=== PATIENT | female | born 1940 | race Caucasian/White ===

== ENCOUNTER → 2023-10-24 13:02 | Outpatient (REF) | payer OTHER, SELFPAY | LOC: DHCBC MAIN 13:02 | PROVIDERS: ATTENDING PHYSICIAN Nurse Practitioner; FAMILY PHYSICIAN Family Medicine | DX: I48.91 Unspecified atrial fibrillation (principal); I34.0 Nonrheumatic mitral (valve) insufficiency; I35.1 Nonrheumatic aortic (valve) insufficiency | CPT/HCPCS: 93306 ==

== ENCOUNTER → 2023-11-05 12:19 | Outpatient (REF) | payer OTHER, SELFPAY ==
[2023-11-05 14:24] LABS: Blood Urea Nitrogen 28 mg/dl (7-17); Calcium 9.6 mg/dl (8.4-10.2); Carbon Dioxide 33 mmol/L (22-30); Chloride 98 mmol/L (98-107); Glucose 102 mg/dl (70-99); Potassium 4.1 mmol/L (3.5-5.1); Sodium 139 mmol/L (135-145); eGFR > 60.00
[2023-11-05 14:32] LABS: NT-proBNP 3420 pg/ml
== END ==
LOC: REG 12:19
PROVIDERS: ATTENDING PHYSICIAN Nurse Practitioner; FAMILY PHYSICIAN Family Medicine
DX: I10 Essential (primary) hypertension (principal)
CPT/HCPCS: 36415; 80048; 83880

== ENCOUNTER → 2023-11-15 13:22 | Outpatient (REF) | payer OTHER, SELFPAY ==
[2023-11-15 15:56] LABS: Blood Urea Nitrogen 30 mg/dl (7-17); Calcium 9.5 mg/dl (8.4-10.2); Carbon Dioxide 34 mmol/L (22-30); Chloride 94 mmol/L (98-107); Glucose 102 mg/dl (70-99); Potassium 4.6 mmol/L (3.5-5.1); Sodium 137 mmol/L (135-145); eGFR > 60.00
== END ==
LOC: REG 13:22
PROVIDERS: ATTENDING PHYSICIAN Nurse Practitioner; FAMILY PHYSICIAN Family Medicine
DX: I10 Essential (primary) hypertension (principal)
CPT/HCPCS: 36415; 80048

== ENCOUNTER → 2023-12-14 08:42 | Outpatient (REF) | payer OTHER, SELFPAY ==
[2023-12-14 10:38] LABS: Erythrocyte Sed Rate 82 mm/hour (0-20)
[2023-12-14 10:39] LABS: D-Dimer 2.51 ug/mlFEU (0.00-0.50)
[2023-12-15 18:20] LABS: ds-DNA Ab, IgG Reflex To Titer 57 IU (0-24)
[2023-12-16 07:17] LABS: Scleroderma Antibody (Scl-70) 3 AU/mL (0-40)
[2023-12-16 15:23] LABS: Rheumatoid Agg. Semi-quant 512 IU; Rheumatoid Agglutinin Positive (<10 IU)
[2023-12-16 17:55] LABS: ds-DNA Ab, IgG Titer <1:10 (<1:10)
[2023-12-17 07:37] LABS: Rheumatoid Agg. Semi-quant 512 IU
== END ==
LOC: REG 08:42
PROVIDERS: ATTENDING PHYSICIAN Internal Medicine Critical Care Medicine; FAMILY PHYSICIAN Family Medicine; REFERRING PHYSICIAN Internal Medicine Hematology & Oncology
DX: I27.20 Pulmonary hypertension, unspecified (principal)
CPT/HCPCS: 36415; 85379; 85652; 86140; 86225; 86235; 86256; 86430; 86431

== ENCOUNTER 2023-12-14 18:18 | Emergency (ER) | payer OTHER, SELFPAY ==
[2023-12-14 18:21] VITALS: BP 151/60; BMI 25.3
[2023-12-14 18:49] LABS: % Basophils 0.3 % (0-2); % Eosinophils 0.6 % (0-6); % Immature Granulocytes 0.4 % (0-0.5); % Lymphocytes 12.3 % (20.5-51.1); % Monocytes 11.3 % (1.7-9.3); % Neutrophils 75.1 % (42.2-75.2); Absolute Eosinophils 0.1 10^3/uL (0-0.7); Absolute Lymphocytes 1.1 10^3/uL (1.2-3.4); Absolute Neutrophils 6.8 10^3/uL (1.4-6.5); Hematocrit 34.9 % (37.0-47.0); Hemoglobin 11.2 g/dL (12.0-16.0); Mean Corp Hgb Conc. 32.1 g/dL (33.0-37.0); Mean Corpuscular Hgb 30.2 pg (27.0-31.0); Mean Corpuscular Volume 94.1 fL (81.0-99.0); Mean Platelet Volume 10.6 fL (7.4-10.4); Nucleated Red Blood Cells % 0 %; Platelet Count 240 10^3/uL (130-400); Red Blood Cell Count 3.71 10^6/uL (4.20-5.40); Red Cell Dist. Width 14.1 % (11.5-14.5)
[2023-12-14 19:00] LABS: INR 1.04; PT 13.4 Sec (11.4-14.6)
[2023-12-14 19:14] LABS: ALT (SGPT) 14 U/L (0-35); AST (SGOT) 24 U/L (14-36); Alkaline Phosphatase 91 U/L (38-126); Blood Urea Nitrogen 23 mg/dl (7-17); Calcium 9.7 mg/dl (8.4-10.2); Carbon Dioxide 30 mmol/L (22-30); Chloride 103 mmol/L (98-107); Estimated Creatinine Clearance 45 ml/min; Glucose 112 mg/dl (70-99); Potassium 4.2 mmol/L (3.5-5.1); Sodium 140 mmol/L (135-145); Total Bilirubin 0.7 mg/dl (0.2-1.3); Total Protein 7.1 g/dl (6.3-8.2); eGFR > 60.00
[2023-12-14 19:27] LABS: Troponin I < 0.012 ng/ml
[2023-12-14 21:11] VITALS: BP 142/62
--- NOTE | 2023-12-14 22:33 | ED.GENMED ---
History of Present Illness
General
Chief Complaint: Abnormal Lab Value
Source: patient
Exam Limitations: none
Time Seen by Provider: 12/14/23 19:35
Travel History
Have you had any contact with someone who has COVID-19?: No
Do you have any symptoms of coronavirus? Fever > 100 degrees, chills, cough, shortness of breath, sore throat, loss of taste or smell, muscle aches, or headache?: No
History of Present Illness
History of Present Illness:
This is a 83 year old female that comes in with c/o abd normal labs. States that Dr. Painter had blood work done and called her Tonight. States that she was told to come to the ER as her D-dimer was elevated and that he needs a CT and ultrasound.
Patient states that she has occasional diarrhea and a headache. Denies any fever, chill, chest pain, SOB, cough, abd pain, nausea, vomiting, dizziness, urinary burning
Past History
Past History
ED Past Medical History: Arrthythmia (Paroxysmal atrial fibrillation), HTN, Hypercholesterolemia and Other (Bleeding Ulcers, IBS, bilateral plantar foot ulcers, DVT right lower extremity June 2022, back pain, Migraines, Neuropathy, UTI, Iron def
anemia, )
ED Past Surgical History: Gynecological (Hysterectomy), Orthopedic (Left knee replacement and right hip, left knee surgery, Back surgery, ) and Other (Stomach surgery for Ulcers 1/2 stomach removed)
Social History
Tobacco: Non-smoker
Alcohol: None
Drug: None
Personal:
Living: with family
Employment: Retired
Family History
Family History: Hypertension
Review of Systems
Review of Systems
All Other Systems: ROS reviewed and negative except as documented in HPI and ROS
Constitutional: Reports no symptoms; Denies fever or chills
EENT: Reports no symptoms
Respiratory: Reports no symptoms; Denies cough or trouble breathing
Cardiac: Reports no symptoms; Denies chest pain
ABD/GI: Reports diarrhea; Denies abdominal pain, nausea or vomiting
: Reports no symptoms; Denies dysuria, frequency or urgency
Musculoskeletal: Reports no symptoms
Skin: Reports no symptoms
Neurological: Reports headache; Denies dizzy
Psychiatric: Reports no symptoms
Phy Exam
General Physical Exam
General Presentation: well appearing and no apparent distress
General age: appears stated age
General Skin: warm and dry
General Habitus: elderly
General Mental: alert
General Hydration: appears well hydrated
ENT Exam
ENT Exam: TM's normal, pharynx normal and neck supple
Eye Exam
Eye Exam: EOMI
Cardiovascular Exam
Cardiovascular Exam: no edema, normal peripheral pulses and irregularly irregular
Pulmonary Exam
Pulmonary Exam: lungs clear, no respiratory distress, no rales, chest non tender, no crackles, no rhonchi, no wheezing and no cough
Gastrointestinal Exam
Gastrointestinal Exam: normal bowel sounds, non tender, soft, no organomegaly, no pulsatile mass and non distended
Musculoskeletal Exam
Musculoskeletal Exam: full ROM and no edema
Skin Exam
Skin Exam: normal color, warm/dry, no rash and no petechia
Psychiatric Exam
Psychiatric Exam: normal mood/affect
Course
Orders/Labs/Results
Orders:
Orders
12/14/23 18:24
Electrocardiogram (*1) Urgent
Reason for Study: Chest Pain
EKG- Treatment ONCE
12/14/23 18:38
Complete Blood Count/With Diff Urgent
Comprehensive Metabolic Panel Urgent
Prothrombin Time Urgent
Troponin I Urgent
12/14/23 20:56
US Periph Venous LOWER Ext Ravin Urgent
Comment: History of DVT
Reason For Exam: Bilateral lower leg swelling
12/14/23 20:58
CT Chest Pe Study Urgent
Comment:
Reason For Exam: elevated D-dimer
Abnormal Lab Results
12/14/23
18:38
RBC 3.71 L 10^6/uL
(4.20-5.40)
Hgb 11.2 L g/dL
(12.0-16.0)
Hct 34.9 L %
(37.0-47.0)
MCHC 32.1 L g/dL
(33.0-37.0)
MPV 10.6 H fL
(7.4-10.4)
Absolute Neuts (auto) 6.8 H 10^3/uL
(1.4-6.5)
Absolute Lymphs (auto) 1.1 L 10^3/uL
(1.2-3.4)
Absolute Monos (auto) 1.0 H 10^3/uL
(0.1-0.6)
Lymphocytes % 12.3 L %
(20.5-51.1)
Monocytes % 11.3 H %
(1.7-9.3)
BUN 23 H mg/dl
(7-17)
Glucose 112 H mg/dl
(70-99)
12/14/23 18:38
12/14/23 18:38
H/H slightly low, Dehydration. glucose nonfasting. PT 13.4 with INR 1.04, Troponin <0.012
Vital Signs
Initial and Last Documented VS:
Initial Vital Signs
Temp Pulse Resp BP Pulse Ox
98.4 F 76 16 151/60 95
12/14/23 18:21 12/14/23 18:21 12/14/23 18:21 12/14/23 18:21 12/14/23 18:21
Last Documented Vital Signs
Temp Pulse Resp BP Pulse Ox
98.4 F 70 16 142/62 99
12/14/23 18:21 12/14/23 21:11 12/14/23 21:11 12/14/23 21:11 12/14/23 21:11
Paleobotanist consulted with Physician
Paleobotanist consulted with physician?: Yes
Name of Physician Consulted: Dr. Harris
MDM/Problems Addressed
Differential Diagnosis Includes:
PE, abnormal labs
MDM/Problems Addressed:
This is a 83 year old female that comes in with c/o abnormal labs. States that Manjula Painter had labs done and she was called tonight and told to go to the ER. States that her D-dimer was elevated and he wanted her to get a CT chest and US.
Will get labs and CT chest. If CT chest negative will get US.
Back into see patient. 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 Will start patent on Eliquis. Spoke with Dr. Harris and Dr. Gallego as patient is very stable and not hypoxic.
Spoke with Dr. Guaman and he wound not advise for or against. Will place patient on Eliquis and discharge home. Patient to return with any concerns.
Chronic conditions affecting care: Other (History of DVT)
Acute Exacerbation and/or Progression of Chronic Illness: Other (history of DVT)
*Radiology
Radiology exam reviewed: radiology read reviewed (CT NH-Satisfactory contrast bolus. Probable age indeterminate though likely acute pulmonary embolism within a right upper lobe segmental branch, with downstream subsegmental extension ([id number]).
Chronic nonocclusive pulmonary thromboembolism is also seen along a left upper lobe segment branch, ) and all reviewed NAD by ED Provider (CT cont- beginning at its origin ([id number]). No consolidation or effusion. Additional findings: Dependent
atelectasis. Cardiomegaly. Vascular calcifications including coronary artery calcifications. Aortic annular calcifications. DJD, Diffuse osteopenia. )
*Critical Care Note
Total Time (30-74mins, 75-104mins- exclusive of procedures): Not Applicable
ED Attending Note
-
Portions of this chart may have been created with voice recognition software.� Occasional wrong word or��sound alike� substitutions may have occurred due to the inherent limitations of voice recognition software.
Discharge Plan
Departure
Patient Disposition: Home (Routine Discharge)
Date of Disposition: 12/14/23
Time of Disposition: 22:47
Admit to: Telemetry
Patient with high blood pressure during this ER visit?: Yes
Condition: Good
Covid-19: Not Applicable
Discharge Problem:
right upper lobe Pulmonary embolism
Instructions: Pulmonary embolism (blood clot in the lungs), BLOOD PRESSURE
Prescriptions:
New
Eliquis 5 mg tablet
10 mg PO BID 7 Days Qty: 28 0RF
No Action
atorvastatin 20 MG tablet
20 mg PO DAILY
atenolol 50 MG tablet
50 mg PO DAILY
calcium polycarbophil [Fiber-Tabs] 625 MG tablet
625 mg PO DAILY
dicyclomine 10 MG capsule
10 mg PO Q8HPRN PRN (Reason: Abdominal Pain )
acetaminophen [Tylenol Extra Strength] 500 MG tablet
1,000 mg PO TID
pregabalin 100 mg capsule
100 mg PO DAILY
pregabalin 100 mg capsule
200 mg PO QPM
lisinopril 40 mg tablet
40 mg PO DAILY
duloxetine 60 mg capsule,delayed release(DR/EC)
60 mg PO DAILY
ferrous sulfate 325 mg (65 mg iron) tablet
325 mg PO DAILY Qty: 1 0RF
loperamide [Imodium A-D] 2 mg capsule
2 mg PO DAILYPRN PRN (Reason: diarrhea) Qty: 1 0RF
magnesium hydroxide [Milk of Magnesia] 400 mg/5 mL Suspension
2,400 mg PO [id number] PRN (Reason: if no bm on 3rd day)
bisacodyl [Dulcolax (bisacodyl)] 10 mg Suppository
10 mg DE DAILY PRN (Reason: if no bm aftr mom)
Fleet Enema 19-7 gram/118 mL Enema
118 ml DE DAILYPRN PRN (Reason: if no bm aftr dulcolax)
oxycodone 5 mg Tablet
5 mg PO Q4HPRN PRN (Reason: acute pain)
Eliquis 2.5 mg tablet
2.5 mg PO [id number]
Rx Instructions:
Switched from therapeutic dose to post op ortho prophylaxis dose for total of 4 more weeks and stop
Referrals:
Paul Painter MD [Active] - Follow up in 5-7 days
Jay Wilhelm MD [Family Provider] -
Activity Restrictions/Additional Instructions:
As discussed, you have a right upper lobe Pulmonary embolism. You have been started on Eliquis 10mg daily BID for the next 7 days. After this you will need a second Prescription for Eliquis 5mg BID from Dr. Painter. Please follow with Dr. Painter in
the next 5-7 days for recheck. IF YOU HAVE ANY SHORTNESS OF BREATH, CHEST PAIN, OR YOU HAVE ANY OTHER CONCERNS PLEASE RETURN TO THE EMERGENCY ROOM.
Interventions
Interventions:
*Risk Screen - Suicide Last Done: 12/14/23 18:21
*General Assessment Last Done: 12/14/23 19:37
*Neglect/Abuse Screening Last Done: 12/14/23 18:21
*ED COVID-19 Vaccine History Last Done: 12/14/23 18:21
Discharge Date and Time
Print Language: VIETNAMESE
[2023-12-14 23:00] VITALS: BP 164/69
[2023-12-14] MEDS: ELIQUIS 10 MG PO (23:03)
== END 2023-12-14 23:36 | disposition home or self-care (01) ==
LOC: EMR 18:18
PROVIDERS: Emergency Medicine; EMERGENCY PHYSICIAN Student in an Organized Health Care Education/Training Program; FAMILY PHYSICIAN Family Medicine
DX: I26.99 Other pulmonary embolism without acute cor pulmonale (principal); I48.0 Paroxysmal atrial fibrillation; I11.9 Hypertensive heart disease without heart failure; E78.00 Pure hypercholesterolemia, unspecified; K58.0 Irritable bowel syndrome with diarrhea; Z79.01 Long term (current) use of anticoagulants; Z82.49 Family history of ischemic heart disease and other diseases of the circulatory system; Z86.718 Personal history of other venous thrombosis and embolism; Z87.440 Personal history of urinary (tract) infections; Z90.710 Acquired absence of both cervix and uterus
CPT/HCPCS: 99284; 36415; 71275; 80053; 84484; 85025; 85379; 85610; 85652; 86140; 86225; 86235; 86256; 86430; 86431; 93005; Q9967

== ENCOUNTER → 2023-12-20 11:36 | Outpatient (REF) | payer OTHER, SELFPAY ==
[2023-12-23 11:52] LABS: Alpha-1-Antitrypsin 186 mg/dL (90-200); Alpha-1-Antitrypsin Phenotype M1M1
== END ==
LOC: REG 11:36
PROVIDERS: ATTENDING PHYSICIAN Internal Medicine Critical Care Medicine; FAMILY PHYSICIAN Family Medicine
DX: J44.9 Chronic obstructive pulmonary disease, unspecified (principal)
CPT/HCPCS: 36415; 82103; 82104

== ENCOUNTER → 2024-01-02 10:49 | Outpatient (REF) | payer OTHER, SELFPAY ==
[2024-01-04 18:23] LABS: Alpha-1-Antitrypsin 185 mg/dL (90-200)
== END ==
LOC: RAD 10:49
PROVIDERS: ATTENDING PHYSICIAN Internal Medicine Critical Care Medicine; FAMILY PHYSICIAN Family Medicine
DX: Z86.718 Personal history of other venous thrombosis and embolism (principal); I26.99 Other pulmonary embolism without acute cor pulmonale; J44.9 Chronic obstructive pulmonary disease, unspecified
CPT/HCPCS: 36415; 82103; 93970

== ENCOUNTER → 2024-01-08 15:26 | Outpatient (REF) | payer OTHER, SELFPAY | LOC: RAD 15:26 | PROVIDERS: ATTENDING PHYSICIAN Internal Medicine Critical Care Medicine; FAMILY PHYSICIAN Family Medicine | DX: I27.20 Pulmonary hypertension, unspecified (principal) | CPT/HCPCS: 71250 ==

== ENCOUNTER → 2024-01-15 11:19 | Outpatient (REF) | payer OTHER, SELFPAY | LOC: DHCBC/DCA 11:19 | PROVIDERS: ATTENDING PHYSICIAN Internal Medicine Cardiovascular Disease; FAMILY PHYSICIAN Family Medicine | DX: R06.09 Other forms of dyspnea (principal); R07.89 Other chest pain | CPT/HCPCS: 78452; 93017; A9500; J2785 ==

== ENCOUNTER → 2024-02-08 09:45 | Outpatient (REF) | payer OTHER, SELFPAY ==
[2024-02-08 11:34] LABS: Albumin 3.9 g/dl (3.5-5.0); Blood Urea Nitrogen 34 mg/dl (7-17); Calcium 9.9 mg/dl (8.4-10.2); Carbon Dioxide 30 mmol/L (22-30); Chloride 98 mmol/L (98-107); Glucose 88 mg/dl (70-99); Phosphorus 3.5 mg/dl (2.5-4.5); Potassium 4.4 mmol/L (3.5-5.1); Sodium 138 mmol/L (135-145); eGFR > 60.00
== END ==
LOC: REG 09:45
PROVIDERS: ATTENDING PHYSICIAN Internal Medicine Cardiovascular Disease; FAMILY PHYSICIAN Family Medicine
DX: R06.09 Other forms of dyspnea (principal); I10 Essential (primary) hypertension
CPT/HCPCS: 80048; 82040; 84100

== ENCOUNTER → 2024-02-22 10:45 | Outpatient (REF) | payer OTHER, SELFPAY ==
[2024-02-22 11:26] LABS: Reticulocyte Count 1.7 % (0.4-2.8)
[2024-02-22 11:52] LABS: Iron 53 ug/dl (37-170); LDH 184 U/L (120-246)
[2024-02-22 12:02] LABS: Percent Saturation 22 % (20-50); Total Iron Binding Capacity 231 ug/dl (265-497)
[2024-02-22 12:21] LABS: Erythrocyte Sed Rate 100 mm/hour (0-20)
[2024-02-22 12:43] LABS: Vitamin B12 > 1000 pg/ml (239-931)
[2024-02-24 13:44] LABS: % Basophils 0.5 % (0-2); % Eosinophils 1.2 % (0-6); % Immature Granulocytes 0.7 % (0-0.5); % Lymphocytes 14.7 % (20.5-51.1); % Monocytes 11.1 % (1.7-9.3); % Neutrophils 71.8 % (42.2-75.2); Absolute Lymphocytes 1.1 10^3/uL (1.2-3.4); Absolute Neutrophils 5.3 10^3/uL (1.4-6.5); Hematocrit 30.1 % (37.0-47.0); Hemoglobin 9.8 g/dL (12.0-16.0); Mean Corp Hgb Conc. 32.6 g/dL (33.0-37.0); Mean Corpuscular Hgb 29.3 pg (27.0-31.0); Mean Corpuscular Volume 90.1 fL (81.0-99.0); Mean Platelet Volume 11.1 fL (7.4-10.4); Platelet Count 242 10^3/uL (130-400); Red Blood Cell Count 3.34 10^6/uL (4.20-5.40); Red Cell Dist. Width 14.3 % (11.5-14.5); White Blood Cell Count 7.4 10^3/uL (4.8-10.8)
[2024-02-24 13:45] LABS: Absolute Eosinophils 0.1 10^3/uL (0-0.7); Absolute Immature Granulocytes 0.1 10^3/uL (0-0.05); Absolute Monocytes 0.8 10^3/uL (0.1-0.6); Nucleated Red Blood Cells % 0 %
[2024-02-24 15:45] LABS: Erythropoietin (EPO) 18 mU/mL (4-27)
[2024-02-24 17:02] LABS: Haptoglobin 256 mg/dL (30-200)
[2024-02-24 17:40] LABS: Beta-2-Microglobulin 4.1 mg/L (<=3.0)
== END ==
LOC: REG 10:45
PROVIDERS: ATTENDING PHYSICIAN Internal Medicine Hematology & Oncology; FAMILY PHYSICIAN Family Medicine
DX: D50.9 Iron deficiency anemia, unspecified (principal); D47.2 Monoclonal gammopathy; D64.9 Anemia, unspecified; D51.9 Vitamin B12 deficiency anemia, unspecified
CPT/HCPCS: 36415; 81240; 81241; 82232; 82595; 82607; 82668; 82728; 82784; 83010; 83521; 83540; 83550; 83615; 84155; 84165; 85025; 85045; 85652; 86146; 86147; 86157; 86334; 86880

== ENCOUNTER → 2024-03-13 08:42 | Outpatient (REF) | payer OTHER, SELFPAY ==
[2024-03-13 11:27] LABS: % Basophils 0.2 % (0-2); % Eosinophils 1.1 % (0-6); % Immature Granulocytes 0.5 % (0-0.5); % Lymphocytes 9.5 % (20.5-51.1); % Monocytes 12.4 % (1.7-9.3); % Neutrophils 76.3 % (42.2-75.2); Absolute Eosinophils 0.1 10^3/uL (0-0.7); Absolute Lymphocytes 0.8 10^3/uL (1.2-3.4); Absolute Neutrophils 6.2 10^3/uL (1.4-6.5); Hematocrit 32.2 % (37.0-47.0); Hemoglobin 10.3 g/dL (12.0-16.0); Mean Corpuscular Hgb 28.7 pg (27.0-31.0); Mean Corpuscular Volume 89.7 fL (81.0-99.0); Mean Platelet Volume 11.6 fL (7.4-10.4); Nucleated Red Blood Cells % 0 %; Platelet Count 201 10^3/uL (130-400); Red Blood Cell Count 3.59 10^6/uL (4.20-5.40); Red Cell Dist. Width 14.3 % (11.5-14.5); Reticulocyte Count 1.8 % (0.4-2.8); White Blood Cell Count 8.1 10^3/uL (4.8-10.8)
[2024-03-13 11:39] LABS: Blood Urea Nitrogen 36 mg/dl (7-17); Iron 40 ug/dl (37-170)
[2024-03-13 11:49] LABS: Percent Saturation 18 % (20-50); Total Iron Binding Capacity 217 ug/dl (265-497)
[2024-03-13 12:10] LABS: TSH Reflex To Free T4 2.15 uIU/ml (0.47-4.68)
== END ==
LOC: RAD 08:42
PROVIDERS: ATTENDING PHYSICIAN Internal Medicine Hematology & Oncology; FAMILY PHYSICIAN Family Medicine; REFERRING PHYSICIAN Nurse Practitioner
DX: D50.9 Iron deficiency anemia, unspecified (principal); D47.2 Monoclonal gammopathy; D64.9 Anemia, unspecified; D51.9 Vitamin B12 deficiency anemia, unspecified
CPT/HCPCS: 36415; 82565; 82728; 83540; 83550; 84443; 84520; 85025; 85045; 86850; 86900; 86901; 93971

== ENCOUNTER 2024-04-12 17:58 | Inpatient (IN) | payer OTHER, SELFPAY ==
[2024-04-12] VITALS (33 sets, daily range): BP systolic 71–143; BP diastolic 34–93; BMI 27.2; BMI 27.6
[2024-04-12 15:20] LABS: % Basophils 0.2 % (0-2); % Eosinophils 0.1 % (0-6); % Immature Granulocytes 2.5 % (0-0.5); % Monocytes 5.7 % (1.7-9.3); % Neutrophils 81.5 % (42.2-75.2); Absolute Immature Granulocytes 0.4 10^3/uL (0-0.05); Absolute Lymphocytes 1.7 10^3/uL (1.2-3.4); Absolute Neutrophils 14.1 10^3/uL (1.4-6.5); Hematocrit 33.7 % (37.0-47.0); Hemoglobin 11.2 g/dL (12.0-16.0); Mean Corp Hgb Conc. 33.2 g/dL (33.0-37.0); Mean Corpuscular Hgb 29.2 pg (27.0-31.0); Mean Corpuscular Volume 87.8 fL (81.0-99.0); Mean Platelet Volume 11.1 fL (7.4-10.4); Nucleated Red Blood Cells % 2.9 %; Platelet Count 390 10^3/uL (130-400); Red Blood Cell Count 3.84 10^6/uL (4.20-5.40); Red Cell Dist. Width 16.3 % (11.5-14.5); White Blood Cell Count 17.3 10^3/uL (4.8-10.8)
[2024-04-12] MEDS: NSS 500 IV ×2 (15:20→16:33)
[2024-04-12 15:35] LABS: Lactic Acid 4.7 mmol/L (0.7-2.0)
[2024-04-12 15:50] LABS: Troponin I 0.698 ng/ml
--- NOTE | 2024-04-12 15:54 | PHANOTE ---
med rec note- tried to talk to spouse about med list he said he copied directions from bottles, but directions on med list for Lyrica 100mg bid, but pharmacy show 100mg tid and ecw show 100mg hs. spouse asked patient and i believe i heard her say
100mg hs. med list provided by spouse natasha eid pharmacy list will also compare ecw and pharmacy
[2024-04-12 16:03] LABS: Venous Blood Gas HCO3 17.5 mmol/L (22-27); Venous Blood Gas O2 Sat % 90.9 %; Venous Blood Gas pCO2 39 mmHg (35-48); Venous Blood Gas pH 7.26 (7.32-7.43); Venous Blood Gas pO2 65 mmHg (30-50)
[2024-04-12 16:04] LABS: NT-proBNP > 27000 pg/ml
[2024-04-12] MEDS: LEVOPHED 250 IV (16:23)
[2024-04-12 16:26] LABS: Blood Urea Nitrogen 73 mg/dl (7-17); Calcium 8.7 mg/dl (8.4-10.2); Carbon Dioxide 16 mmol/L (22-30); Chloride 101 mmol/L (98-107); Estimated Creatinine Clearance 15 ml/min; Glucose 58 mg/dl (70-99); Sodium 134 mmol/L (135-145); eGFR 17.87
--- NOTE | 2024-04-12 16:35 | ED.GENMED ---
History of Present Illness
General
Chief Complaint: Breathing Problem
Source: patient and family
Exam Limitations: clinical condition
Time Seen by Provider: 04/12/24 14:58
History of Present Illness
History of Present Illness:
83-year-old lady with a history of A-fib, PE who presents with family due to feeling lethargic. Patient's states that she has been somewhat lethargic over several weeks and it seems to be waxing and waning. He states he only brought her in
today because he has been recurrent. He states a week or 2 ago she was similar for couple days. Patient is due for bone marrow biopsy because she is followed by hematology. In addition she has been dealing with a foot wound for some time. No
reported fevers. Patient states she just feels weak. She does not necessarily feel short of breath. No chest pain. She took her Eliquis today
Past History
Past History
ED Past Medical History: Arrthythmia (Paroxysmal atrial fibrillation), HTN, Hypercholesterolemia and Other (Bleeding Ulcers, IBS, bilateral plantar foot ulcers, DVT right lower extremity June 2022, back pain, Migraines, Neuropathy, UTI, Iron def
anemia, )
ED Past Surgical History: Gynecological (Hysterectomy), Orthopedic (Left knee replacement and right hip, left knee surgery, Back surgery, ) and Other (Stomach surgery for Ulcers 1/2 stomach removed)
Social History
Tobacco: Non-smoker
Alcohol: None
Drug: None
Personal:
Living: with family
Employment: Retired
Family History
Family History: Hypertension
Phy Exam
Physical Exam
Physical Exam:
CONSTITUTIONAL Patient alert and oriented to person, place and time. ill-appearing. Vital signs reviewed. Hypotensive, hypoxic, tachycardic
HEAD atraumatic, normocephalic.
EYES eyelids normal to inspection, Extraocular muscles intact, Conjunctiva normal, Sclera normal.
NECK normal range of motion, Trachea midline, no jugular venous distention.
RESPIRATORY CHEST grossly clear, slightly diminished at bilateral bases
CARDIOVASCULAR irregularly irregular and tachycardic
ABDOMEN abdomen nontender, Bowel sounds normal. No distention.
BACK normal inspection, no obvious deformities
UPPER EXTREMITY range of motion normal, Motor strength normal, cyanotic nailbeds, poor cap refill
LOWER EXTREMITY range of motion normal, Motor strength normal, cyanotic nailbeds, poor cap refill. Necrotic wound noted to the heel
NEURO Speech normal, No focal motor deficits, Rohan coma scale 15, Memory normal, Cranial Nerves intact to screening exam.
SKIN skin pale and cool.
Scores
Heart Failure Risk
Heart Failure Risk Score: Not Applicable
Course
Orders/Labs/Results
Orders:
Orders
04/12/24
Electrocardiogram (*1) Stat
Reason for Study: Atrial Fibrillation
Electrocardiogram (*1) Stat
Reason for Study: Atrial Fibrillation
04/12/24 Dinner
NPO
Allow oral meds: No
Allow clear liquids: Sips of Clears
NPO with Ice Chips: Yes
04/12/24 15:04
Cardiac Monitoring- Treatment ONCE
0.9% Sodium Chloride 500 ml [Nss] 500 ml IV BOLUS
CR Chest Portable - 1 View Urgent
Comment:
Reason For Exam: hypoxia
Reason Study Needs to be Portable: Patient Unstable
04/12/24 15:11
Complete Blood Count/With Diff Urgent
Lactic Acid Urgent
NT-proBNP Urgent
Troponin I Urgent
04/12/24 15:34
0.9% Sodium Chloride 500 ml [Nss] 500 ml IV BOLUS
04/12/24 15:46
Type+Screen Urgent
BBK Wristband Number:
Basic Metabolic Panel Urgent
COVID-19 Antigen Urgent
Source: Nasal Swab
Venous Blood Gas Stat
%Oxygen/Room Air: 85
Blood Culture Stat
VICENTE Source: Blood/Venous
Specimen Description:
08/18/24 16:18
NORepinephrine 4 MG/250 ML [Levophed] 4 mg in 250 ml IV NOW
Initial dose in mcg/min, then titrate:: 2
Titrate to keep:: MAP > 65 mmHg
Titrate by mcg/min:: 1-2 mcg/min
Frequency of titrations (minutes):: 5
Maximum dose in ICU in mcg/min:: 30
Maximum dose in IMU in mcg/min:: 8
Maximum dose in IVU in mcg/min:: 4
Begin to taper infusion when:: Remained at goal for 4hrs
Taper by mcg/min:: 1-2 mcg/min
Frequency of taper (minutes) if patient maintains goal:: 30
Taper to off?: Yes
If infusion off & no longer maintaining goal:: Contact Provider
Piperacillin/Tazo 3.375 Gram [Zosyn] 3.375 gram in 50 ml IV NOW
Vancomycin 1 Gram/200 ml [Vancocin] 1 gram in 200 ml IV NOW
04/12/24 16:34
CT Chest/abd/pel Wo Iv Cont Stat
Reason For Exam: hypoxia
04/12/24 17:34
Admit/Transfer Patient As Directed
Co-Sign Provider:
Level of Care: Inpatient admission
Assign to:: ICU
Physician / Group: Dr Lucero
Diagnosis: Septic shock/Respiratory Failure
Reason for Hospitalization: Patient presented with sepsis and respiratory failure
Expected length of stay greater than two midnights?: Yes
ELOS- Estimated Length of Stay in days: 4
I certify the patient meets the requirements for IP care: Yes
PRN Pain Medication Management As Directed
May give lesser potent ordered pain med per pt: Yes
preference::
Protocol:: Medication orders for pain may be administered in a
manner that supports deferring to patient preference
when the pt is:
- Requesting an ordered lesser potent pain medication.
Least to most potent pain medications are defined
as: acetaminophen < NSAID < tramadol < opioids
(morphine, oxycodone, hydromorphone).
- Requesting a lesser dose of the same medication IF
ORDERED.
- Requesting a less intrusive route of administration
if both routes are prescribed by the provider (PO <
IV).
04/12/24 17:35
Code Status As Directed
Resuscitation Status: Full Code
04/12/24 17:39
0.9% Sodium Chloride 1000 ml [Nss] 1,000 ml IV BOLUS
Oxygen Mask - Non-rebreather [RESP] Stat
04/12/24 17:40
It Security Administrator Consult Routine
Consulting Provider: Lisa Wynn
Was physician already notified: Yes
Reason for consult: Septic shock
04/12/24 17:45
NORepinephrine 4 MG/250 ML [Levophed] 4 mg in 250 ml IV PER PROTOCOL
Initial dose in mcg/min, then titrate:: 4
Titrate to keep:: MAP > 65 mmHg
Titrate by mcg/min:: 1-2 mcg/min
Frequency of titrations (minutes):: 5
Maximum dose in ICU in mcg/min:: 30
Maximum dose in IMU in mcg/min:: 8
Maximum dose in IVU in mcg/min:: 4
Begin to taper infusion when:: Remained at goal for 4hrs
Taper by mcg/min:: 1-2 mcg/min
Frequency of taper (minutes) if patient maintains goal:: 30
Taper to off?: Yes
If infusion off & no longer maintaining goal:: Contact Provider
04/12/24 17:49
Dextrose 50%-Water [Dextrose 50% Syringe] 25 grams .ROUTE .STK-MED ONE
Dextrose 50%-Water [Dextrose 50% Syringe] 25 grams IV NOW STA
04/12/24 18:00
Dextrose 5%/0.9%Sodchl 1000 ml [D5/0.9% Sodium Chloride] 1,000 ml IV 125 mls/hr
VANCOMYCIN Pharmacy to Dose [VANCOCIN Pharmacy to Dose] 1 each Pharmacy To Prepare [Call Pharmacy To Prepare] 0 ml IV PER PROTOCOL
04/12/24 19:30
Pantoprazole [Protonix IV] 40 mg IV DAILY
04/12/24 19:30
Activity As Directed
Activity Level: Bedrest for limited time
Bedrest duration in hours then activity as indicated above:: 12
Intake/ Output As Directed
Frequency: Per unit guidelines
Pneumatic Compression Sleeves As Directed
Type: Knee high
Vital Signs As Directed
Frequency: Per unit guidelines
DX Deep Vein Thrombosis Video Routine
04/12/24 19:51
Lactic Acid Q4H
Comment: repeat q4 hours x 4 or until less than 2 mmol/L
04/12/24 21:35
Urinalysis Reflex To Culture Stat
Date Specimen was Collected: 04/12/24
Time Specimen was Collected: 21:34
04/12/24 23:30
Lactic Acid Q4H
Comment: repeat q4 hours x 4 or until less than 2 mmol/L
04/13/24 03:30
Lactic Acid Q4H
Comment: repeat q4 hours x 4 or until less than 2 mmol/L
04/13/24 06:00
Complete Blood Count/With Diff IN AM
Comprehensive Metabolic Panel IN AM
04/13/24 07:30
Lactic Acid Q4H
Comment: repeat q4 hours x 4 or until less than 2 mmol/L
Abnormal Lab Results
04/12/24 04/12/24 04/12/24
15:11 15:46 17:46
WBC 17.3 H 10^3/uL
(4.8-10.8)
RBC 3.84 L 10^6/uL
(4.20-5.40)
Hgb 11.2 L g/dL
(12.0-16.0)
Hct 33.7 L %
(37.0-47.0)
RDW 16.3 H %
(11.5-14.5)
MPV 11.1 H fL
(7.4-10.4)
Abs Immat Gran (auto) 0.4 H 10^3/uL
(0-0.05)
Absolute Neuts (auto) 14.1 H 10^3/uL
(1.4-6.5)
Absolute Monos (auto) 1.0 H 10^3/uL
(0.1-0.6)
Immature Gran % 2.5 H %
(0-0.5)
Neutrophils % 81.5 H %
(42.2-75.2)
Lymphocytes % 10.0 L %
(20.5-51.1)
VBG pH 7.26 L
(7.32-7.43)
VBG pO2 65 H mmHg
(30-50)
VBG HCO3 17.5 L mmol/L
(22-27)
Sodium 134 L mmol/L
(135-145)
Carbon Dioxide 16 L mmol/L
(22-30)
BUN 73 H mg/dl
(7-17)
Creatinine 2.6 H mg/dL
(0.6-1.0)
Glucose 58 L mg/dl
(70-99)
Lactic Acid 4.7 H* mmol/L
(0.7-2.0)
Troponin I 0.698 H* ng/ml
POC Glucose 41 L* mg/dl
(70-99)
04/12/24 15:11
04/12/24 15:46
Vital Signs
Initial and Last Documented VS:
Initial Vital Signs
Pulse Resp BP
122 16 116/91
04/12/24 14:43 04/12/24 14:43 04/12/24 14:43
Last Documented Vital Signs
Temp Pulse Resp BP Pulse Ox
99.1 F 155 21 115/86 94
04/12/24 20:10 04/12/24 18:30 04/12/24 18:30 04/12/24 18:30 04/12/24 15:43
MDM/Problems Addressed
MDM/Problems Addressed:
Type II NSTEMI, acute renal failure, septic shock, necrotic foot ulcer, atrial fibrillation with RVR
*Radiology
Radiology exam reviewed: preliminary read by ED provider (Enlarged cardiac silhouette, no focal infiltrate)
*Pulse Oximetry
Patient hypoxic: yes
*EKG
Interpreted by ED Provider?: Yes
Interpretation: abnormal
Rate: tachycardiac
Rhythm: a-fib
Ischemia: non-specific ST changes
*Pig Iron Loader Interpretation
Rate: tachycardiac
Interpretation: abnormal
Rhythm: a-fib
*Critical Care Note
Total Time (30-74mins, 75-104mins- exclusive of procedures): 80 minutes
Data Reviewed
Review of Other/Old Records Reveals: Labs, Records and Radiology Studies (Prior CT scan)
Source: patient
Further Testing Considered But Not Given:
Consider CTA but given her renal function we will hold off given the fact that she is taking her Eliquis today.
Patient Management
Discussion with other providers: Hospitalist
Escalation/DeEscalation of care consider admission/obs:
Acutely and severely ill 83-year-old female. I suspect septic shock is the main etiology. She has a lactic acidosis. She also has very poor perfusion and I suspect her hypoxia is related to poor perfusion. Likely type II NSTEMI. Also in rapid
A-fib which is complicating her presentation then likely secondary to her severe septic shock. Did respond well to vasopressors. Need to be cautious with IV fluids as she already has pleural effusions on her CT scan. Held off on 30/kg due to
effusions bilaterally and hypoxia. Continue to monitor closely. Case was discussed at length with the patient's family and they are aware of her serious illness. Consideration of source to be her heel ulcer versus UTI. Urinalysis pending. Prior
urine cultures were reviewed. She has had E. coli and Klebsiella that were pansensitive. Admit to the ICU
Update Note
Update Note:
Blood sugar checked again and noted to be hypoglycemic. Treat with D50. Hospitalist aware. May need glucose in her fluids
ED Attending Note
-
Portions of this chart may have been created with voice recognition software.� Occasional wrong word or��sound alike� substitutions may have occurred due to the inherent limitations of voice recognition software.
Discharge Plan
Departure
Patient Disposition: Admit
Date of Disposition: 04/12/24
Time of Disposition: 16:35
Admit to: ICU
Presentation/result/management discussed w/ accepting MD/DO: Hospitalist
Discharge Problem:
Septic shock, Acute renal failure, Atrial fibrillation with RVR, Hypoxia, Acute lactic acidosis, Urinary tract infection
Interventions
Interventions:
*Risk Screen - Suicide Last Done: 04/12/24 15:12
*General Assessment Last Done: 04/12/24 15:12
*Neglect/Abuse Screening Last Done: 04/12/24 15:12
*ED COVID-19 Vaccine History Last Done: 04/12/24 20:42
*Nursing Disposition Last Done: 04/12/24 20:03
ED- Cardiac Assessment Last Done: 04/12/24 15:13
ED- Pulmonary Assessment Last Done: 04/12/24 16:00
Discharge Date and Time
Discharge Date/Time: 04/12/24 20:05
[2024-04-12 16:47] LABS: COVID-19 Antigen Negative (Negative)
[2024-04-12] MEDS: ZOSYN 50 IV ×2 (17:18→23:36)
--- NOTE | 2024-04-12 17:38 | HPS.HSE ---
Family Physician
-
Family Physician: Jay Wilhelm
Chief Complaint
-
Altered mental status and generalized weakness
History of Present Illness
Patient 83 years old female with history of hypertension, hyperlipidemia, A-fib, plantar foot ulcer, PE/DVT, UTIs in the past, presented to the hospital with mental status changes and generalized weakness. Patient's family including son and
and [id number] helping with some of the history as well. Patient has been weak for over 2 to 3 weeks and she has been noticed to have mental status changes over the last several days with decreased mentation associated with poor oral intake
and being very drowsy lately as well as confused and incoherent. She has been sleeping more than usual as well. She has some cough, has been dealing with ulcer in her foot for about a year and a half, and denies abdominal pain nausea or vomiting.
No dysuria urgency noticed. No chest pain. No shortness of breath but has been noticed to be laboring breathing today. No fevers or chills reported. 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 In the ER, she had a white count of 17,000 with a lactate of 4.[address] scan of chest and abdomen pelvis pending. She was given IV fluids 1 L but concerns due to respiratory status and was started on pressors.
She was referred to hospitalist for further evaluation.
Medical History
Past Medical History
Past Medical History: Reports HTN, Hypercholesterolemia and Other (On eliquis for Hx of DVT R LE discovered 06/2022 while hospitalized for cellulitis LLE. Also history of chronic wound left lower extremity. History of atrial fibrillation in the
past.)
Past Surgical History: Reports Orthopedic (Left TKA 08/29/16)
Social History
Tobacco: Non-smoker
Alcohol: None
Drug: None
Personal:
Living: With Family
Family History
Family History: Not pertinent
Allergies / Home Medications
Allergies reflects when Allergies were last updated in [facility].
Home Medications with original date entered in [facility]
Allergy/Medication List:
Allergies
Allergy/AdvReac Type Severity Reaction Status Date / Time
Sulfa (Sulfonamide Allergy Rash-1961 Verified 04/12/24 15:39
Antibiotics)
sulfamethoxazole Allergy Rash-1960 Verified 04/12/24 15:39
trimethoprim Allergy Rash-1960 Verified 04/12/24 15:39
Home Medications
atenolol 50 mg tablet 50 mg PO DAILY Blood pressure 08/01/16
atorvastatin 20 mg tablet 20 mg PO QPM High cholesterol 08/01/16
acetaminophen 500 mg tablet (Tylenol Extra Strength) 1,000 mg PO TIDPRN PRN mild pain 06/01/22
lisinopril 40 mg tablet 40 mg PO DAILY Blood pressure 07/24/22
pregabalin 100 mg capsule 100 mg PO HS Pain 07/24/22
duloxetine 60 mg capsule,delayed release 60 mg PO DAILY Pain 09/30/22
apixaban 5 mg tablet (Eliquis) 5 mg PO BID Blood clot prevention/tx 04/12/24
furosemide 20 mg tablet (Lasix) 20 mg PO BID 04/12/24
lisinopril 20 mg tablet 20 mg PO QPM 04/12/24
Review of Systems
-
A 12 point ROS was completed and negative except as noted: Yes
Physical Exam
Vital Signs
Vital Signs
Temp Pulse Resp BP Pulse Ox
99.4 F 133 16 84/37 94
04/12/24 15:50 04/12/24 16:16 04/12/24 16:16 04/12/24 16:16 04/12/24 15:43
Physical exam:
General: Acutely ill. Toxic appearance
HEENT: Normocephalic, Atraumatic and Dry Mucous Membranes
Respiratory: Decreased breath sounds bilateral; Clear to Auscultation; Negative Wheezes, Rales or Rhonchi
Cardiac: Irregular rate and rhythm, tachycardic, and S1/S2, systolic murmur
GI: Soft, Nontender and Nondistended
Musculoskeletal: Left heel wound with some erythema, no discharge noticed. No Clubbing, No Cyanosis and No Edema
Neuro: Lethargic, does follow simple commands and answer questions appropriately but goes back to sleep. No focality on her exam.
Physical Exam
General: Other
Laboratory Results
-
04/12/24 15:11
04/12/24 15:46
Laboratory Results
Lactic Acid 4.7 mmol/L (0.7-2.0) H* 04/12/24 15:11
Total Bilirubin Cancelled 04/12/24 15:46
AST Cancelled 04/12/24 15:46
ALT Cancelled 04/12/24 15:46
Alkaline Phosphatase Cancelled 04/12/24 15:46
Troponin I 0.698 ng/ml H* 04/12/24 15:11
Impression/Plan
-
IMPRESSION:
Patient 83 years female with multiple comorbidities came into the hospital with generalized weakness and mental status changes and found to be in septic shock. Patient critically ill and with increased risk morbidity mortality and needs to be in
the hospital for treatment and monitoring.
PLAN:
Septic shock with multiorgan failure:
Broad-spectrum antibiotics, Zosyn and vancomycin
Unclear source
Another liter bolus normal saline wide open
Continue with IV fluids but hopefully with pressors we can attenuate needs for fluid
Continue Levophed for MAP of 65
Follow-up cultures
Obtain UA urine culture
Obtain cultures from the wound on the left foot.
Follow-up trend of white blood cell count-current WBC 17
Trend lactate-current lactate 4.7
Follow-up temperature curve
CT chest and abdomen and pelvis pending report. On my review just some pleural effusions and nonspecific findings but nothing acutely abnormal.
Seen chest x-ray as well and no acute chest pathology.
Discussed with family at bedside and explained the seriousness of the situation and guarded prognosis. Family wishes to proceed with aggressive measures including antibiotics, pressors, mechanical ventilation if required and will reevaluate
depending on her clinical course.
COVID-19 negative
Critical care consult ([place] texted today)- who will likely see her tomorrow
Acute hypoxic respiratory failure:
Due to sepsis and underlying valvulopathy and heart failure
Nonrebreather mask at this point 100%
We can use also BiPAP if needed
Keep n.p.o. given acute situation and likely need for intubation until clinical improvement noticed and then can start oral intake
Ultimately might need intubation and mechanical ventilation if worsens explained this to patient and family at bedside.
Atrial fibrillation with rapid ventricular response:
Worsening due to sepsis
Once we get septic picture under control, we should be able to control A-fib
Might consider amiodarone drip if heart rate does not improve and for less effect on hemodynamic
Hold Eliquis tonight due to respiratory status. Consider heparin drip if prolonged n.p.o. status or if cardiac enzymes worsens otherwise we will go back to Eliquis tomorrow
Cardiac monitoring
Acute kidney injury:
Creatinine 2.6 today
Drummond catheter for critical illness and acute kidney injury
Avoid nephrotoxic
Hyponatremia:
Monitor sodium closely
Elevated troponin:
Elevated troponin likely due to non-ischemic myocardial injury due to sepsis
Cannot rule out ACS yet
Consider heparin drip if cardiac enzymes considerably worsens
Trend cardiac enzymes
Cardiac monitoring
Anemia and pancytopenia in the past:
Monitor hemoglobin closely
Family tells me that is in the works of bone marrow biopsy for suspicions of diagnosis of non-Hodgkin lymphoma
Acute on chronic diastolic congestive heart failure:
Will diurese after hemodynamic improves
Reviewed latest echocardiogram in our system
BNP over 27,000
Septic and toxic metabolic encephalopathy:
Etiology sepsis but also hypoglycemia contributing
Provide D50 and D5 with normal saline
Monitor mental status and glucose closely
Metabolic acidosis:
IV fluids
If worsens may need bicarb drip
Continue to monitor
Left foot wound:
Antibiotics
Cultures
DVT prophylaxis:
SCDs
Will resume Eliquis likely by tomorrow
CODE STATUS:
Full code
Total Critical Care Time 65 minutes. I was immediately available to the patient and staff. I personally examined, reviewed labs, diagnostic images/reports, interpretations, treatment plans, discussed patient care with other providers and family
or caregivers (if patient is unable to make decisions), entered orders as appropriate and documented the medical record.
[2024-04-12 17:49] LABS: Glucose - Point of Care 41 mg/dl (70-99)
[2024-04-12] MEDS: DEXTROSE 50% SYRINGE 25 GRAMS IV (17:50)
[2024-04-12] MEDS: NSS 1000 IV (18:16)
[2024-04-12 18:21] LABS: Glucose - Point of Care 99 mg/dl (70-99)
--- NOTE | 2024-04-12 18:50 | PHA.VAN.IN ---
Assessment
- Assessment
Renal Function: Appears elevated from baseline (SCR 2.6 vs ~0.8)
Concomitant Antimicrobials: piperacillin/tazobactam
Plan
- Plan
Initial / Loading Dose: 1000mg - 04/12 19:04 PLUS 500mg - administration pending
Maintenance Regimen: dosing by level
Monitoring: random 04/13 06
Pharmacokinetics Vancomycin I
- -
Patient Age: 83
Patient Sex: Female
Vancomycin Day #: 1
Indication: Bacteremia
Requesting Provider: Dr. Lucero
Pertinent Antimicrobial Allergies:
sulfonamide antibiotics - rash in 1961
Height / Weight:
Height 5 ft 2 in
Actual Weight 67.4 kg
- Vital Signs / Lab Results
Temp Pulse Resp BP Pulse Ox
99.4 F 155 21 115/86 94
04/12/24 15:50 04/12/24 18:30 04/12/24 18:30 04/12/24 18:30 04/12/24 15:43
Lab Results - Hematology
04/12/24
15:11
WBC 17.3 H
Lab Results - Chemistry
04/12/24 04/12/24
15:11 15:46
BUN Cancelled 73 H
Creatinine Cancelled 2.6 H
Estimated Creat Clear Cancelled 15
Albumin Cancelled Cancelled
04/12/24
15:11
Lactic Acid 4.7 H*
[2024-04-12] MEDS: VANCOCIN 200 IV (19:04)
[2024-04-12 20:17] LABS: Lactic Acid 5.3 mmol/L (0.7-2.0)
[2024-04-12 20:28] LABS: Blood Urea Nitrogen 72 mg/dl (7-17); Calcium 8.9 mg/dl (8.4-10.2); Carbon Dioxide 10 mmol/L (22-30); Chloride 104 mmol/L (98-107); Estimated Creatinine Clearance 15 ml/min; Glucose 117 mg/dl (70-99); Magnesium 1.7 mg/dl (1.6-2.3); Phosphorus 8.2 mg/dl (2.5-4.5); Potassium 5.6 mmol/L (3.5-5.1); Sodium 135 mmol/L (135-145); eGFR 17.87
[2024-04-12] MEDS: PROTONIX IV 40 MG IV (20:34)
[2024-04-12] MEDS: NSS (PRESERVATIVE FREE) 10 ML IV (20:34)
[2024-04-12] MEDS: SODIUM BICARBONATE 50 MEQ IV (20:49)
[2024-04-12] MEDS: VANCOCIN HCL 500 MG 100 IV (21:12)
[2024-04-12] MEDS: SODIUM BICARBONATE 1150 MEQ IV (21:37)
[2024-04-12 21:41] LABS: Urine Albumin 1+ (Neg - Trace); Urine Bilirubin 1+ (Negative); Urine Character Clear (Clear); Urine Color Yellow; Urine Glucose Negative (Negative); Urine Ketone Trace (Negative); Urine Leukocyte 2+ (Negative); Urine Nitrite Negative (Negative); Urine Occult Blood Trace (Negative); Urine Specific Gravity 1.025 (<1.030); Urine Urobilinogen 1+ (Neg - 1+)
[2024-04-12 21:48] LABS: Urine Urothelial Cell 0-2 /LPF (FEW)
[2024-04-12 21:49] LABS: Urine Bacteria Many (Negative); Urine Red Blood Cell 0-2 /HPF (0-2); Urine White Cell 80-90 /HPF (0-5)
[2024-04-12 21:53] LABS: APTT 35.2 Sec (23.4-35.0); INR 3.57; PT 35.7 Sec (11.4-14.6)
--- NOTE | 2024-04-12 22:00 | PTCARENOTE ---
Received pt at 1930 from ED to ICU 3371. Pt. alert and oriented x3 but drowsy, stating she just wants to sleep. Easily arousable. TAVAREZ but weak. Afib on tele, HR 110s-130s. MANAGEMENT ANALYST aware- monitor for now. Afebrile via rectal probe. Trace LE edema.
Levophed infusing on arrival- titrated to off, MAP >65. BP 100s-110s/60s. Received on 15L midflow + NRB. Difficulty getting pulse ox but when able, >95%. Currently on 13L midflow. Lungs diminished throughout. Round abd, hypoactive bowel sounds. NPO.
Had small smear of BM on arrival. Drummond inserted - draining aziza, cloudy urine. UA sent per order. L heel wound cleansed and dressed w/ wet to dry and dae. R lateral foot with small ulcer - covered with foam. Bicarb gtt @ 150ml/hr infusing. Labs
reviewed with MANAGEMENT ANALYST. Pt. resting calmly.
--- NOTE | 2024-04-12 22:32 | W.PN.SEPSIS ---
Sepsis
Vital Signs
Temp Pulse Resp BP Pulse Ox
99.1 F 155 21 115/86 94
04/12/24 20:10 04/12/24 18:30 04/12/24 18:30 04/12/24 18:30 04/12/24 15:43
Physical Exam
Physical Exam:
A focused exam was performed after fluid resuscitation.
Capillary Refill
Bilateral Upper Extremity:
Eunice Time: Less than 3 sec
Bilateral Lower Extremity:
Eunice Time: Less than 3 sec
Pulse Evaluation
Bilateral Radial:
Pulse Evaluation: Present
Bilateral Dorsalis Pedis:
Pulse Evaluation: Present
[2024-04-13] VITALS (97 sets, daily range): BP systolic 74–131; BP diastolic 48–101; BMI 28.3
[2024-04-13] LABS: Glucose - Point of Care 112 mg/dl (70-99)
[2024-04-13 00:48] LABS: Lactic Acid 3.9 mmol/L (0.7-2.0)
[2024-04-13 00:50] LABS: Troponin I 0.961 ng/ml
--- NOTE | 2024-04-13 01:27 | PTCARENOTE ---
Urine output 10-20ml/hr. Required levophed to be restarted for BP 80s/40s. Repeat BMP ordered and drawn.
[2024-04-13 01:44] LABS: Blood Urea Nitrogen 75 mg/dl (7-17); Calcium 7.9 mg/dl (8.4-10.2); Carbon Dioxide 21 mmol/L (22-30); Chloride 101 mmol/L (98-107); Estimated Creatinine Clearance 16 ml/min; Glucose 201 mg/dl (70-99); Potassium 4.5 mmol/L (3.5-5.1); Sodium 134 mmol/L (135-145); eGFR 19.67
--- NOTE | 2024-04-13 01:54 | VATNOTE ---
04/13 Paged by PCN for additional IV access, new IV placed in left arm. PCN mentioned right upper arm infiltrate from ER. Right upper arm swollen, no redness and does not seem painful to patient.
[2024-04-13] MEDS: SODIUM BICARBONATE 1150 MEQ IV (03:30)
[2024-04-13 04:44] LABS: Venous Blood Gas B.E. -2.3 mmol/L (-4 to +4); Venous Blood Gas HCO3 23.7 mmol/L (22-27); Venous Blood Gas pCO2 45 mmHg (35-48); Venous Blood Gas pH 7.33 (7.32-7.43); Venous Blood Gas pO2 133 mmHg (30-50)
[2024-04-13 04:46] LABS: % Basophils 0.4 % (0-2); % Eosinophils 0.4 % (0-6); % Immature Granulocytes 2.2 % (0-0.5); % Lymphocytes 12.6 % (20.5-51.1); % Monocytes 8.6 % (1.7-9.3); % Neutrophils 75.8 % (42.2-75.2); Absolute Basophils 0.1 10^3/uL (0-0.2); Absolute Eosinophils 0.1 10^3/uL (0-0.7); Absolute Immature Granulocytes 0.4 10^3/uL (0-0.05); Absolute Monocytes 1.4 10^3/uL (0.1-0.6); Absolute Neutrophils 12.2 10^3/uL (1.4-6.5); Hemoglobin 10.4 g/dL (12.0-16.0); Mean Corp Hgb Conc. 33.5 g/dL (33.0-37.0); Mean Corpuscular Hgb 29.3 pg (27.0-31.0); Mean Corpuscular Volume 87.3 fL (81.0-99.0); Mean Platelet Volume 10.8 fL (7.4-10.4); Nucleated Red Blood Cells % 3.2 %; Platelet Count 330 10^3/uL (130-400); Red Blood Cell Count 3.55 10^6/uL (4.20-5.40); Red Cell Dist. Width 15.9 % (11.5-14.5); White Blood Cell Count 16.1 10^3/uL (4.8-10.8)
--- NOTE | 2024-04-13 04:59 | PTCARENOTE ---
Pt reassessed. Urine output remains poor, 0-10 ml/hr. ICE CREAM MACHINE OPERATOR aware- no new orders at this time, await blood work results and monitor. On and off low dose levophed throughout the night to maintain MAP >65. Remains afib, HR 100-120. Weaned O2 to 2L NC.
Monitoring. Pt without complaints.
[2024-04-13 05:02] LABS: INR 3.05; PT 31.5 Sec (11.4-14.6)
[2024-04-13 05:07] LABS: ALT (SGPT) 213 U/L (0-35); AST (SGOT) 369 U/L (14-36); Albumin 3.1 g/dl (3.5-5.0); Alkaline Phosphatase 129 U/L (38-126); Blood Urea Nitrogen 77 mg/dl (7-17); Calcium 7.9 mg/dl (8.4-10.2); Carbon Dioxide 21 mmol/L (22-30); Chloride 100 mmol/L (98-107); Estimated Creatinine Clearance 16 ml/min; Glucose 149 mg/dl (70-99); Magnesium 1.6 mg/dl (1.6-2.3); Phosphorus 6.9 mg/dl (2.5-4.5); Potassium 4.6 mmol/L (3.5-5.1); Sodium 133 mmol/L (135-145); Total Bilirubin 0.9 mg/dl (0.2-1.3); Total Protein 5.8 g/dl (6.3-8.2); eGFR 18.73
[2024-04-13 05:10] LABS: Vancomycin Random 15.3 ug/ml
[2024-04-13 05:12] LABS: Lactic Acid 1.9 mmol/L (0.7-2.0); Troponin I 0.963 ng/ml
[2024-04-13] MEDS: ZOSYN 50 IV (05:54)
[2024-04-13] MEDS: MAGNESIUM SULFATE 102 GRAMS IV (06:19)
--- NOTE | 2024-04-13 07:19 | PTCARENOTE ---
Received patient from clinical rehabilitation aide RN. patient is asleep, arousable, oriented to self, time, place,e she is in an Afib rhythm, mid 100s-120s. on 2mcgs of levophed infusing through patent left peripheral IV. She is on 2L nasal cannula with poor
inspiratory effort, lungs diminished throughout. patient is currently NPO. Drummond draining minimal aziza urine. Wound consulted for foot wounds/ culture pending. Will review orders, bed is in lowest position with bed alarm on. will maintain safe
environment.
[2024-04-13] MEDS: PROTONIX IV 40 MG IV (07:22)
[2024-04-13] MEDS: NSS (PRESERVATIVE FREE) 10 ML IV (07:22)
--- NOTE | 2024-04-13 07:53 | CON.INTV ---
Consultation
Consultation Request
Date/Time Consultation Requested: 04/12/2024 - 1739
Date/Time Consultation Performed: 04/13/2024 - 743
Requesting Provider: Dr. Lucero
Performing Provider: Dr. Berumen
Reason for Consultation: Septic shock
Medical History
-
Chief Complaint: Shortness of breath, pale + lethargic
History of Present Illness:
83-year-old female never smoker with a past medical history of DVT (RLE Dx in 06/2022), history of PE (11/2023) on Eliquis, moderate restrictive lung disease, paroxysmal A-fib, GERD, PAD, herniated disc, valvular heart disease, hypertension,
hyperlipidemia, restless leg syndrome and peptic ulcer disease who presents from home with shortness of breath, altered mental status and appearing pale. Weakness has been ongoing for the last 2-3 weeks with altered mental status occurring over the
last several days. She has been having poor oral intake with confusion and incoherent speech. She has a left heel foot ulcer for the last 1.5 years. No reported shortness of breath, fevers or chills. Initial vitals in the ER showed heart rate of
122, breathing at 16 breaths minute, BP 116/91 and saturating 90% via nonrebreather. She was afebrile to 99.4 �F via rectal thermometer. Initial labs showed leukocytosis to 17.3, Hb 11.2, blood gas showing pH 7.26 with pCO2 39, serum sodium 134,
serum bicarbonate level 16, creatinine 2.6, glucose 58, lactate 4.7, initial troponin 0.698, proBNP >27,000, with abnormal urinalysis with +2 leukocyte esterase and 80�90 urine WBC, COVID antigen is negative. Blood cultures collected, CXR showed no
focal airspace disease, and CT chest, abdomen, pelvis showed small bilateral pleural effusions with small volume ascites with small volume pericholecystic fluid and body wall edema with colonic diverticulosis. Also a 2.5 x 3.8 cm hyperintense
nodule within the left adnexa. Fluid XR showed large soft tissue defect/ulceration along the plantar heel with no juan diego osseous erosions seen or radiographic evidence for active OM. She was given 1 amp of D50, IVF with 1 L total of NS 0.9%, Zosyn
and started on Levophed due to persistent hypotension wih SBP in 80s. She was admitted to the ICU for further care and critical care services consulted for additional management/recommendations.
Pt seen and evaluated this AM. Remains on levophed at 3mcg/min. On 2L/min with SpO2 97%. HR 132 and BP 122/68. She remains responsive but then quickly falls back asleep. Currently on bicarb drip at 150cc/hr. Unable to obtain ROS given patient's
acute clinical status.
Of note, patient follows with us in the [facility] office with Dr. Painter -last office visit on 03/18/2024. She follows for a history of PE with pulmonary hypertension, and has a hx of valvular heart disease with MR/AI/. Her last 6 MWT from 12/09/2023
showed a guero SpO2 of 98% and she did not need home O2. She does have abnormal rheumatological studies with abnormal double-stranded DNA, rheumatoid agglutinin, ESR + CRP. Scleroderma antibody was negative and she was advised to follow-up with
rheumatology. She does have nasal congestion in the morning and was advised to use saline nasal spray and Flonase if needed. She denied shortness of breath or chest pain. She does follow with Dr. Che given her history of DVT/PE. Her last
full PFT was in November 2023 showing a moderate restrictive lung defect, with a very severe gas exchange capacity defect (DLco: 8%, DLco/VA: 19%). Next office visit will be in May 2024.
PMHx: Peptic ulcer disease, hypertension, hyperlipidemia, IBS, neuropathy, RLS, arthritis, DVT (RLE diagnosed in June 2022), history of PE (November 2023) on Eliquis, herniated disc, valvular heart disease with mitral regurgitation + aortic
insufficiency, paroxysmal A-fib, GERD, PAD, Braxton's lymphedema, MGUS, osteoporosis
PSHx: Left knee replacement, right hip replacement, hysterectomy,
Past Medical History
Past Medical History: Other (Above as per HPI)
Past Surgical History: Other (Above as per HPI)
Social History
Tobacco: Non-smoker (Never smoker)
Alcohol: None
Drug: None
Personal:
Living: With Family
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
Family History
Family History: CAD (Father + mother + sibling) and Other (Father + mother: History of CVA)
Allergies / Home Medications
Allergies
Allergy/AdvReac Type Severity Reaction Status Date / Time
Sulfa (Sulfonamide Allergy Rash-1961 Verified 04/12/24 15:39
Antibiotics)
sulfamethoxazole Allergy Rash-1960 Verified 04/12/24 15:39
trimethoprim Allergy Rash-1961 Verified 04/12/24 15:39
Home Medications
�Medication �Instructions �Recorded �Confirmed �Last Taken �Type
atenolol 50 mg tablet 50 mg PO DAILY Blood pressure 08/01/16 04/12/24 04/11/24 History
atorvastatin 20 mg tablet 20 mg PO QPM High cholesterol 08/01/16 04/12/24 10/22/22 History
acetaminophen 500 mg tablet 1,000 mg PO TIDPRN PRN mild pain 06/01/22 04/12/24 04/12/24 History
(Tylenol Extra Strength)
lisinopril 40 mg tablet 40 mg PO DAILY Blood pressure 07/24/22 04/12/24 04/11/24 History
pregabalin 100 mg capsule 100 mg PO HS Pain 07/24/22 04/12/24 04/11/24 History
duloxetine 60 mg capsule,delayed 60 mg PO DAILY Pain 09/30/22 04/12/24 04/11/24 History
release
apixaban 5 mg tablet (Eliquis) 5 mg PO BID Blood clot 04/12/24 04/12/24 04/11/24 History
prevention/tx
furosemide 20 mg tablet (Lasix) 20 mg PO BID 04/12/24 04/12/24 Unknown History
lisinopril 20 mg tablet 20 mg PO QPM 04/12/24 04/12/24 04/11/24 History
Review of Systems
-
Unable to Obtain full review of systems at this time due to: Acuity
Vitals / Labs / Diagnostic Testing
Vital Signs
Temp Pulse Resp BP Pulse Ox
97.7 F 119 18 106/93 98
04/13/24 07:24 04/13/24 07:15 04/13/24 07:15 04/13/24 07:15 04/13/24 07:29
Lab Data
04/13/24 04:32
04/13/24 04:32
Laboratory Results
04/12/24 04/13/24
21:25 04:32
PT 35.7 H 31.5 H
INR 3.57 3.05
APTT 35.2 H 40.0 H
Diagnostic Testing:
Physical Exam
-
HEENT: Normocephalic and Anicteric
Cardiovascular: Irregular Rhythm (Irregularly irregular), Peripheral Edema (negative) and Other (Tachycardic)
Respiratory: Wheeze (negative), Rales (negative) and Rhonchi (negative)
GI: Soft, Non Distended, Non Tender and Normal Bowel Sounds
Neurology: Other (Lethargic, awakens to verbal + tactile stimuli but easily falls right back asleep)
Skin: Warm, Dry and Other (Left heel golf ball sized ulcer without purulence or exsanguination seen; right fifth metatarsal small ulcer/wound without active exsanguination or purulence seen; neither ulcers are tender to palpation)
General: Respiratory Distress (negative), Chills (negative) and Sweats (negative)
Assessment
-
Assessment: 83-year-old female never smoker with a past medical history of DVT (RLE Dx in 06/2022), history of PE (11/2023) on Eliquis, moderate restrictive lung disease, paroxysmal A-fib, GERD, PAD, herniated disc, valvular heart disease,
hypertension, hyperlipidemia, restless leg syndrome and peptic ulcer disease who presents from home with shortness of breath, altered mental status and appearing pale. Weakness has been ongoing for the last 2-3 weeks with altered mental status
occurring over the last several days. She has been having poor oral intake with confusion and incoherent speech. She has a left heel foot ulcer for the last 1.5 years. No reported shortness of breath, fevers or chills. Initial vitals in the ER
showed heart rate of 122, breathing at 16 breaths minute, BP 116/91 and saturating 90% via nonrebreather. She was afebrile to 99.4 �F via rectal thermometer. Initial labs showed leukocytosis to 17.3, Hb 11.2, blood gas showing pH 7.26 with pCO2
39, serum sodium 134, serum bicarbonate level 16, creatinine 2.6, glucose 58, lactate 4.7, initial troponin 0.698, proBNP >27,000, with abnormal urinalysis with +2 leukocyte esterase and 80�90 urine WBC, COVID antigen is negative. Blood cultures
collected, CXR showed no focal airspace disease, and CT chest, abdomen, pelvis showed small bilateral pleural effusions with small volume ascites with small volume pericholecystic fluid and body wall edema with colonic diverticulosis. Also a 2.5 x
3.8 cm hyperintense nodule within the left adnexa. Fluid XR showed large soft tissue defect/ulceration along the plantar heel with no juan diego osseous erosions seen or radiographic evidence for active OM. She was given 1 amp of D50, IVF with 1 L
total of NS 0.9%, Zosyn and started on Levophed due to persistent hypotension wih SBP in 80s. She was admitted to the ICU for further care and critical care services consulted for additional management/recommendations.
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
regurgitation + aortic insufficiency, paroxysmal A-fib, GERD, PAD, Braxton's lymphedema, MGUS, osteoporosis
Impression:
#Septic shock likely due to UTI, however left heel ulcer may be contributing with possible osteomyelitis
#Left mental status likely due to toxic�metabolic encephalopathy related to JOYCE + sepsis
#Atrial fibrillation with RVR
#JOYCE (baseline Cr approximately 0.8�1)
#Hypoglycemia
#Hyponatremia likely due to reduced PO intake
#Transaminitis with pericholecystic fluid seen on CT - suspicious for cholecystitis
#2.5 x 3.8 cm mildly hyperintense nodule within the left adnexa, differential including lymph node versus left adnexal lesion
#Anemia (baseline Hb 10�11.5g/dL)
#Elevated INR to likely due to reduced PO intake in the setting of Eliquis
#Elevated proBNP of >27,000
#Elevated troponin likely due to demand ischemia with type II OR
#Moderate restrictive lung defect (post BD FVC: 57% predicted/1.31 L; T%, VC: 70%)
#History of RLE DVT (Dx 06/2022) + history of PE (Dx 11/2023) on Eliquis
#Valvular heart disease with moderate MR, mild , moderate AI, moderate TR, enlarged RV with normal RV systolic function � per TTE from September 2023
#Severe pulmonary hypertension with PASP 69 mmHg assuming RAP 3 mmHg with stage II diastolic dysfunction - per TTE from September 2023
Plan:
- Need to get HR under control --> start amio gtt with bolus and infusion
- Obtain PICC
- Wean down levophed as tolerated, keeping MAP>65
- If unable to wean off levophed and pt remains NPO, will consider DHT and start midodrine
- Check left heel wound Cx, consult podiatry for possible OM
- Continue broad spectrum ABx --> currently on cefepime; I agree with adding IV flagyl
- Wound care to left heel
- If pt remains NPO by tomorrow, start TF via DHT assuming levophed requirements are <10mcg/min
- If mentation does not improve by tomorrow then we will consider CT head
- Continue to trend troponin until begins to downtrend
- Renally dose all meds and ABx
- Nephrology consulted --> recs appreciated
- trend sCr and UOP
- Trend LFTs, serum Na and serum HCO3
- Check pelvic ultrasound to further evaluate left adnexal 2.5 x 3.8 cm nodule
- Check RUQ US to rule out cholecystitis
- Maintain SpO2 >90-94%
- prn nebulized bronchodilators - patient currently not bronchospastic
- Despite elevated proBNP, there is no evidence of volume overload per CXR or clinically, although there are small bilateral pleural effusions seen on CT chest from 04/12/2024; hold off on diuresis for now; proBNP may be elevated given history of
severe pulmonary hypertension
- Consider repeat TTE
- Replete electrolytes with K>4, Mg>2
- Maintain euglycemia with goal BG 140-180; avoid hypoglycemia
- Trend Hb and transfuse if needed to keep Hb>7g/dL, plt>20k
- DVT ppx: given elevated INR, hold Eliquis for now; trend anti-Xa levels and INR
I discussed the patient's clinical status with the , Anthony, and answered all his questions. Pt remains full code.
Critical care statement: A total of 44 minutes of critical care time was provided for this patient today. This includes management of unstable vital signs, evaluation of the patient at bedside, reviewing the patient's pertinent medical records
including radiographs, microbiology, laboratory evaluations, and discussion with primary team, consultants, pharmacy, nutrition, physical therapy, case management, charge nurse, critical care nursing, and respiratory therapy.
Data:
CT chest, abdomen, pelvis without contrast 04/12/2024:
1. There is four-chamber cardiomegaly with small right greater than left bilateral pleural effusions with adjacent atelectasis.
2. Small volume ascites including small volume pericholecystic fluid, likely sequelae of left heart disease. Additional generalized body wall edema.
3. Colonic diverticulosis without evidence of acute diverticulitis.
4. 2.5 x 3.8 cm mildly hyperintense nodule within the left adnexa which may represent lymph node versus possible left adnexal lesion. Consider dedicated pelvic ultrasound for further evaluation.
5. Chronic L1 compression deformity with prior L3-L5 spondylolisthesis and posterior fusion.
Left foot XR 04/12/2024:
Large soft tissue defect/ulceration along the plantar heel. No juan diego osseous erosions identified. No convincing radiographic evidence for active osteomyelitis. MRI would be of greater sensitivity.
Diffuse demineralization. No acute fracture or dislocation. Scattered mild to moderate osteoarthritic changes. Moderate plantar calcaneal enthesopathy
Transthoracic echocardiogram 10/24/2023:
Normal left ventricular systolic function. Left ventricular ejection fraction
is 60-65%.
Stage II diastolic dysfunction suggestive of abnormal relaxation and increased
filling pressures.
Moderate mitral regurgitation.
Mild aortic stenosis. Peak/mean gradients across the aortic valve are 28/15
mmHg respectively. Using LVOT diameter 2.0cm, calculated DAMON is 1.9cm2.
Moderate aortic regurgitation.
Enlarged right ventricular size. Normal right ventricular systolic function.
Moderate tricuspid regurgitation. Severely elevated PASP. Estimated pulmonary
artery pressure of 69 mmHg assuming a right atrial pressure of 3 mmHg.
Compared to 06/25/19: moderate MR is stable. Aortic sclerosis has progressed
to mild . Mild AR has progressed to moderate. RV is now dilated. TR has
progressed from from mild to moderate, and PASP has increased from 30 mmHg to
69 mmHg,
--- NOTE | 2024-04-13 08:03 | PHA.VAN.FU ---
Vancomycin Assessment / Plan
- Assessment
Renal Function: SCR Increasing
WBC's are: Trending Down
In the past 24 hrs, patient has been: Afebrile
Concomitant Antimicrobials: Piperacillin/Tazobactam
- Assessment - Therapeutic Drug Monitoring
Random Level: 04/13 = 15.3 ~7:30 Hrs after split loading dose of 1500mg
- Dosing Plan
Dosing by Level: Re-dose today (750mg)
- Monitoring Plan
Random Level: 04/14/24 am labs
- Follow Up
Pharmacy will continue to follow.
Vancomycin Follow UP
- -
Patient Age: 83
Patient Sex: Female
Vancomycin Day #: 2
Indication: Bacteremia
Requesting Provider: Dr. Lucero
Pertinent Antimicrobial Allergies:
sulfonamide antibiotics - rash in 1961
Height / Weight:
Height 5 ft 2 in
Actual Weight 70.2 kg
- Vital Signs / Lab Results
Temp Pulse Resp BP Pulse Ox
97.7 F 119 18 106/93 98
04/13/24 07:24 04/13/24 07:15 04/13/24 07:15 04/13/24 07:15 04/13/24 07:29
Lab Results - Hematology
04/12/24 04/13/24
15:11 04:32
WBC 17.3 H 16.1 H
Lab Results - Chemistry
04/12/24 04/12/24 04/12/24
15:11 15:46 19:52
BUN Cancelled 73 H 72 H
Creatinine Cancelled 2.6 H 2.6 H
Estimated Creat Clear Cancelled 15 15
Albumin Cancelled Cancelled
04/13/24 04/13/24
01:18 04:32
BUN 75 H 77 H
Creatinine 2.4 H 2.5 H
Estimated Creat Clear 16 16
Albumin 3.1 L
04/12/24 04/12/24 04/13/24
15:11 19:51 00:16
Lactic Acid 4.7 H* 5.3 H* 3.9 H
04/13/24 04/13/24
04:32 07:30
Lactic Acid 1.9 Cancelled
Lab Results - Urine
04/12/24
21:35
Urine Nitrite (Reflex) Negative
Leukocyte Esterase Rfl 2+ A
Ur Squamous Epith Cells 11-15
Therapeutic Drug Monitoring
Random Vancomycin 15.3 ug/ml 04/13/24 04:32
--- NOTE | 2024-04-13 08:13 | W.PN.HOSP.TC ---
Today's Communication/Plan
-
IV antibiotics. Pressors.
Assessment / Plan
Assessment / Plan
Physical exam:
General: Acutely ill. Toxic appearance
HEENT: Normocephalic, Atraumatic and Dry Mucous Membranes
Respiratory: Decreased breath sounds bilateral; Clear to Auscultation; Negative Wheezes, Rales or Rhonchi
Cardiac: Irregular rate and rhythm, tachycardic, and S1/S2, systolic murmur
GI: Soft, Nontender and Nondistended
Musculoskeletal: Left heel wound with some erythema, no discharge noticed. No Clubbing, No Cyanosis and No Edema
Neuro: Lethargic, does follow simple commands and answer questions appropriately but goes back to sleep. No focality on her exam.
A/P:
Septic shock likely due to UTI:
Change antibiotics to IV cefepime and metronidazole (keep anaerobic coverage until other sources ruled out)
IV fluid
Continue pressor, Levophed
Blueprint Trimmer consulted irrigator gravity flow today
Follow-up cultures
Discussed with RN
Acute hypoxic respiratory insufficiency:
Continue oxygen supplementation
Atrial fibrillation with rapid ventricular response:
Worsening due to sepsis
Start IV Lopressor as needed
Also consider starting amiodarone drip
Anticoagulation either heparin drip or Eliquis if no procedures planned
Acute kidney injury:
Creatinine 2.5 today. Remains oliguric
Nephrology consult
Drummond catheter for critical illness and acute kidney injury
Avoid nephrotoxic
Hyponatremia:
Monitor sodium closely
Today 133
Elevated troponin:
Elevated troponin likely due to non-ischemic myocardial injury due to sepsis
Cannot rule out ACS yet
Consider heparin drip if cardiac enzymes considerably worsens
Trend cardiac enzymes
Cardiac monitoring
Anemia and pancytopenia in the past:
Monitor hemoglobin closely
Family tells me that is in the works of bone marrow biopsy for suspicions of diagnosis of non-Hodgkin lymphoma
Acute on chronic diastolic congestive heart failure:
Will diurese after hemodynamic improves
Reviewed latest echocardiogram in our system
BNP over 27,000
Septic and toxic metabolic encephalopathy:
Etiology sepsis but also hypoglycemia contributing
Provide D50 and D5 with normal saline
Monitor mental status and glucose closely
Metabolic acidosis:
IV fluids
On bicarb drip
Continue to monitor
Left foot wound:
Antibiotics
Cultures
Podiatry consult
DVT prophylaxis:
SCDs
Will resume Eliquis when feasible
CODE STATUS:
Full code
Total Critical Care Time 35 minutes. I was immediately available to the patient and staff. I personally examined, reviewed labs, diagnostic images/reports, interpretations, treatment plans, discussed patient care with other providers and family
or caregivers (if patient is unable to make decisions), entered orders as appropriate and documented the medical record.
Anticipated Discharge: > 48 hours
Subjective/Interval History
-
Date of Service: April 13, 2024
Patient remains critically ill but showing some improvement. On 2 L of oxygen. Less pressor requirements. Afebrile
Objective Data
-
Labs:
Laboratory Results
04/12/24 04/12/24 04/13/24
19:52 21:25 01:18
WBC
Hgb
Hct
Plt Count
PT 35.7 H
INR 3.57
APTT 35.2 H
Sodium 135 134 L
Potassium 5.6 H 4.5
Chloride 104 101
Carbon Dioxide 10 L* 21 L
BUN 72 H 75 H
Creatinine 2.6 H 2.4 H
Glucose 117 H 201 H
Calcium 8.9 7.9 L
Total Bilirubin
AST
ALT
Alkaline Phosphatase
04/13/24
04:32
WBC 16.1 H
Hgb 10.4 L
Hct 31.0 L
Plt Count 330
PT 31.5 H
INR 3.05
APTT 40.0 H
Sodium 133 L
Potassium 4.6
Chloride 100
Carbon Dioxide 21 L
BUN 77 H
Creatinine 2.5 H
Glucose 149 H
Calcium 7.9 L
Total Bilirubin 0.9
AST 369 H
ALT 213 H
Alkaline Phosphatase 129 H
Vital Signs:
Vital Signs
Temp Pulse Resp BP Pulse Ox
97.7 F 119 18 106/93 98
04/13/24 07:24 04/13/24 07:15 04/13/24 07:15 04/13/24 07:15 04/13/24 07:29
I&O
04/12/24 04/13/24 04/14/24
06:59 06:59 06:59
Intake Total 2798.8 / 2956.3 315.0 / 315.0
Output Total 170 / 185 25 / 25
Balance 2628.8 / 2771.3 290.0 / 290.0
[2024-04-13] MEDS: STERILE WATER FOR INJECTION 10 ML IV (09:23)
[2024-04-13] MEDS: MAXIPIME 1000 MG IV (09:23)
[2024-04-13] MEDS: SODIUM BICARBONATE IV (11:00)
--- NOTE | 2024-04-13 11:05 | WOUNDNOTE ---
[facility] RN note: Patient admitted with sepsis
See H&P for complete history.
PMH: A-fib, UTI, hypoglycemia, chronic left heel wound
Wound Location and type/assessment: Patient admitted with chronic left heel wound. +pulses in left foot, foot warm, pink. Patient reports having the wound for over 1 year. She follows at [facility] and has orthotic shoe for
off-loading. She describes using Dakins and Santyl at home and has VN. The wound is dry with 80% eschar and 20% pink tissue. No odor noted and wound is dry. Cultures obtained per order. Right heel intact and blanchable.
Appetite: Reports 'ok'
Pressure redistribution devices in place: Centrella Max Air
Plan: Wound was cleaned and packed with saline moistened gauze after assessment. Will continue with Dakins and Santyl. A podiatry consult has also been ordered. EVELIN Sim given update. Orders confirmed. Will follow as needed.
[2024-04-13 11:36] LABS: Glucose - Point of Care 92 mg/dl (70-99)
[2024-04-13] MEDS: FLAGYL 500 MG 100 IV ×2 (12:36→19:36)
--- NOTE | 2024-04-13 13:16 | WOUNDNOTE ---
[facility] RN NOTE: Secure Start Kit request successfully faxed.
[2024-04-13] MEDS: CORDARONE 103 MG IV (13:24)
[2024-04-13] MEDS: CORDARONE 518 MG IV (13:24)
[2024-04-13 13:38] LABS: Troponin I 0.606 ng/ml
--- NOTE | 2024-04-13 13:38 | PTCARENOTE ---
Patient to transfer to IVU. Troponin level coming down, PTT was therapeutic. repeat PTT at 1800.
--- NOTE | 2024-04-13 13:39 | PTCARENOTE ---
Patient remains on levo. Will start AMIO, PICC line placed RUE.
--- NOTE | 2024-04-13 13:44 | CM ---
CM following re: discharge planning.
Reviewed pt's chart, met with pt. Pt's and their son at bedside.
Pt is an 83 year old female, admitted with primary dx of Septic shock wdue to UTI.
Pt reports she lives with in a 2SH, 1 steps to enter, has 3 supportive children. Pt reports she mostly getting around on a wheelchair, has a walker and a cane. per , pt was before at [facility] and he feels that pt will need to go
to a SNF to get better and [facility] requested.
PT and OT will evaluate the pt when clinically appropriate to determine a level of care at discharge. CM will make a referral to [facility] after PT/OT evaluations.
PCP: Jay Wilhelm
Pharmacy: [facility]
D/C plan: most [facility]
CM will follow with discharge plan updates as hospitalization progresses
[2024-04-13 14:42] LABS: Heparin Anti-Xa LMW (LMWH) 2.89 IU/mL (0.20-0.50)
--- NOTE | 2024-04-13 15:30 | W.CON.NEPH ---
Consultation
-
Date/Time Consultation Requested: 04/13/2024 17:40PM
Date/Time Consultation Performed: 04/13/2024 3:30PM
Requesting Provider: Ridge Lucero
Performing Provider: Madie Scherer
Reason for Consultation: JOYCE
Medical History
-
Chief Complaint: JOYCE
History of Present Illness:
Ms. Berry is an 83YOF with PMH of HTN, DLD, Afib, plantar foot ulcer, PE/DVT, UTIs who presented to the hospital with AMS and generalized weakness. The patient was not eating and drinking well for about 2 weeks prior to admission. The patient is
very lethargic and unable to participate in my interview.
On eliquis for DVT in 2021. She is on lisinopril 40mg for BP as well as atenolol. She is noted to be on duloxetine as well for pain.
She was found to have an elevated WBC count to 17K and a lactate to 4.7 on admission. She was given fluids and initiated on pressors. She is thought to have sepsis from UTI. Nephrology is consulted for JOYCE. Her baseline Cr 1 month ago was 1, it is
now elevated to 2.5.
Past Medical History
On eliquis for Hx of DVT R LE discovered 06/2022 while hospitalized for cellulitis LLE. Also history of chronic wound left lower extremity. History of atrial fibrillation in the past.
Past Medical History: HTN, Hypercholesterolemia and Other
Past Surgical History: Orthopedic (Left TKA 08/29/16)
Social History
Tobacco: Non-Smoker
Alcohol: None
Drug: None
Personal:
Living: With Family
Family History
Family History: Not Pertinent
Allergies / Home Medications
Allergy/AdvReac Type Severity Reaction Status Date / Time
Sulfa (Sulfonamide Allergy Rash-1961 Verified 04/12/24 15:39
Antibiotics)
sulfamethoxazole Allergy Rash-1961 Verified 04/12/24 15:39
trimethoprim Allergy Rash-1962 Verified 04/12/24 15:39
�Medication �Instructions �Recorded �Confirmed �Type
atenolol 50 mg tablet 50 mg PO DAILY Blood pressure 08/01/16 04/12/24 History
atorvastatin 20 mg tablet 20 mg PO QPM High cholesterol 08/01/16 04/12/24 History
acetaminophen 500 mg tablet 1,000 mg PO TIDPRN PRN mild pain 06/01/22 04/12/24 History
(Tylenol Extra Strength)
lisinopril 40 mg tablet 40 mg PO DAILY Blood pressure 07/24/22 04/12/24 History
pregabalin 100 mg capsule 100 mg PO HS Pain 07/24/22 04/12/24 History
duloxetine 60 mg capsule,delayed 60 mg PO DAILY Pain 09/30/22 04/12/24 History
release
apixaban 5 mg tablet (Eliquis) 5 mg PO BID Blood clot 04/12/24 04/12/24 History
prevention/tx
furosemide 20 mg tablet (Lasix) 20 mg PO BID Fluid 04/12/24 04/12/24 History
Retention/Swelling
lisinopril 20 mg tablet 20 mg PO QPM Blood Pressure 04/12/24 04/12/24 History
Review of Systems
-
Unable to obtain full review of systems at this time due to: Acuity
History Source: Patient
All other systems: Negative unless noted
Physical Exam
Vital Signs
Vital Signs
Temp Pulse Resp BP Pulse Ox
97.9 F 100 16 86/58 95
04/13/24 11:14 04/13/24 14:45 04/13/24 14:45 04/13/24 14:45 04/13/24 14:45
Lab Results
WBC 16.1 10^3/uL (4.8-10.8) H 04/13/24 04:32
RBC 3.55 10^6/uL (4.20-5.40) L 04/13/24 04:32
Hgb 10.4 g/dL (12.0-16.0) L 04/13/24 04:32
Hct 31.0 % (37.0-47.0) L 04/13/24 04:32
Plt Count 330 10^3/uL (130-400) 04/13/24 04:32
Sodium 133 mmol/L (135-145) L 04/13/24 04:32
Potassium 4.6 mmol/L (3.5-5.1) 04/13/24 04:32
Chloride 100 mmol/L (98-107) 04/13/24 04:32
Carbon Dioxide 21 mmol/L (22-30) L 04/13/24 04:32
BUN 77 mg/dl (7-17) H 04/13/24 04:32
Creatinine 2.5 mg/dL (0.6-1.0) H 04/13/24 04:32
eGFR 18.73 04/13/24 04:32
Glucose 149 mg/dl (70-99) H 04/13/24 04:32
Calcium 7.9 mg/dl (8.4-10.2) L 04/13/24 04:32
Phosphorus 6.9 mg/dl (2.5-4.5) H 04/13/24 04:32
Hiv-Q-Dkhziffotxg Pept > 59010 pg/ml 04/12/24 15:11
Albumin 3.1 g/dl (3.5-5.0) L 04/13/24 04:32
Physical Exam
General: Awake and Other (not very alert and not oriented. toxic appearing)
HEENT: Anicteric, Conjunctivae Clear, Dentition Intact, Facial Symmetry, Trachea Midline and No JVD
Respiratory: Clear, Normal Excursion and Nonlabored Respirations
Cardiac: Murmur (systolic murmur), No Edema and Other (tacycardic, irregular)
Breast: Deferred by me
Abdomen: Soft, Nontender and Nondistended
Rectal: Deferred by Provider
Genito-urinary: No Costovertebral Tender
Musculoskeletal: No Clubbing, No Cyanosis and No Edema
Skin: No Rash, Warm, Dry, Normal Turgor and No Bruising
Neuro: Other (sleepy and unable to participate in neuro exam)
Hematologic/Lymphatic: No Cervical Lymphadenopathy
Psych: Other (unable to answer questions as she is falling aslpee)
Data Reviewed
-
Radiology: Image Personally Visualized and interpreted (clear CXR)
CT Scan: Report Reviewed by me (kidneys within normal limits)
Labs: Labs Reviewed by me and Discussed with Physician
Old Records: Reviewed
Assessment/Plan
-
Assessment:
Septic shock 2/2 to UTI
Afib
JOYCE
Elevated trop
Plan:
- JOYCE likely in the setting of ATN (especially with documented hypotension)
- baseline cr around 1, now elevated to 2.5
- she appears to be in the oliguric phase of ATN
- continue to trend Cr and UOP
- maintain MAP >65
- agree with broad spectrum abx, however, monitor carefully for cefepime induced neurotoxicity especially with JOYCE and AMS. i will adjust to 1g q 24h
I believe that she appears to be plateuing and remain hopeful for some improvement in kidney function over the next 24-48 hours. We will follow along.
--- NOTE | 2024-04-13 17:14 | CON.MD ---
Consultation - Medical
-
Date/Time Consultation Requested: 04/13/2024 1103AM
Date/Time Consultation Performed: 04/13/2024 1600
Requesting Provider: Dr. Indio Berumen
Performing Provider: Dr Jessica Frazier
Reason for Consultation: Chronic wound left heel/sepsis
Medical History
-
Chief Complaint: sepsis and chronic left heel wound
History of Present Illness:
Sussy Berry is an 83yo F with PMH of HTN, Afib, left heel ulcer(1st xray doc in 06/2022), PE/DVT, UTIs who presented to the hospital with AMS and generalized weakness. Per spouse, Anthony,the patient was not eating or drinking well for about 2
weeks prior to admission. The patient is very lethargic and unable to answer questions, however I did speak to her and performed a lengthy review of her medical rosalinda
She was found to have an elevated WBC count to 17K and a lactate to 4.7 on admission. She was given fluids and initiated on pressors. She is thought to have sepsis from UTI and possibly the foot as source of sepsis
Past Medical History
On eliquis for Hx of DVT R LE discovered 06/2022 while hospitalized for cellulitis LLE. Also history of chronic wound left heel, atrial fibrillation
Past Medical History: HTN, Hypercholesterolemia and Other
Past Surgical History: Orthopedic (Left TKA 08/29/16), debridements left heel
Social History
Tobacco: Non-Smoker
Alcohol: None
Drug: None
Personal:
Living: With Family
Family History
Family History: Not Pertinent
Allergies / Home Medications
Allergy/AdvReac Type Severity Reaction Status Date / Time
Sulfa (Sulfonamide Allergy Rash-1961 Verified 04/12/24 15:39
Antibiotics)
sulfamethoxazole Allergy Rash-1961 Verified 04/12/24 15:39
trimethoprim Allergy Rash-1961 Verified 04/12/24 15:39
�Medication �Instructions �Recorded �Confirmed �Type
atenolol 50 mg tablet 50 mg PO DAILY Blood pressure 08/01/16 04/12/24 History
atorvastatin 20 mg tablet 20 mg PO QPM High cholesterol 08/01/16 04/12/24 History
acetaminophen 500 mg tablet 1,000 mg PO TIDPRN PRN mild pain 06/01/22 04/12/24 History
(Tylenol Extra Strength)
lisinopril 40 mg tablet 40 mg PO DAILY Blood pressure 07/24/22 04/12/24 History
pregabalin 100 mg capsule 100 mg PO HS Pain 07/24/22 04/12/24 History
duloxetine 60 mg capsule,delayed 60 mg PO DAILY Pain 09/30/22 04/12/24 History
release
apixaban 5 mg tablet (Eliquis) 5 mg PO BID Blood clot 04/12/24 04/12/24 History
prevention/tx
furosemide 20 mg tablet (Lasix) 20 mg PO BID Fluid 04/12/24 04/12/24 History
Retention/Swelling
lisinopril 20 mg tablet 20 mg PO QPM Blood Pressure 04/12/24 04/12/24 History
Review of Systems
-
Unable to obtain full review of systems at this time due to lethargy
Physical Exam
Vital Signs
Vital Signs
Temp Pulse Resp BP Pulse Ox
97.9 F 100 16 86/58 95
04/13/24 11:14 04/13/24 14:45 04/13/24 14:45 04/13/24 14:45 04/13/24 14:45
Lab Results
WBC 16.1 10^3/uL (4.8-10.8) H 04/13/24 04:32
RBC 3.55 10^6/uL (4.20-5.40) L 04/13/24 04:32
Hgb 10.4 g/dL (12.0-16.0) L 04/13/24 04:32
Hct 31.0 % (37.0-47.0) L 08/19/24 04:32
Plt Count 330 10^3/uL (130-400) 04/13/24 04:32
Sodium 133 mmol/L (135-145) L 04/13/24 04:32
Potassium 4.6 mmol/L (3.5-5.1) 04/13/24 04:32
Chloride 100 mmol/L (98-107) 04/13/24 04:32
Carbon Dioxide 21 mmol/L (22-30) L 04/13/24 04:32
BUN 77 mg/dl (7-17) H 04/13/24 04:32
Creatinine 2.5 mg/dL (0.6-1.0) H 04/13/24 04:32
eGFR 18.73 04/13/24 04:32
Glucose 149 mg/dl (70-99) H 04/13/24 04:32
Calcium 7.9 mg/dl (8.4-10.2) L 04/13/24 04:32
Phosphorus 6.9 mg/dl (2.5-4.5) H 04/13/24 04:32
Vqp-L-Gvvnffwzzqx Pept > 49905 pg/ml 04/12/24 15:11
Albumin 3.1 g/dl (3.5-5.0) L 04/13/24 04:32
Physical Exam:
General: lethargic, but in NAD, appears comfortable
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
Left heel wound with necrosis and malodor, minimal granulation just over bone + scant purulence noted
Wound measures:Approx 2.5 cm long x 4 cm wide x 1 cm deep mixed fibronecrotic wound bed 80% and 20% granulation through the dermis,sq, deep fascia to just over bone no undermining is noted
Right 5th met head wound with bone palpable, 100% fibrotic with malodor and serous drainage, no cellulitis right foot
Diminished protective sensation, but not absent.
Data Reviewed:
Radiology: Image left heel Personally reviewed and compared to previous images 06/2022, arterial studies performed 04/09/2023 appear to be WNL (NOMI 0.95 B/L wwith multiphasic waveforms) while TBI 0.4
Labs: Labs Reviewed
Old Records: Reviewed
Assessment/Plan:
1-PAD- recommend arterial u/s with follow up NOMI/TBI and vascular consult when able
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
think there is any abscess present requiring emergent surgical intervention
3-Peripheral Neuropathy (by history, per spouse, unknown etiology) and ambulatory dysfunction
4-Other Co-morbidities impairing healing: poor nutrition (albumin 3.1/TPtn 5.8), anemia (hgb 10.4)
5-Afib-h/o DVT and PE
Stage 4 left heel Wound has been present 06/2022 and has been actively treated at wound care centers here and now at [facility](Dr Franco) right foot wound more recent per family, but unsure of initial presentation.
-
[2024-04-13] MEDS: LEVOPHED 250 IV (18:41)
--- NOTE | 2024-04-13 19:30 | PTCARENOTE ---
Resumed care of pt this evening. Received pt on amio gtt infusing at 0.5mg/min and a levo gtt infusing at 2 mcg/min via rt picc line. Pt is very drowsy but is arousable to verbal and tactile stimuli. Pt is A&Ox2 forgetful of time. Pt has generalized
weakness. Pt is in A-fib on tele monitor, has +1 GA, and +2 edema B/L lower extremities. Pedal pulses are weak but palpable. Pt on 2L of O2 and is satting at 96% pulse ox. On auscultation pt lungs sound coarse and diminished TO. Pts abdomen is
round, obese, and has active BS. Pt has erazo in place and is voiding aziza colored urine. Wound dressings on left heel and right foot are intact.
[2024-04-14] VITALS (55 sets, daily range): BP systolic 89–117; BP diastolic 52–80; BMI 29.1
--- NOTE | 2024-04-14 00:45 | PTCARENOTE ---
Levo gtt turned off per protocol.
[2024-04-14] MEDS: FLAGYL 500 MG 100 IV ×3 (04:26→19:53)
--- NOTE | 2024-04-14 04:30 | PTCARENOTE ---
Pt's mentation/alertness improving. Pt speaking more clearly and is able to keep eyes open. Pt resting comfortably at this time.
[2024-04-14 04:38] LABS: % Basophils 0.4 % (0-2); % Eosinophils 0.7 % (0-6); % Immature Granulocytes 1.5 % (0-0.5); % Lymphocytes 9.7 % (20.5-51.1); % Monocytes 9.2 % (1.7-9.3); % Neutrophils 78.5 % (42.2-75.2); Absolute Basophils 0.1 10^3/uL (0-0.2); Absolute Eosinophils 0.1 10^3/uL (0-0.7); Absolute Immature Granulocytes 0.2 10^3/uL (0-0.05); Absolute Lymphocytes 1.2 10^3/uL (1.2-3.4); Absolute Monocytes 1.2 10^3/uL (0.1-0.6); Hematocrit 30.6 % (37.0-47.0); Hemoglobin 10.1 g/dL (12.0-16.0); Mean Corpuscular Hgb 29.2 pg (27.0-31.0); Mean Corpuscular Volume 88.4 fL (81.0-99.0); Nucleated Red Blood Cells % 1.2 %; Platelet Count 282 10^3/uL (130-400); Red Blood Cell Count 3.46 10^6/uL (4.20-5.40); Red Cell Dist. Width 16.3 % (11.5-14.5); White Blood Cell Count 12.7 10^3/uL (4.8-10.8)
[2024-04-14 04:58] LABS: Blood Urea Nitrogen 70 mg/dl (7-17); Calcium 8.4 mg/dl (8.4-10.2); Carbon Dioxide 27 mmol/L (22-30); Chloride 95 mmol/L (98-107); Estimated Creatinine Clearance 25 ml/min; Glucose 133 mg/dl (70-99); Magnesium 1.9 mg/dl (1.6-2.3); Phosphorus 4.4 mg/dl (2.5-4.5); Potassium 4.1 mmol/L (3.5-5.1); Sodium 130 mmol/L (135-145)
[2024-04-14 05:12] LABS: APTT 35.4 Sec (23.4-35.0); INR 2.19; PT 24.2 Sec (11.4-14.6)
[2024-04-14 05:29] LABS: Cortisol, Random 16.8 ug/dl
[2024-04-14 05:34] LABS: Heparin Anti-Xa LMW (LMWH) > 2.00 IU/mL (0.20-0.50)
--- NOTE | 2024-04-14 08:09 | W.PN.INTV ---
Today's Communication / Plan
Recommendations
Amiodarone drip with goal HR <110
Transition to PO amio tomorrow AM
ABx with Flagyl/cefepime
Podiatry on board, recs appreciated --> eventual left heel debridement
Resume atenolol vs metoprolol when BP can tolerate
Replete K>4, Mg>2
PT/OT/FAMILY HELPER
Patient stable for downgrade out of ICU to IMU. Pulmonary service will continue to briefly follow along.
Assessment
-
Assessment: 83-year-old female never smoker with a past medical history of DVT (RLE Dx in 06/2022), history of PE (11/2023) on Eliquis, moderate restrictive lung disease, paroxysmal A-fib, GERD, PAD, herniated disc, valvular heart disease,
hypertension, hyperlipidemia, restless leg syndrome and peptic ulcer disease who presents from home with shortness of breath, altered mental status and appearing pale. Weakness has been ongoing for the last 2-3 weeks with altered mental status
occurring over the last several days. She has been having poor oral intake with confusion and incoherent speech. She has a left heel foot ulcer for the last 1.5 years. No reported shortness of breath, fevers or chills. Initial vitals in the ER
showed heart rate of 122, breathing at 16 breaths minute, BP 116/91 and saturating 90% via nonrebreather. She was afebrile to 99.4 �F via rectal thermometer. Initial labs showed leukocytosis to 17.3, Hb 11.2, blood gas showing pH 7.26 with pCO2
39, serum sodium 134, serum bicarbonate level 16, creatinine 2.6, glucose 58, lactate 4.7, initial troponin 0.698, proBNP >27,000, with abnormal urinalysis with +2 leukocyte esterase and 80�90 urine WBC, COVID antigen is negative. Blood cultures
collected, CXR showed no focal airspace disease, and CT chest, abdomen, pelvis showed small bilateral pleural effusions with small volume ascites with small volume pericholecystic fluid and body wall edema with colonic diverticulosis. Also a 2.5 x
3.8 cm hyperintense nodule within the left adnexa. Fluid XR showed large soft tissue defect/ulceration along the plantar heel with no juan diego osseous erosions seen or radiographic evidence for active OM. She was given 1 amp of D50, IVF with 1 L
total of NS 0.9%, Zosyn and started on Levophed due to persistent hypotension wih SBP in 80s. She was admitted to the ICU for further care and critical care services consulted for additional management/recommendations.
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
regurgitation + aortic insufficiency, paroxysmal A-fib, GERD, PAD, [place]'s lymphedema, MGUS, osteoporosis
Impression:
#Septic shock likely due to left heel ulcer may be contributing with possible osteomyelitis; less likely UTI given negative urine culture - shock state resolved since late evening of 04/13
#Altered mental status likely due to toxic�metabolic encephalopathy related to JOYCE + sepsis --> mentation now markedly improved and she is answering my questions appropriately
#Atrial fibrillation with RVR on amiodarone drip
#JOYCE (baseline Cr approximately 0.8�1)
#Hypoglycemia � resolved
#Hyponatremia likely due to reduced PO intake
#Transaminitis with pericholecystic fluid seen on CT - suspicious for cholecystitis
#2.5 x 3.8 cm mildly hyperintense nodule within the left adnexa, differential including lymph node versus left adnexal lesion
#Anemia (baseline Hb 10�11.5g/dL)
#Elevated INR to likely due to reduced PO intake in the setting of Eliquis
#Elevated proBNP of >27,000
#Elevated troponin likely due to demand ischemia with type II OR
#Moderate restrictive lung defect (post BD FVC: 57% predicted/1.31 L; T%, VC: 70%)
#History of RLE DVT (Dx 06/2022) + history of PE (Dx 11/2023) on Eliquis
#History of peripheral neuropathy - this likely contributed to her left heel ulceration
#Valvular heart disease with moderate MR, mild , moderate AI, moderate TR, enlarged RV with normal RV systolic function � per TTE from September 2023
#Severe pulmonary hypertension with PASP 69 mmHg assuming RAP 3 mmHg with stage II diastolic dysfunction - per TTE from September 2023
Plan:
- HR under control on amio gtt
- Change to PO tomorrow AM and continue with load with eventual transition to 200mg daily
- She takes atenolol at home however given borderline hypotension, continue to hold and resume once no longer hypotensive
- Keep MAP>65
- Left heel wound Cx growing GNR + Staph aureus--> micro labs shows that Staph aureus is methicillin sensitive
- Continue with cefepime + Flagyl
- Podiatry consulted and recommendations appreciated to eventual surgical debridement
- Wound care to left heel
- Diet as per FAMILY HELPER with aspiration precautions
- No longer need to trend troponin given it peaked at 0.961 on 04/13
- Renally dose all meds and ABx
- Nephrology consulted --> recs appreciated
- trend sCr and UOP
- Trend LFTs, serum Na and serum HCO3
- Check pelvic ultrasound to further evaluate left adnexal 2.5 x 3.8 cm nodule
- RUQ US shows echogenic sludge within the GB without GB wall thickening or pericholecystic fluid, making acute cholecystitis less likely
- Maintain SpO2 >90-94%
- prn nebulized bronchodilators - patient currently not bronchospastic
- Despite elevated proBNP, there is no evidence of volume overload per CXR or clinically, although there are small bilateral pleural effusions seen on CT chest from 04/12/2024; hold off on diuresis for now; proBNP may be elevated given history of
severe pulmonary hypertension
- Consider repeat TTE
- Replete electrolytes with K>4, Mg>2
- Maintain euglycemia with goal BG 140-180; avoid hypoglycemia
- Trend Hb and transfuse if needed to keep Hb>7g/dL, plt>20k
- DVT ppx: restart Eliquis tonight at 5mg BID given recent acute PE
I discussed the patient's clinical status with the , Anthony, and son, Ashley, and answered all their questions. Pt remains full code.
Patient stable for downgrade out of ICU to IMU. Pulmonary service will continue to briefly follow along.
Total time spent today was 75 minutes for this encounter. Time includes reviewing laboratory test/imaging results, reviewing pertinent medical records, obtaining and reviewing medical history, performing an appropriate exam, ordering medications,
tests and procedures. Time also includes documentation of this encounter, coordinating patient care and communicating with other healthcare professionals. Total time does not include separately billed tests performed on this date of service.
Data:
CT chest, abdomen, pelvis without contrast 04/12/2024:
1. There is four-chamber cardiomegaly with small right greater than left bilateral pleural effusions with adjacent atelectasis.
2. Small volume ascites including small volume pericholecystic fluid, likely sequelae of left heart disease. Additional generalized body wall edema.
3. Colonic diverticulosis without evidence of acute diverticulitis.
4. 2.5 x 3.8 cm mildly hyperintense nodule within the left adnexa which may represent lymph node versus possible left adnexal lesion. Consider dedicated pelvic ultrasound for further evaluation.
5. Chronic L1 compression deformity with prior L3-L5 spondylolisthesis and posterior fusion.
Left foot XR 04/12/2024:
Large soft tissue defect/ulceration along the plantar heel. No juan diego osseous erosions identified. No convincing radiographic evidence for active osteomyelitis. MRI would be of greater sensitivity.
Diffuse demineralization. No acute fracture or dislocation. Scattered mild to moderate osteoarthritic changes. Moderate plantar calcaneal enthesopathy
RUQ US 04/13/2024:
1. Echogenic sludge within the gallbladder, without significant gallbladder wall thickening or pericholecystic fluid. No gallstones appreciated. Acute cholecystitis is considered unlikely. If clinical concern remains high, consider HIDA scan
(although HIDA may be falsely positive in the setting of septic shock).
2. Small bilateral pleural effusions.
3. Small amount of fluid within Morison's pouch in the right hepatorenal space
Transthoracic echocardiogram 10/24/2023:
Normal left ventricular systolic function. Left ventricular ejection fraction
is 60-65%.
Stage II diastolic dysfunction suggestive of abnormal relaxation and increased
filling pressures.
Moderate mitral regurgitation.
Mild aortic stenosis. Peak/mean gradients across the aortic valve are 28/15
mmHg respectively. Using LVOT diameter 2.0cm, calculated DAMON is 1.9cm2.
Moderate aortic regurgitation.
Enlarged right ventricular size. Normal right ventricular systolic function.
Moderate tricuspid regurgitation. Severely elevated PASP. Estimated pulmonary
artery pressure of 69 mmHg assuming a right atrial pressure of 3 mmHg.
Compared to 06/25/19: moderate MR is stable. Aortic sclerosis has progressed
to mild . Mild AR has progressed to moderate. RV is now dilated. TR has
progressed from from mild to moderate, and PASP has increased from 30 mmHg to
69 mmHg,
Subjective Dataa
Subjective Data
Date of Service:
Date of Service: April 14, 2024
Chief Complaint: Classer Follow Up
Subjective:
Patient seen and evaluated this morning. Much more awake this morning, and is able to answer my questions appropriately. Creatinine improving. Saturating 95% on 2 L/min, heart rate 112�120, BP 107/58. Off levophed since midnight last night.
Endorses whole-body discomfort and generalized weakness. Patient's , Anthony, in addition to son, Ashley, both at bedside � all questions were answered.
Review of Systems
General: Other (Negative unless mentioned above)
Objective Data
Data Reviewed
Vital Signs / I&O / Oxygen:
Vital Signs
Temp Pulse Resp BP Pulse Ox
98.8 F 103 17 104/65 96
04/14/24 08:41 04/14/24 06:15 04/14/24 06:15 04/14/24 06:00 04/14/24 08:39
Intake and Output
04/13/24 04/14/24 04/15/24
06:59 06:59 06:59
Intake Total 2798.8 / 2956.3 1348.2 / 1364.9 33.4 / 33.4
Output Total 170 / 185 700 / 700 10 / 10
Balance 2628.8 / 2771.3 648.2 / 664.9 23.4 / 23.4
SaO2 96
Nasal Cannula flow liters per 2
minute
Physical Exam
General: Respiratory Distress (negative), Comfortable, Pain (generalized), Chills (negative), Sweats (negative) and Poor Appetite
HEENT: Normocephalic and Anicteric
Cardiovascular: Irregular Rhythm (Irregularly irregular), Peripheral Edema (negative) and Other (Tachycardic)
Respiratory: Wheeze (negative), Crackles (Bibasilar), Rhonchi (negative) and Non-Labored Respirations
GI: Soft, Distended (Abdominal obesity), Non Tender and Normal Bowel Sounds
Neurology: Awake, Alert and Tremors (negative)
Skin: Warm, Dry, Cyanosis (negative), Jaundice (negative) and Other (Left heel golf ball sized, foul-smelling ulcer without purulence or exsanguination seen; right fifth metatarsal small ulcer/wound without active exsanguination or purulence seen;
neither ulcers are tender to palpation)
Labs/Micro/Reports
Lab Data
04/14/24 04:18
04/14/24 04:18
Laboratory Results
04/14/24
04:18
PT 24.2 H
INR 2.19
APTT 35.4 H
Microbiology
04/12/24 21:35 Urine Urine Culture - Final
04/12/24 19:51 Nose MRSA Screen - Final
No Methicillin Resistant Staphylococcus aureus isolated.
04/12/24 15:46 Blood/Venous Blood Culture - Preliminary
No Growth in 24 hours- Final report to follow
04/13/24 11:09 Heel - Left Gram Stain - Preliminary
[2024-04-14] MEDS: NSS (PRESERVATIVE FREE) 10 ML IV (08:11)
[2024-04-14] MEDS: SANTYL OINTMENT 1 APPLIC TOPICAL (08:12)
[2024-04-14] MEDS: PROTONIX IV 40 MG IV (08:12)
[2024-04-14] MEDS: STERILE WATER FOR INJECTION 10 ML IV (08:12)
[2024-04-14] MEDS: DAKIN'S SOLUTION 0.125% 1/4 STRENGTH 473 ML TOPICAL (08:12)
[2024-04-14] MEDS: MAXIPIME 1000 MG IV (08:12)
--- NOTE | 2024-04-14 08:21 | PTCARENOTE ---
Received patient from imaging science professor. patient still somnolent, lethargic, generally just feels unwell. She is asking for tylenol for headache. TT physician. Patient is AAOx3, remains on 2L nasal cannula, 96%. lungs diminished, weak inspiratory
effort. She is still in Afib on 120s. Amio gtt at 0.5 as documented in worklist. Generalized anasarca. SCDs on bilateral lower extremities. Patient NPO, pending speech eval. Continues to have minimal urine output. only 10ml/ by 8am. Skin as
documented in focused shift assessment. Will review orders, call corona within reach.
--- NOTE | 2024-04-14 09:28 | PTOTSP ---
ST Acute Care Evaluation
Pt currently presents with clinical signs of mild to moderate oropharyngeal and esophageal dysphagia in the setting of acute metabolic encephalopathy characterized by prolonged bolus manipulation and inadequate airway protection as exhibited by
timely and delayed throat clearing with PO ingestion as well as intermittent belching s/p ingestion of liquids.
Recommendations:
- Continue NPO status with meds whole in puree.
- ARHP - ice chips sparingly with supervision after oral care ONLY.
- Aspiration and reflux precautions: HOB upright as often as possible; oral care QID.
- CLIENT SUPPORT ASSOCIATE to f/u re: re-assessment of pt's appropriateness for PO diet initiation as well as to determine whether pt would benefit from an instrumental swallow assessment.
[2024-04-14] MEDS: TYLENOL 650 MG PO ×2 (09:33→15:40)
[2024-04-14] MEDS: CORDARONE 518 MG IV (10:36)
--- NOTE | 2024-04-14 10:47 | PN.CDI ---
CDI
- -
CDI:
Physician Documentation Request
Admit Date: 04/12/24 17:58
Dear Doctor,
Please review the following and provide your response in the progress notes.
Clinical Indicators:
Pt admitted with sepsis shock 2/2 possible UTI /ATN/Acute on Chronic Diastolic CHF
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
Nursing wound care notes 04/12, ' Left heel /right lateral foot. pressure injury related...'
Physician documentation of the type and location of wounds is required for compliant documentation. Based on the above clinical findings and your assessment, please provide the following in your progress note:
Type (etiology) of ulcer/wound:
- Pressure (decubitus) ulcer
- Arterial (ischemic) ulcer
- Non-pressure ulcer
- Other
Use of terms such as suspected, likely, concern for, or probable (associated with a specific diagnosis that is being evaluated, monitored, or treated as if it exists) are acceptable and can be coded in the inpatient setting, when documented at the
time of discharge.
Thank you,
Loren Moore RN
CDI Specialist
[place] [facility]
Please use your independent medical judgment in providing your response.
*Source: National Pressure Ulcer Advisory Panel (NPUAP)
--- NOTE | 2024-04-14 10:56 | PN.CDI ---
CDI
- -
CDI:
Physician Documentation Request
Admit Date: 04/12/24 17:58
Dear Doctor Jazmine,
Please review the following and provide your response in the progress notes.
Clinical Indicators:
Pt admitted with sepsis shock 2/2 possible UTI /ATN/Acute on Chronic Diastolic CHF
Documented per EMS report, ' SP02 on 6 LPM via NC 78% .... 15 LPM NRB mask resp 28 effort labored 78 % oxygen ... Pulse 122 SP02 90% 10-25 LPM ..'
Documented per H&P, ' Respiratory: Decreased breath sounds bilateral... Irregular rate and rhythm, tachycardic...Acute hypoxic respiratory failure:...Nonrebreather mask at this point 100%We can use also BiPAP if needed Keep n.p.o. given acute
situation and likely need for intubation until clinical improvement noticed and then can start oral intake Ultimately might need intubation and mechanical ventilation if worsens explained this to patient and family at bedside...'
Progress note 04/13,' Acute hypoxic respiratory insufficiency:Continue oxygen supplementation... On 2 L of oxygen....'
04/12/24
15:46
VBG pH 7.26 L
VBG pO2 65 H
VBG HCO3 17.5 L
Clarify which of the following accurately represents the patient's respiratory status:
Acute Hypoxic Respiratory failure-Resolved
Hypoxic only
Other
Additional information for Respiratory Failure:
Recognized criteria for Respiratory Failure (Source: [employer] Hospitalist Jun 2013)
ABGs: (1 or more) Symptoms Please indicate type if known
1. p)2 <60 or RA SPO2 <91% on RA 1. Tachypnea, SOB, dyspnea Hypoxic
2. pCO2 50 and pH <7.35 2. Use of accessory muscles Hypercapnic
3. pO2 decrease of pCO2 increase by 3. Pallor or cyanosis Hypoxic and Hypercapnic
10 mmHg from baseline if known 4. Anxiety or restlessness Unable to determine
5. Unable to speak in full sentences
Supplemental O2 of > 40% (5LPM) Intubation is not required
Use of terms such as suspected, likely, concern for, or probable (associated with a specific diagnosis that is being evaluated, monitored, or treated as if it exists) are acceptable and can be coded in the inpatient setting, when documented at the
time of discharge.
Thank you,
Loren Moore RN
CDI Specialist
[place] [facility]
Please use your independent medical judgment in providing your response.
--- NOTE | 2024-04-14 12:00 | PTCARENOTE ---
No changes in patient's assessment. patient is still somnolent, continuing to turn and reposition.
[2024-04-14 12:30] LABS: Glycohemoglobin (HgbA1c) 5.6 % (4.0-5.6)
[2024-04-14 12:33] LABS: ALT (SGPT) 247 U/L (0-35); AST (SGOT) 322 U/L (14-36); Albumin 2.8 g/dl (3.5-5.0); Alkaline Phosphatase 121 U/L (38-126); Direct Bilirubin 0.6 mg/dl (0.0-0.4); Total Bilirubin 0.8 mg/dl (0.2-1.3); Total Protein 5.3 g/dl (6.3-8.2)
--- NOTE | 2024-04-14 15:02 | W.PN.HOSP.TC ---
Addendum entered and electronically signed by Ridge Lucero MD 04/14/24 16:06:
Hypoxic only
Original Note:
Today's Communication/Plan
-
IV antibiotics.
Assessment / Plan
Assessment / Plan
Physical exam:
General: Acutely ill. Improved appearance overall.
HEENT: Normocephalic, Atraumatic and Dry Mucous Membranes
Respiratory: Decreased breath sounds bilateral; Clear to Auscultation; Negative Wheezes, Rales or Rhonchi
Cardiac: Irregular rate and rhythm, tachycardic but less, and S1/S2, systolic murmur
GI: Soft, Nontender and Nondistended
Musculoskeletal: Left heel wound with some erythema, granulation, scant purulent. Also right fifth digit wound with purulence. No Clubbing, No Cyanosis and No Edema
Neuro: Alert oriented today, still with generalized weakness and mild lethargy but much improved.
A/P:
Septic shock likely due to infected foot ulcer, also less likely but still possible UTI:
Improving
Off pressors
Continue IV cefepime renally dosed and metronidazole.
Follow-up cultures and adjust antibiotic according to results when available.
Podiatry consulted
WBC 17.3--> 12.7
Discussed with RN
Updated family yesterday
Speech therapy for swallowing eval
PT OT
Acute hypoxic respiratory insufficiency:
Continue oxygen supplementation and wean off
Atrial fibrillation with rapid ventricular response:
Improving
Continue IV amiodarone drip today and will switch to oral tomorrow
Restart Eliquis
Continue cardiac monitoring
Acute kidney injury:
Creatinine 2.6--> 1.6 today
Discussed with nephrology today
Continue Drummond but can discontinue over the next 24 to 48 hours
Hyponatremia:
Today sodium 130
Monitor trend
Elevated troponin:
Elevated troponin likely due to non-ischemic myocardial injury due to sepsis
Trended cardiac enzymes
Cardiac monitoring
Anemia and pancytopenia in the past:
Monitor hemoglobin closely
Family tells me that is in the works of bone marrow biopsy for suspicions of diagnosis of non-Hodgkin lymphoma
Chronic diastolic congestive heart failure:
Will diurese after hemodynamic improves if needed
Currently volume status stable
Reviewed latest echocardiogram in our system
BNP over 27,000
Septic and toxic metabolic encephalopathy:
Improving
Etiology sepsis and hypoglycemia
Monitor mental status and glucose
Metabolic acidosis:
Improved with bicarb drip and now off
Left foot wound:
Antibiotics
Cultures
Podiatry consulted
DVT prophylaxis:
Eliquis
CODE STATUS:
Full code
Total time spent on today's encounter was 52 minutes which included time spent in counseling the patient/family regarding diagnosis and treatment plan as listed above, goals of care, and symptom management. Case was discussed with nursing staff,
specialists, and care coordinators/case management. All labs and imaging personally reviewed by me. Remainder the time spent in detailed review of previous records, lab data, imaging, and other medical provider documentation.
Anticipated Discharge: > 48 hours
Subjective/Interval History
-
Date of Service: April 14, 2024
Patient more alert today. Still weak overall. No abdominal pain. Afebrile
Objective Data
-
Labs:
Laboratory Results
04/14/24
04:18
WBC 12.7 H
Hgb 10.1 L
Hct 30.6 L
Plt Count 282
PT 24.2 H
INR 2.19
APTT 35.4 H
Sodium 130 L
Potassium 4.1
Chloride 95 L
Carbon Dioxide 27
BUN 70 H
Creatinine 1.6 H
Glucose 133 H
Calcium 8.4
Total Bilirubin 0.8
AST 322 H
ALT 247 H
Alkaline Phosphatase 121
Vital Signs:
Vital Signs
Temp Pulse Resp BP Pulse Ox
98.7 F 113 16 107/58 97
04/14/24 11:50 04/14/24 10:30 04/14/24 10:30 04/14/24 10:30 04/14/24 10:30
I&O
04/13/24 04/14/24 04/15/24
06:59 06:59 06:59
Intake Total 2798.8 / 2956.3 1348.2 / 1364.9 133.6 / 133.6
Output Total 170 / 185 700 / 700 140 / 140
Balance 2628.8 / 2771.3 648.2 / 664.9 -6.4 / -6.4
--- NOTE | 2024-04-14 15:31 | CM ---
CM reviewed medical records. Patient remains acutely ill. Pending PT recommendations.
--- NOTE | 2024-04-14 15:33 | PTCARENOTE ---
no changes in patient's assessment. family at bedside, continues to have marginal urine output.
--- NOTE | 2024-04-14 15:36 | W.PN.NEPH.PH ---
Today's Communication / Plan
-
- continue to trend Cr
Assessment/Plan
-
Assessment:
Septic shock 2/2 to UTI
Afib
JOYCE
Elevated trop
Plan:
- JOYCE likely in the setting of ATN (especially with documented hypotension)
- baseline cr around 1, peak 2.5, now at 1.6
- she appears to be opening up re: UOP
- continue to trend Cr and UOP
- maintain MAP >65
- agree with broad spectrum abx, however, monitor carefully for cefepime induced neurotoxicity especially with JOYCE and AMS. i will adjust to 1g q 24h
I remain for continued improvement in kidney function over the next 24-48 hours. We will follow along.
-
-
Date of Service: April 14, 2024
CC / HPI / ROS
-
Chief Complaint:
JOYCE
History of Present Illness:
Cr peak 2.5, down to 1.6, bl 1
septic shock 2/2 foot ulcer
Review of Systems:
cefepime dose adjusted and mental status [id number]
Labs
-
Labs:
WBC 12.7 10^3/uL (4.8-10.8) H 04/14/24 04:18
RBC 3.46 10^6/uL (4.20-5.40) L 04/14/24 04:18
Hgb 10.1 g/dL (12.0-16.0) L 04/14/24 04:18
Hct 30.6 % (37.0-47.0) L 04/14/24 04:18
Plt Count 282 10^3/uL (130-400) 04/14/24 04:18
Sodium 130 mmol/L (135-145) L 04/14/24 04:18
Potassium 4.1 mmol/L (3.5-5.1) 04/14/24 04:18
Chloride 95 mmol/L (98-107) L 04/14/24 04:18
Carbon Dioxide 27 mmol/L (22-30) 04/14/24 04:18
BUN 70 mg/dl (7-17) H 04/14/24 04:18
Creatinine 1.6 mg/dL (0.6-1.0) H 04/14/24 04:18
eGFR 32.00 04/14/24 04:18
Glucose 133 mg/dl (70-99) H 04/14/24 04:18
Calcium 8.4 mg/dl (8.4-10.2) 04/14/24 04:18
Phosphorus 4.4 mg/dl (2.5-4.5) 04/14/24 04:18
Cab-Q-Ydzxjnladnx Pept > 06219 pg/ml 04/12/24 15:11
Albumin 2.8 g/dl (3.5-5.0) L 04/14/24 04:18
Physical Exam
-
Vital Signs:
Vital Signs
Temp Pulse Resp BP Pulse Ox
98.7 F 103 17 113/70 96
04/14/24 11:50 04/14/24 15:30 04/14/24 15:30 04/14/24 15:00 04/14/24 15:30
Cardiovascular:: Regular rate and rhythm
Respiratory:: Bilateral: CTA
Lung Excursion:: Normal
Abdomen:: Nontender and Soft
Extremity Edema:: None: Bilateral:
Drummond Catheter: No
[2024-04-14 16:00] LABS: Glucose - Point of Care 96 mg/dl (70-99)
--- NOTE | 2024-04-14 19:12 | W.PN.UPDATE ---
Update Note
Progress Note Update
Right foot xray without demineralization or acute signs of infection, however, MRI recommended.
Would hold off on bone biopsy in light of present IV abt with Flagyl/cefepime
MRI more sensitive to possible OM, however d/w Dr Berumen this will need to be w/o contrast at this time as result of JOYCE
WBC improved, continue daily wound care and will follow with results of MRi, when she is able to tolerate will also obtain arterial doppler study
Will follow with you
[2024-04-14] MEDS: ELIQUIS 5 MG PO (19:53)
--- NOTE | 2024-04-14 20:55 | PTCARENOTE ---
Received patient AAOx3, following commands, denying pain. Afib 100s-120s, BP stable, normothermic. Palpable pedal and radial pulses bilaterally. 96% on 2L nasal cannula, lung sounds diminished throughout. Abdomen soft, round, hypoactive bowel
sounds. Erazo in place for critical Is/Os draining yellow urine with sediment. Wound dressings CDI. Amio gtt ongoing per protocol. Right DL PICC and PIVs patent, WNL. Repositioned, mouth care done, erazo care done. Call corona within reach, able to
make needs known.
[2024-04-15] VITALS (21 sets, daily range): BP systolic 101–138; BP diastolic 55–91; PULSE 109–131; O2SAT 96; BMI 29.2
[2024-04-15 00:32] LABS: Glucose - Point of Care 92 mg/dl (70-99)
[2024-04-15] MEDS: DILAUDID 0.25 MG IV (03:05)
[2024-04-15] MEDS: FLAGYL 500 MG 100 IV ×2 (03:05→12:11)
--- NOTE | 2024-04-15 03:06 | DOWNTIME ---
There was a [employer] Client Night Monitor Downtime on 04/15/2024 from 0100 to 04/15/2024 at 0252. Downtime documentation of patient's care, including medication administrations, has been reconciled in the electronic record per guidelines. Refer to the
patient's paper chart under the miscellaneous tab to see printed paper medication records and downtime forms.
[2024-04-15 03:41] LABS: % Basophils 0.3 % (0-2); % Eosinophils 1.3 % (0-6); % Immature Granulocytes 1.2 % (0-0.5); % Lymphocytes 12.4 % (20.5-51.1); % Monocytes 8.5 % (1.7-9.3); % Neutrophils 76.3 % (42.2-75.2); Absolute Eosinophils 0.1 10^3/uL (0-0.7); Absolute Immature Granulocytes 0.1 10^3/uL (0-0.05); Absolute Lymphocytes 1.2 10^3/uL (1.2-3.4); Absolute Monocytes 0.9 10^3/uL (0.1-0.6); Absolute Neutrophils 7.7 10^3/uL (1.4-6.5); Hematocrit 29.2 % (37.0-47.0); Hemoglobin 9.7 g/dL (12.0-16.0); Mean Corp Hgb Conc. 33.2 g/dL (33.0-37.0); Mean Corpuscular Hgb 28.5 pg (27.0-31.0); Mean Corpuscular Volume 85.9 fL (81.0-99.0); Mean Platelet Volume 10.8 fL (7.4-10.4); Nucleated Red Blood Cells % 0.7 %; Platelet Count 245 10^3/uL (130-400); Red Cell Dist. Width 17.1 % (11.5-14.5)
[2024-04-15 03:55] LABS: Blood Urea Nitrogen 60 mg/dl (7-17); Calcium 8.7 mg/dl (8.4-10.2); Carbon Dioxide 26 mmol/L (22-30); Chloride 98 mmol/L (98-107); Estimated Creatinine Clearance 34 ml/min; Glucose 163 mg/dl (70-99); Magnesium 1.9 mg/dl (1.6-2.3); Phosphorus 3.5 mg/dl (2.5-4.5); Potassium 3.8 mmol/L (3.5-5.1); Sodium 131 mmol/L (135-145); eGFR 45.19
--- NOTE | 2024-04-15 06:22 | PTCARENOTE ---
Morning glucose on labs 163.
--- NOTE | 2024-04-15 07:59 | W.PN.HOSP.TC ---
Today's Communication/Plan
-
MRI of feet
NOMI/TBI
Speech consult
ID consult
Cardiology consult
Assessment / Plan
Assessment / Plan
General: Acutely ill. Improved appearance overall.
HEENT: Normocephalic, Atraumatic and Dry Mucous Membranes
Respiratory: Decreased breath sounds bilateral; Clear to Auscultation; Negative Wheezes, Rales or Rhonchi
Cardiac: Irregular rate and rhythm, tachycardic but less, and S1/S2, systolic murmur
GI: Soft, Nontender and Nondistended
Musculoskeletal: Left heel wound with some erythema, granulation, scant purulent. Also right fifth digit wound with purulence. No Clubbing, No Cyanosis and No Edema
Neuro: Alert oriented today, still with generalized weakness and mild lethargy but much improved.
Acute metabolic encephalopathy -due to septic shock, critical illness, multiorgan failure. Suspect mental status improving. Today is my first day assessing this patient.
Septic shock - due to deep left heel ulcer. Shock resolved. Leukocytosis resolved. Afebrile. Blood cultures negative. Off vasopressors. Consult infectious disease. Left heel wound culture shows many gram-negative bacilli, many presumptive
Staph aureus. Currently on IV cefepime, metronidazole.
Dysphagia -suspect acute. Oropharyngeal and esophageal dysphagia suspected by speech therapy, likely due to acute illness, acute metabolic encephalopathy. Currently n.p.o., awaiting speech therapy reassessment.
Acute hypoxic respiratory insufficiency:
Continue oxygen supplementation and wean off
Atrial fibrillation with rapid ventricular response -due to critical illness. Off amiodarone drip and now on oral amiodarone loading. Consult cardiology. Eliquis resumed. Atenolol scheduled to resume today.
JOYCE -due to septic shock, ATN. Renal function improving. Nephrology following. Furosemide and lisinopril on hold since admission.
Continue Drummond but can discontinue over the next 24 to 48 hours
Hyponatremia -stable, 131.
Elevated troponin:
Elevated troponin likely due to acute non-ischemic myocardial injury due to sepsis. Troponin trending down.
Acute on chronic anemia - hemoglobin 9.7 today, admission hemoglobin 11.2. Baseline hemoglobin appears to be 10-11 range. No evidence of bleeding clinically. Suspect acute anemia due to acute illness. Unclear etiology of chronic normocytic
anemia. Will need further evaluation as an outpatient.
Family tells me that is in the works of bone marrow biopsy for suspicions of diagnosis of non-Hodgkin lymphoma
Chronic heart failure preserved EF -weight is creeping up, admission weight was 67 kg, 72 kg today. She was on furosemide 20 mg twice daily prior to admission.
Chronic left foot heel wound -check NOMI, TBI to evaluate for PAD. Wound measures 4 x 2 x 1 cm and is unstageable according to wound care nurse. She had an arterial study done about 1 year ago that showed right lower extremity infrapopliteal
disease.
Full code
.
Anticipated Discharge: > 48 hours
Subjective/Interval History
-
Date of Service: April 15, 2024
Patient seen and examined. No complaints.
Objective Data
-
Labs:
Laboratory Results
04/15/24
03:13
WBC 10.0
Hgb 9.7 L
Hct 29.2 L
Plt Count 245
Sodium 131 L
Potassium 3.8
Chloride 98
Carbon Dioxide 26
BUN 60 H
Creatinine 1.2 H
Glucose 163 H
Calcium 8.7
Vital Signs:
Vital Signs
Temp Pulse Resp BP Pulse Ox
97.9 F 109 9 109/68 95
04/15/24 07:41 04/15/24 06:00 04/15/24 06:00 04/15/24 06:00 04/15/24 06:00
I&O
04/14/24 04/15/24 04/16/24
06:59 06:59 06:59
Intake Total 1348.2 / 1364.9 600.8 / 600.8
Output Total 700 / 700 604 / 604
Balance 648.2 / 664.9 -3.2 / -3.2
Review of Systems
-
History Source: Patient
All other systems: Reviewed and negative
--- NOTE | 2024-04-15 08:17 | W.PN.PUL3 ---
Today's Communication / Plan
-
Transition off amiodarone drip today to PO Amio; goal HR<110
ABx with cefepime --> Tx for 10-14 days total given she presented with septic shock
MRI right forefoot and left heel today shows no evidence of osteomyelitis
Podiatry on board, recs appreciated --> plan for left heel bedside debridement tomorrow
Resume atenolol; diuresis per cardiology given echo findings of RV volume overload
Replete K>4, Mg>2
PT/OT --> rec'd skilled rehab upon discharge
[facility] [facility] [facility] following - defer diet to them
Patient stable for downgrade out of IMU to telemetry. Pulmonary service will now sign off. Please reconsult if there are any additional questions/concerns, or if patient's respiratory status deteriorates.
Assessment
-
Assessment: 83-year-old female never smoker with a past medical history of DVT (RLE Dx in 06/2022), history of PE (11/2023) on Eliquis, moderate restrictive lung disease, paroxysmal A-fib, GERD, PAD, herniated disc, valvular heart disease,
hypertension, hyperlipidemia, restless leg syndrome and peptic ulcer disease who presents from home with shortness of breath, altered mental status and appearing pale. Weakness has been ongoing for the last 2-3 weeks with altered mental status
occurring over the last several days. She has been having poor oral intake with confusion and incoherent speech. She has a left heel foot ulcer for the last 1.5 years. No reported shortness of breath, fevers or chills. Initial vitals in the ER
showed heart rate of 122, breathing at 16 breaths minute, BP 116/91 and saturating 90% via nonrebreather. She was afebrile to 99.4 �F via rectal thermometer. Initial labs showed leukocytosis to 17.3, Hb 11.2, blood gas showing pH 7.26 with pCO2
39, serum sodium 134, serum bicarbonate level 16, creatinine 2.6, glucose 58, lactate 4.7, initial troponin 0.698, proBNP >27,000, with abnormal urinalysis with +2 leukocyte esterase and 80�90 urine WBC, COVID antigen is negative. Blood cultures
collected, CXR showed no focal airspace disease, and CT chest, abdomen, pelvis showed small bilateral pleural effusions with small volume ascites with small volume pericholecystic fluid and body wall edema with colonic diverticulosis. Also a 2.5 x
3.8 cm hyperintense nodule within the left adnexa. Fluid XR showed large soft tissue defect/ulceration along the plantar heel with no juan diego osseous erosions seen or radiographic evidence for active OM. She was given 1 amp of D50, IVF with 1 L
total of NS 0.9%, Zosyn and started on Levophed due to persistent hypotension wih SBP in 80s. She was admitted to the ICU for further care and critical care services consulted for additional management/recommendations.
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
regurgitation + aortic insufficiency, paroxysmal A-fib, GERD, PAD, [place]'s lymphedema, MGUS, osteoporosis
Impression:
#Septic shock likely due to left heel ulcer may be contributing with possible osteomyelitis; less likely UTI given negative urine culture - shock state resolved since late evening of 04/13
#Altered mental status likely due to toxic�metabolic encephalopathy related to JOYCE + sepsis --> mentation now markedly improved and she is answering my questions appropriately
#Atrial fibrillation with RVR on amiodarone
#JOYCE (baseline Cr approximately 0.8�1) - improving
#Hypoglycemia � resolved
#Hyponatremia likely due to reduced PO intake - serum Na stable and improving
#Transaminitis with pericholecystic fluid seen on CT - suspicious for cholecystitis
#2.5 x 3.8 cm mildly hyperintense nodule within the left adnexa, differential including lymph node versus left adnexal lesion
#Anemia (baseline Hb 10�11.5g/dL)
#Elevated INR to likely due to reduced PO intake in the setting of Eliquis
#Elevated proBNP of >27,000
#Elevated troponin likely due to demand ischemia with type II ID � peaked at 0.963 on 04/13
#Moderate restrictive lung defect (post BD FVC: 57% predicted/1.31 L; T%, VC: 70%)
#History of RLE DVT (Dx 06/2022) + history of PE (Dx 11/2023) on Eliquis
#History of peripheral neuropathy - this likely contributed to her left heel ulceration
#Valvular heart disease with moderate MR, mild , moderate AI, moderate TR, enlarged RV with normal RV systolic function � per TTE from September 2023
#Severe pulmonary hypertension with PASP 69 mmHg assuming RAP 3 mmHg with stage II diastolic dysfunction - per TTE from September 2023
Plan:
- HR under control on amio gtt --> transition to PO amiodarone today
- Cardiology consulted --> recs appreciated; resuming atenolol with plans to DC amio when able
- Keep MAP>65
- Goal HR<110
- Replete K>4, Mg>2
- Left heel wound Cx grew Klebsiella oxytoca + MSSA (micro labs shows that Staph aureus is methicillin sensitive)
- Continue with cefepime; s/p 3 days of flagyl (04/13 - 04/15) --> discontinued per primary team
- Given that she had septic shock, would plan for 10-14 days total of ABx assuming she continues to clinically improve and remains afebrile for 48 hours prior to stopping antibiotics
- Podiatry consulted and recommendations appreciated --> surgical debridement planned for tomorrow
- Wound care to left heel and right forefoot wounds
- MRI to both feet today --> no convincing evidence for osteomyelitis seen
- Diet as per [facility] [facility] with aspiration precautions
- [facility] [facility] saw patient today and now ordered for regular solids/thin liquids
- No longer need to trend troponin given it peaked at 0.963 on 04/13
- Renally dose all meds and ABx
- Nephrology consulted --> recs appreciated
- trend sCr and UOP
- Trend LFTs, serum Na and serum HCO3
- Pelvic ultrasound done and does not see abnormality seen on CT (left adnexal 2.5 x 3.8 cm nodule) --> MRI recommended --> this can be done non-urgently as an outpatient
- RUQ US shows echogenic sludge within the GB without GB wall thickening or pericholecystic fluid, making acute cholecystitis less likely
- Maintain SpO2 >90-94%
- prn nebulized bronchodilators - patient currently not bronchospastic
- Despite elevated proBNP, there is no evidence of volume overload per CXR or clinically, although there are small bilateral pleural effusions seen on CT chest from 04/12/2024; hold off on diuresis for now; proBNP may be elevated given history of
severe pulmonary hypertension
- Repeat TTE done today shows RV volume overload with persistent MR, now eccentric; severe TR and persistently severe pulmonary hypertension with PASP: 72 mmHg
- Defer diuresis to primary team + cardiology
- Replete electrolytes with K>4, Mg>2
- Maintain euglycemia with goal BG 140-180; avoid hypoglycemia
- Trend Hb and transfuse if needed to keep Hb>7g/dL, plt>20k
- DVT ppx: Continue Eliquis given recent acute PE; trend INR
Code status: full code
Patient stable for downgrade out of ICU to telemetry. Pulmonary service will now sign off. Thank you for allowing us to be involved in the care of this patient. Please reconsult if there are any additional questions/concerns, or if patient's
respiratory status deteriorates.
Total time spent today was 35 minutes for this encounter. Time includes reviewing laboratory test/imaging results, reviewing pertinent medical records, obtaining and reviewing medical history, performing an appropriate exam, ordering medications,
tests and procedures. Time also includes documentation of this encounter, coordinating patient care and communicating with other healthcare professionals. Total time does not include separately billed tests performed on this date of service.
Data:
CT chest, abdomen, pelvis without contrast 04/12/2024:
1. There is four-chamber cardiomegaly with small right greater than left bilateral pleural effusions with adjacent atelectasis.
2. Small volume ascites including small volume pericholecystic fluid, likely sequelae of left heart disease. Additional generalized body wall edema.
3. Colonic diverticulosis without evidence of acute diverticulitis.
4. 2.5 x 3.8 cm mildly hyperintense nodule within the left adnexa which may represent lymph node versus possible left adnexal lesion. Consider dedicated pelvic ultrasound for further evaluation.
5. Chronic L1 compression deformity with prior L3-L5 spondylolisthesis and posterior fusion.
Left foot XR 04/12/2024:
Large soft tissue defect/ulceration along the plantar heel. No juan diego osseous erosions identified. No convincing radiographic evidence for active osteomyelitis. MRI would be of greater sensitivity.
Diffuse demineralization. No acute fracture or dislocation. Scattered mild to moderate osteoarthritic changes. Moderate plantar calcaneal enthesopathy
Left foot MRI 04/15/2024: Soft tissue defect involving the plantar heel, compatible with ulcer.
As described, no convincing evidence for osteomyelitis.
There is significant plantar fasciitis, with adjacent patchy reactive marrow edema.
Degenerative changes of the left ankle; diffuse muscular atrophy.
Right foot MRI 04/15/2024:
Suggestion of a wound lateral to the fifth metatarsophalangeal joint. No evidence for abscess collection. No evidence for adjacent osteomyelitis.
No evidence for osteomyelitis involving the right foot.
Diffuse muscular atrophy; degenerative changes.
RUQ US 04/13/2024:
1. Echogenic sludge within the gallbladder, without significant gallbladder wall thickening or pericholecystic fluid. No gallstones appreciated. Acute cholecystitis is considered unlikely. If clinical concern remains high, consider HIDA scan
(although HIDA may be falsely positive in the setting of septic shock).
2. Small bilateral pleural effusions.
3. Small amount of fluid within Morison's pouch in the right hepatorenal space
Transthoracic echocardiogram 10/24/2023:
Normal left ventricular systolic function. Left ventricular ejection fraction
is 60-65%.
Stage II diastolic dysfunction suggestive of abnormal relaxation and increased
filling pressures.
Moderate mitral regurgitation.
Mild aortic stenosis. Peak/mean gradients across the aortic valve are 28/15
mmHg respectively. Using LVOT diameter 2.0cm, calculated DAMON is 1.9cm2.
Moderate aortic regurgitation.
Enlarged right ventricular size. Normal right ventricular systolic function.
Moderate tricuspid regurgitation. Severely elevated PASP. Estimated pulmonary
artery pressure of 69 mmHg assuming a right atrial pressure of 3 mmHg.
Compared to 06/25/19: moderate MR is stable. Aortic sclerosis has progressed
to mild . Mild AR has progressed to moderate. RV is now dilated. TR has
progressed from from mild to moderate, and PASP has increased from 30 mmHg to
69 mmHg,
Subjective Data
-
Date of Service:
Date of Service: April 15, 2024
Chief Complaint: Pulmonary Follow Up
Subjective:
Seen and evaluated today at bedside. Continues to be awake, answering questions appropriately and is more interactive. BP 126/82, heart rate 107, afebrile overnight and saturating 96% on 2 L/min nasal cannula. Leukocytosis resolved as of this
morning. Creatinine continue to improve, and glucose stable. She denies CP, SOB, PORTILLO, abdominal pain, fevers or chills, although she still endorses fatigue.
Review of Systems
General: Other (Negative unless mentioned above)
Objective Data
Data Reviewed
Vital Signs / I&O / Oxygen:
Vital Signs
Temp Pulse Resp BP Pulse Ox
97.8 F 120 20 121/80 98
04/15/24 16:27 04/15/24 16:27 04/15/24 16:27 04/15/24 16:27 04/15/24 16:30
Intake and Output
04/14/24 04/15/24 04/16/24
06:59 06:59 06:59
Intake Total 1348.2 / 1364.9 600.8 / 617.5 173.4 / 173.4
Output Total 700 / 700 604 / 654 150 / 150
Balance 648.2 / 664.9 -3.2 / -36.5 23.4 / 23.4
SaO2 98
Nasal Cannula flow liters per 2
minute
Physical Exam
General: Respiratory Distress (negative), Pain (generalized), Chills (negative), Sweats (negative) and Poor Appetite
HEENT: Normocephalic and Anicteric
Cardiovascular: Irregular Rhythm (Irregularly irregular) and Other (Tachycardic)
Respiratory: Wheeze (negative), Crackles (Bibasilar), Rhonchi and Accessory Resp Muscle Use (negative)
GI: Soft, Non Distended, Non Tender and Normal Bowel Sounds
Neurology: Awake and Lethargic (Easily arousable and following all commands, answering questions appropriately)
Skin: Warm, Dry, Jaundice (negative) and Other (Left heel covered with gauze, right fifth metatarsal covered with bandage)
Labs/Micro/Reports
Lab Data
04/15/24 03:13
04/15/24 03:13
Microbiology
04/12/24 15:46 Blood/Venous Blood Culture - Preliminary
No Growth in 72 hours- Final report to follow
04/13/24 11:09 Heel - Left Wound Culture - Preliminary
Klebsiella oxytoca
Staphylococcus aureus
04/13/24 11:09 Heel - Left Gram Stain - Preliminary
04/12/24 21:35 Urine Urine Culture - Final
04/12/24 19:51 Nose MRSA Screen - Final
No Methicillin Resistant Staphylococcus aureus isolated.
--- NOTE | 2024-04-15 08:27 | CON.CAR ---
Addendum entered and electronically signed by Roel Mcnamara MD 04/15/24 15:39:
83 yo female with PMH of paroxysmal A fib, and also DVT/PE, on eliquis, moderate AR, mild , moderate MR, moderate TR, pulm HTN admitted with septic shock, likely source of foot ulcer. We are consulted for A fib with RVR. She does not currently
feel palps. Exam with irregular rhythm, II/ systolic murmur at apex, trace LE edema. Tele: A fib 100-110s.
Remains in A fib with mildly elevated rates. Amiodarone is being used for rate control in setting of low BP. BP seems to be improving. We will add back beta sergey. If BP allows, we can titrate beta sergey and stop amiodarone. Continue eliquis
5mg bid. Check echo.
Original Note:
Consultation
Consultation Request
Date/Time Consultation Requested: 04/15/24 [id number]
Date/Time Consultation Performed: 04/15/24828
Requesting Provider: Dr. Guerra
Performing Provider: Mervat OSORIO for Dr. Mcnamara
Reason for Consultation: AFIB
Medical History
-
Chief Complaint: weakness, altered MS
History of Present Illness:
83 y/o female with severe pulmonary hypertension, moderate mitral regurgitation, moderate aortic insufficiency, mild aortic stenosis, DVT/PE on Eliquis, PAF (one documented episode in past), moderate restrictive lung disease, and hypertension who is
here for evaluation of weakness and change in MS. She was admitted with septic shock, suspected to be related to foot ulcer. We are consulted for AFIB with RVR. She was started on a amiodarone drip with plans to transition to PO amiodarone today.
Past Medical History
Past Medical History: HTN, Valvular Disease and Other (DVT/PE, as above)
Social History
Tobacco: Non-Smoker
Family History
Family History: CAD
Allergies / Home Medications
Allergy/AdvReac Type Severity Reaction Status Date / Time
Sulfa (Sulfonamide Allergy Rash-1961 Verified 04/12/24 15:39
Antibiotics)
sulfamethoxazole Allergy Rash-1961 Verified 04/12/24 15:39
trimethoprim Allergy Rash-1961 Verified 04/12/24 15:39
�Medication �Instructions �Recorded �Confirmed �Type
atenolol 50 mg tablet 50 mg PO DAILY Blood pressure 08/01/16 04/12/24 History
atorvastatin 20 mg tablet 20 mg PO QPM High cholesterol 08/01/16 04/12/24 History
acetaminophen 500 mg tablet 1,000 mg PO TIDPRN PRN mild pain 06/01/22 04/12/24 History
(Tylenol Extra Strength)
lisinopril 40 mg tablet 40 mg PO DAILY Blood pressure 07/24/22 04/12/24 History
pregabalin 100 mg capsule 100 mg PO HS Pain 07/24/22 04/12/24 History
duloxetine 60 mg capsule,delayed 60 mg PO DAILY Pain 09/30/22 04/12/24 History
release
apixaban 5 mg tablet (Eliquis) 5 mg PO BID Blood clot 04/12/24 04/12/24 History
prevention/tx
furosemide 20 mg tablet (Lasix) 20 mg PO BID Fluid 04/12/24 04/12/24 History
Retention/Swelling
lisinopril 20 mg tablet 20 mg PO QPM Blood Pressure 04/12/24 04/12/24 History
Review of Systems
-
History Source: Other (chart)
Constitutional: Other (weakness, poor appetite)
Physical Exam
Vital Signs
Temp Pulse Resp BP Pulse Ox
97.9 F 109 9 109/68 95
04/15/24 07:41 04/15/24 06:00 04/15/24 06:00 04/15/24 06:00 04/15/24 06:00
Lab Results
04/15/24 03:13
04/15/24 03:13
Troponin I 0.606 ng/ml H* 04/13/24 12:56
Mjf-A-Wpbqtoxrkyq Pept > 85163 pg/ml 04/12/24 15:11
Physical Exam
General: Well Developed and No Apparent Distress
HEENT: Normocephalic and Anicteric
Respiratory: Clear, Non Labored Respirations and Other (on O2 by NC)
Cardiac: Irregular Rhythm
Musculoskeletal: Edema (chronic BLE edema)
Skin: Warm and Dry
Neuro: Awake and Alert
Psych: Calm
Impression / Plan
-
Septic Shock: improved
-this diagnosis is threat to life
-JOYCE improved
-no longer on pressors
-on IV abx
-source is left foot ulcer- MRI planned for today
-ID consulted
AFIB with RVR: type, onset unknown
-this is in setting of acute illness as above. She had one episode of documented AFIB in the past.
-amiodarone drip was started this admit, and now patient transitioned to PO amiodarone. OP atenolol resumed. Monitor telemetry.
-continue Eliquis for OAC
-update echo
-TSH 03/13/24 2.15
HFpEF, chronic:
-on lasix as OP, held now with JOYCE, sepsis
-monitor volume
-Echo 10/24/23: Normal left ventricular systolic function. Left ventricular ejection fraction is 60-65%. Stage II diastolic dysfunction. Moderate mitral regurgitation. Mild aortic stenosis. Peak/mean gradients across the aortic valve are 28/15 mmHg
respectively, calculated DAMON is 1.9cm2. Moderate aortic regurgitation. Enlarged right ventricular size. Normal right ventricular systolic function. Moderate tricuspid regurgitation. Severely elevated PASP. Estimated pulmonary artery pressure of 69
mmHg assuming a right atrial pressure of 3 mmHg.
Abnormal troponin:
-acute non-ischemic myocardial injury in setting of acute illness with septic shock
Data Reviewed
-
EKG: Tracing Personally Visualized and interpreted (AFIB with RVR 132 BPM)
Radiology: Report Reviewed by me (CXR: 04/12/24)
Medical Tests (Nuc Med, Echo etc): Report Reviewed by me (echo as above)
Labs: Labs Reviewed by me
--- NOTE | 2024-04-15 08:30 | PTCARENOTE ---
Assumed care of pt at 0715 following shift report. Pt resting quietly w/ eyes closed, easily woken to verbal stimuli. Denies any c/o pain or SOB. Pox 99% on O2 at 2l/min. Amiodarone gtt infusing at 0.5mg/min via Rt UA PICC. Physical assessment
completed as documented. Hygiene and comfort care provided. Call corona w/in pt reach and safe environment maintained.
[2024-04-15] MEDS: PROTONIX IV 40 MG IV (08:35)
[2024-04-15] MEDS: STERILE WATER FOR INJECTION 10 ML IV ×3 (08:35→23:35)
[2024-04-15] MEDS: CYMBALTA DELAYED RELEASE 60 MG PO (08:36)
[2024-04-15] MEDS: NSS (PRESERVATIVE FREE) 10 ML IV (08:36)
[2024-04-15] MEDS: ELIQUIS 5 MG PO ×2 (08:36→19:47)
[2024-04-15] MEDS: MAXIPIME 1000 MG IV ×3 (08:36→23:35)
[2024-04-15] MEDS: PACERONE 400 MG PO ×3 (08:43→21:14)
--- NOTE | 2024-04-15 08:45 | PTOTSP ---
Speech Language Pathology
Pt seen for dysphagia tx. Oral care completed with use of suction toothbrush. RN reported throat clearing at rest this morning. Pt stated she started to note nasal congestion last evening. Seen with med pass with RN with pills 1 at a time in
puree with liquid wash with no overt difficulty. Also seen with regular solids and thin liquids. Adequate mastication, bolus formation, and A-P transit noted with no oral residue. Occasional brief throat clear noted, same as noted at rest. No
overt coughing or any change in vocal quality. Vital signs stable with P.O. intake.
Recommend:
(1) Initiate regular solids/thin liquids
(2) Aspiration precautions: sit upright, slow rate
(3) Meds as tolerated
(4) ENGINEERING SPECIALIST to continue to follow. Can consider VSE if any difficulty with diet noted
[2024-04-15] MEDS: DAKIN'S SOLUTION 0.125% 1/4 STRENGTH 473 ML TOPICAL (09:45)
[2024-04-15] MEDS: SANTYL OINTMENT 1 APPLIC TOPICAL (10:00)
--- NOTE | 2024-04-15 10:30 | PTCARENOTE ---
Amiodarone gtt d/c'ed and PO Amiodarone give (see MAR). Pt remains in AFib w/ HR 100-110. Phone call received from pt's -updated on pt's present condition/plan of care and all questions answered. Pt advanced to Regular diet following visit
from Speech Therapy- pt declining breakfast at this time. Drummond catheter removed per protocol. [place] care completed. Pt unmonitored to MRI per order via transport stretcher. No changes noted or new complaints received.
--- NOTE | 2024-04-15 10:36 | CON.ID ---
Consultation
-
Date/Time Consultation Requested: 04/15/2024 07:56
Date/Time Consultation Performed: 04/15/2024 1034
Requesting Provider: Dr. Guerra
Performing Provider: Dr. Siegel
Reason for Consultation: Chronic left heel ulcer
Chief Complaint / Past History
History of Present Illness
Sussy Berry is an 83-year-old female being evaluated at the request of Dr. Guerra in regards to heel ulceration. History is obtained from chart review, along with patient interview.
The patient presented to [facility] on 04/12 after the family found her with increasing lethargy. According to reviewed notes the patient had reported she had been appearing lethargic over several weeks but it seems to be waxing and
waning. He brought her in on the secondary to its persistence. The patient reports that she has had a left heel ulceration for at least the past year. She previously was following with the [facility], but subsequently transitioned
to a wound center at [facility].
At admission, the patient was found to have a leukocytosis, and empiric antibiotics were initiated. Superficial wound cultures revealed growth of Klebsiella and Staph aureus. Infectious Diseases is asked to comment upon further antimicrobial
management.
Past History
Additional Past Medical History:
P A-fib
HTN
Dyslipidemia
IBS
Bilateral foot ulcers
Hx DVT right lower extremity
Migraine
Neuropathy
Additional Past Surgical History:
Hysterectomy
Left knee replacement
Right hip surgery
Left knee surgery
Back surgery
Stomach surgery
Allergy History:
Sulfa (Sulfonamide Antibiotics) Allergy (Verified 04/12/24 15:39)
Rash-2
Medications Reviewed: Yes
Current Antibiotics:
Cefepime 1 g IV every 8 hours
Metronidazole 500 mg IV every 8 hours
(Vancomycin in ER)
Social History
Tobacco: Non-Smoker
Alcohol: None
Drug: None
Personal:
Living: With Family
Employment: Retired
Family History
Family History: Not Pertinent
Review of Systems
Vital Signs
Temp Pulse Resp BP Pulse Ox
97.9 F 106 9 122/76 95
04/15/24 07:41 04/15/24 08:43 04/15/24 06:00 04/15/24 08:43 04/15/24 06:00
Physical Exam
Physical Exam
Constitutional: No Acute Distress, Comfortable, Chronically Ill and Non-toxic
Head: Normocephalic
Eyes: Pupils Equal, Pupils Round, No Conjunctival Hemorrhage and Sclera Anicteric
Cardiovascular: Irregular Rate and S1/S2; Negative S3/S4
Pulmonary: Clear; Negative Wheezes, Rales or Rhonchi
Gastrointestinal: Soft, Non Tender, Non Distended and Normal Bowel Sounds
Extremities: Edema; Negative Cyanosis or Erythema
Wound: Other (Left plantar heel ulcer noted. Mild slough in the base. No significant malodor or dermal gangrene noted. No periwound erythema. No erythema extending up leg.)
Neurological: Awake and Alert
Psychological: Calm
Lab / Diagnostic Study Results
04/15/24 03:13
04/15/24 03:13
Abs Immat Gran (auto) 0.1 10^3/uL (0-0.05) H 04/15/24 03:13
Absolute Neuts (auto) 7.7 10^3/uL (1.4-6.5) H 04/15/24 03:13
Absolute Lymphs (auto) 1.2 10^3/uL (1.2-3.4) 04/15/24 03:13
Absolute Monos (auto) 0.9 10^3/uL (0.1-0.6) H 04/15/24 03:13
Absolute Basos (auto) 0.0 10^3/uL (0-0.2) 04/15/24 03:13
Immature Gran % 1.2 % (0-0.5) H 04/15/24 03:13
Neutrophils % 76.3 % (42.2-75.2) H 04/15/24 03:13
Lymphocytes % 12.4 % (20.5-51.1) L 04/15/24 03:13
Monocytes % 8.5 % (1.7-9.3) 04/15/24 03:13
Eosinophils % 1.3 % (0-6) 04/15/24 03:13
Basophils % 0.3 % (0-2) 04/15/24 03:13
PT 24.2 Sec (11.4-14.6) H 04/14/24 04:18
INR 2.19 04/14/24 04:18
Lactic Acid Cancelled 04/13/24 07:30
Ur Squamous Epith Cells 11-15 /LPF (Few) 04/12/24 21:35
Microbiology Results
Micro:
04/13/24 11:09 Wound Culture - Preliminary
Heel - Left Klebsiella oxytoca
Staphylococcus aureus
Gram Stain - Preliminary
04/12/24 15:46 Blood Culture - Preliminary
Blood/Venous No Growth in 48 hours- Final report to follow
04/12/24 21:35 Urine Culture - Final
Urine
04/12/24 19:51 MRSA Screen - Final
Nose No Methicillin Resistant Staphylococcus aureus isolated.
Imaging:
04/15/2024 MRI bilateral feet: Suggestion of a wound lateral to the fifth metatarsophalangeal joint. No evidence for abscess collection. No evidence for adjacent osteomyelitis. No evidence for osteomyelitis involving the right foot. Diffuse
muscular atrophy. Degenerative changes as described.
04/12/2024 Plain film, left foot: A large soft tissue defect/ulceration along the plantar heel. No juan diego osseous erosions noted. No convincing radiographic evidence for active osteomyelitis. Diffuse demineralization noted. No acute fracture or
dislocation. Please see full dictation for additional detail.
Assessment / Plan
Left heel wound infection
Chronic left heel wound
-No evidence of osteomyelitis on imaging
Leukocytosis
- improved
General malaise
P A-fib
HTN
Dyslipidemia
IBS
Bilateral foot ulcers
Hx DVT right lower extremity
Migraine
Neuropathy
Recommendations:
Not clear if admission symptomatology can all be ascribed to the rather limited wound on the left heel. Positive cultures are noted, but given that the wound is open to the environment, this likely also reflects some degree of colonization.
Would continue with empiric cefepime for today. Discontinue further metronidazole.
Continue with local care to the left heel area. Given chronicity, this will likely take a prolonged time to heal. She will continue to need aggressive wound care following discharge.
Continue to monitor white count and temperature curve. Further recommendations regarding antibiotic selection and de-escalation as additional data is returned.
[2024-04-15] MEDS: TENORMIN 50 MG PO (12:10)
--- NOTE | 2024-04-15 12:27 | PTCARENOTE ---
Pt returned to room from MRI. Declined ordering lunch 'I'm really not hungry'. Kitchen asked to deliver non-par tray in attempt to encourage pt to eat. Pt taking sips of water and roxanne-lisa. Ultrasound updated on pt's PO slow intake. No additional
changes from previous assessment findings or new complaints received.
--- NOTE | 2024-04-15 14:45 | W.PN.NEPH.PH ---
Today's Communication / Plan
-
follow labs, prn lasix
Assessment/Plan
-
Assessment:
Septic shock 2/2 to UTI
Afib
JOYCE
Elevated trop
Plan:
- JOYCE likely in the setting of ATN (especially with documented hypotension)
- baseline cr around 1, peak 2.5, now at 1.2
monitor bladder scan off foely this am
bp stable off IVF
Afib-cards follows
old echo noted DCHF and valvular disease, pulm HTN
on O2, fine crackles ta bases, prn lasix
wt is also up from admit
adjust med with improving GFR
labs in am
-
-
Date of Service: April 15, 2024
CC / HPI / ROS
-
Chief Complaint:
JOYCE
History of Present Illness:
Cr peak 2.5, down to 1.2, bl 1
BP stable
MRI neg for osteo
wt is up
Review of Systems:
offers no cp or sob
on 2lit of O2
runny nose , known sinus problem
Labs
-
Labs:
WBC 10.0 10^3/uL (4.8-10.8) 04/15/24 03:13
RBC 3.40 10^6/uL (4.20-5.40) L 04/15/24 03:13
Hgb 9.7 g/dL (12.0-16.0) L 04/15/24 03:13
Hct 29.2 % (37.0-47.0) L 04/15/24 03:13
Plt Count 245 10^3/uL (130-400) 04/15/24 03:13
Sodium 131 mmol/L (135-145) L 04/15/24 03:13
Potassium 3.8 mmol/L (3.5-5.1) 04/15/24 03:13
Chloride 98 mmol/L (98-107) 04/15/24 03:13
Carbon Dioxide 26 mmol/L (22-30) 04/15/24 03:13
BUN 60 mg/dl (7-17) H 04/15/24 03:13
Creatinine 1.2 mg/dL (0.6-1.0) H 04/15/24 03:13
eGFR 45.19 04/15/24 03:13
Glucose 163 mg/dl (70-99) H 04/15/24 03:13
Calcium 8.7 mg/dl (8.4-10.2) 04/15/24 03:13
Phosphorus 3.5 mg/dl (2.5-4.5) 04/15/24 03:13
Muk-C-Otbtjwkjqwn Pept > 68141 pg/ml 04/12/24 15:11
Albumin 2.8 g/dl (3.5-5.0) L 04/14/24 04:18
Physical Exam
-
Vital Signs:
Vital Signs
Temp Pulse Resp BP Pulse Ox
97.9 F 114 15 138/91 98
04/15/24 11:30 04/15/24 12:10 04/15/24 10:00 04/15/24 12:10 04/15/24 10:00
Cardiovascular:: Irregular rate and rhythm
Respiratory:: Bilateral: Rales (at bases)
Lung Excursion:: Normal
Abdomen:: Nontender and Soft
Extremity Edema:: None: Bilateral:
Drummond Catheter: No
[2024-04-15] MEDS: TYLENOL 650 MG PO (15:23)
--- NOTE | 2024-04-15 15:32 | W.PN.POD ---
Today's Communication
Today's Communication
Arterial studies with NOMI values >1 TBI dampened
MRI reviewed, no evidence for OM or for abscess right or left foot
Wounds appear to be stable and improving, as result of absent protective sensation, I would recommend and will perform bedside debridement while here to remove devitalized tissue and continue present wound care.
I spoke at length >20 min with patient and her family that as result of her peripheral neuropathy and pressure that is being inadequately relieved to the wounds along with other co morbidities that healing these wounds will not be easy and will
require her to be NWB to the heel and offload the right foot when in bed. They state it is hard for her not to walk on the foot and she feels no pain, and is unable to toe-walk or wear an offloading shoe (and broke her femur with this device on) as
result of the peripheral neuropathy. With this information I explained I can't see how the wound would ever heal, but they will consider the optons (NWB in WC or ongoing wound with high probability of non-healing and OM)
Will follow and return 04/16/24 for bedside debridement
Assessment / Plan
-
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
2-Peripheral neuropathy of unknown etiology
3-sepsis
4-uti/JOYCE
5-anemia
6-poor nutrition
7-Afib- on anti coag
Subjective
Chief Complaint
sepsis/uti/chronic heel wound left heel and right forefoot
Subjective
Patient awake and alert with her and son at her side, no c/o pain to her right foot wound or left heel
Objective
Temp Pulse Resp BP Pulse Ox
97.9 F 112 14 132/88 95
04/15/24 11:30 04/15/24 15:23 04/15/24 15:00 04/15/24 15:23 04/15/24 15:00
04/15/24 03:13
04/15/24 03:13
Vital Signs and Lab results were reviewed.
MRI left heel: There is patchy increased STIR signal within the inferior and posterior calcaneus, and appears to be centered at the site of attachment of the plantar aponeurosis, and with only minimal decreased T1-weighted signal. These findings
very likely represents reactive marrow edema from plantar fasciitis. This would be very unlikely to represent changes of osteomyelitis, given the lack of significant decreased T1-weighted signal. Also, the soft tissue wound does not appear to extend
adjacent to the plantar aspect of the calcaneus.
MRI RIGHT FOOT: Suggestion of a wound lateral to the fifth metatarsophalangeal joint. No evidence for abscess collection. No evidence for adjacent osteomyelitis.No evidence for osteomyelitis involving the right foot. Diffuse muscular atrophy.
Degenerative changes as described.
Review of Systems
Review of Systems
Review of Systems: No Chills, No Nausea and No Skin Rash
Physical Exam
Physical Exam
General: No Apparent Distress and Conversant
Musculoskeletal: No Edema and Other (RLE is externally rotated)
Skin: Neurotrophic Ulcer (Left heel wound with increased granulation and necrosis at periphery and minimally to wound bed. Right foot 5th met head-punched out appearing wound that is deepp to capsule/bone, no odor or purulence)
Neuro: AO x 3 and Protective Sensation Absent
Vascular: Capillary Refill Delayed and Skin Temperature Warm to Cool
Dorsalis Pedis: Intact
Posterior Tibialis: Diminished
--- NOTE | 2024-04-15 16:10 | PTCARENOTE ---
Pt has been resting quietly w/ and son here to visit. Medicated w/ Tylenol at pt's request for c/o headache (see MAR). Report called to 'Mervat WATERS'. Pt transferred via bed to 401-2 w/ personal belongings. No new complaints or changes noted
prior to transfer.
--- NOTE | 2024-04-15 18:14 | PTCARENOTE ---
Received patient from unit at 1630. Pt oriented to room. Drummond discontinued in unit at 1030 am today. Pt has not voided, bladder scanned patient at [address] Guerar and Dr. John jefferson coverage made aware. Made patient
comfortable. Cont to assess patient status .
[2024-04-16] VITALS (7 sets, daily range): BP systolic 117–139; BP diastolic 69–83; PULSE 84
[2024-04-16 05:53] LABS: INR 2.38; PT 26.3 Sec (11.4-14.6)
[2024-04-16 05:58] LABS: ALT (SGPT) 196 U/L (0-35); AST (SGOT) 177 U/L (14-36); Alkaline Phosphatase 126 U/L (38-126); Blood Urea Nitrogen 57 mg/dl (7-17); Calcium 8.9 mg/dl (8.4-10.2); Carbon Dioxide 29 mmol/L (22-30); Chloride 98 mmol/L (98-107); Estimated Creatinine Clearance 40 ml/min; Glucose 111 mg/dl (70-99); Magnesium 1.9 mg/dl (1.6-2.3); Phosphorus 3.3 mg/dl (2.5-4.5); Potassium 4.1 mmol/L (3.5-5.1); Sodium 133 mmol/L (135-145); Total Protein 5.9 g/dl (6.3-8.2); eGFR 56.25
[2024-04-16] MEDS: PACERONE 400 MG PO ×3 (09:35→21:07)
[2024-04-16] MEDS: CYMBALTA DELAYED RELEASE 60 MG PO (09:36)
[2024-04-16] MEDS: ELIQUIS 5 MG PO ×2 (09:36→20:41)
[2024-04-16] MEDS: TENORMIN 50 MG PO (09:36)
[2024-04-16] MEDS: MAXIPIME 1000 MG IV (09:36)
[2024-04-16] MEDS: PROTONIX IV 40 MG IV (09:37)
[2024-04-16] MEDS: FLUSH (NSS) 2 FLUSH IV (09:37)
[2024-04-16] MEDS: STERILE WATER FOR INJECTION 10 ML IV (09:37)
[2024-04-16] MEDS: NSS (PRESERVATIVE FREE) 10 ML IV (09:38)
--- NOTE | 2024-04-16 10:40 | W.PN.HOSP.TC ---
Today's Communication/Plan
-
Vascular surgery consult
Podiatry follow-up
Assessment / Plan
Assessment / Plan
General: Acutely ill. Improved appearance overall.
HEENT: Normocephalic, Atraumatic and Dry Mucous Membranes
Respiratory: Decreased breath sounds bilateral; Clear to Auscultation; Negative Wheezes, Rales or Rhonchi
Cardiac: Irregular rate and rhythm, tachycardic but less, and S1/S2, systolic murmur
GI: Soft, Nontender and Nondistended
Musculoskeletal: Left heel wound with some erythema, granulation, scant purulent. Also right fifth digit wound with purulence. No Clubbing, No Cyanosis and No Edema
Neuro: Alert oriented today, still with generalized weakness and mild lethargy but much improved.
Acute metabolic encephalopathy -due to septic shock, critical illness, multiorgan failure. Improving mental status.
Septic shock - due to deep left heel ulcer. Shock resolved. Leukocytosis resolved. Afebrile. Blood cultures negative. Wound culture shows Klebsiella, MSSA. Currently on cefepime. ID following.
Dysphagia -improved. Cleared for regular diet by speech therapy.
Acute hypoxic respiratory insufficiency -currently on 2 L nasal, oxygen, wean off as able.
Atrial fibrillation with rapid ventricular response -due to critical illness. Appreciate cardiology input. Atenolol resumed. Amiodarone dose reduced. Still with fast rates.
JOYCE -due to septic shock, ATN. Renal function improving. Nephrology following. Furosemide and lisinopril on hold since admission.
Drummond removed. Last bladder scan 65 cc.
Hyponatremia -stable, 133.
Elevated troponin:
Elevated troponin likely due to acute non-ischemic myocardial injury due to sepsis. Troponin trending down.
Acute on chronic anemia - hemoglobin 9.7 yesterday, admission hemoglobin 11.2. Baseline hemoglobin appears to be 10-11 range. No evidence of bleeding clinically. Suspect acute anemia due to acute illness. Unclear etiology of chronic normocytic
anemia. Will need further evaluation as an outpatient.
Family tells me that is in the [place] marrow biopsy for suspicions of diagnosis of non-Hodgkin lymphoma
Chronic heart failure preserved EF -weight is creeping up, admission weight was 67 kg, 72 kg yesterday. She was on furosemide 20 mg twice daily prior to admission. Check weight today.
Chronic left foot heel neurotrophic wound -podiatry input noted. Awaiting bedside debridement today. NOMI results noted. Left TBI severely reduced at 0. Findings may indicate small vessel disease. Right TBI moderately reduced. Will get vascular
surgery opinion.
MRI does not show osteomyelitis, but does show significant plantar fasciitis with adjacent patchy reactive marrow edema.
Chronic right foot fifth metatarsal wound -MRI does not show abscess or osteomyelitis.
Full code
Dispo -SNF when medically stable for discharge.
Updated family at the bedside.
.
Anticipated Discharge: > 48 hours
Subjective/Interval History
-
Date of Service: April 16, 2024
Patient seen and examined. Complaining of poor sleep due to loud roommate.
Objective Data
-
Labs:
Laboratory Results
04/16/24
05:12
PT 26.3 H
INR 2.38
APTT 36.0 H
Sodium 133 L
Potassium 4.1
Chloride 98
Carbon Dioxide 29
BUN 57 H
Creatinine 1.0
Glucose 111 H
Calcium 8.9
Total Bilirubin 1.0
AST 177 H
ALT 196 H
Alkaline Phosphatase 126
Vital Signs:
Vital Signs
Temp Pulse Resp BP Pulse Ox
97.7 F 110 20 120/82 97
04/16/24 08:01 04/16/24 08:01 04/16/24 08:01 04/16/24 09:36 04/16/24 08:01
I&O
04/15/24 04/16/24 04/17/24
06:59 06:59 06:59
Intake Total 600.8 / 617.5 813.4 / 813.4
Output Total 604 / 654 565 / 565
Balance -3.2 / -36.5 248.4 / 248.4
Review of Systems
-
History Source: Patient
All other systems: Reviewed and negative
--- NOTE | 2024-04-16 11:20 | VATNOTE ---
04/16 consulted Hospitalizes about discontinuing PICC. Pending ID consult first. will reassess in 24hrs.
--- NOTE | 2024-04-16 12:44 | CON.VAS ---
Consultation
Consultation Request
Date/Time Consultation Performed: 04/16/24 1100
Requesting Provider: Hospitalist
Performing Provider: Caitlin Kearns, ANA-C for Fabian Streeter MD
Reason for Consultation: Left heel wound
Medical History
-
Chief Complaint: Chronic Left heel wound
History of Present Illness:
This is an 83 year old female with a significant past medical history for atrial fibrillation, hypertension, hyperlipidemia, IBS, DVT, migraine, neuropathy, severe pulmonary hypertension, moderate mitral regurgitation, moderate aortic insufficiency,
and mild aortic stenosis who presented to [facility] on 04/12/2024 with reports of altered mental status and generalized weakness, with suspected sepsis and acute kidney injury. Of note she endorses a left heel and right foot fifth digit
chronic wound for roughly over a year prompting vascular surgery consult. Patient denies any lower extremity revascularization procedures. Denies any known peripheral arterial disease. Denies any coronary artery disease. Denies claudication or
rest pain but does note she lives a very sedentary lifestyle.
Past Medical History
Past Medical History: Arrhythmias (atrial fibrillation ), HTN, Hypercholesterolemia, Valvular Disease and Other (IBS, Bilateral foot ulcers, DVT, migraine, neuropathy, severe pulmonary hypertension, moderate mitral regurgitation, moderate aortic
insufficiency, mild aortic stenosis)
Past Surgical History: Gynecological (hysterectomy ) and Other (Left knee replacement Right hip surgery Left knee surgery Back surgery Stomach surgery)
Social History
Tobacco: Non-Smoker
Personal:
Living: With Family
Allergies / Home Medications
Allergy/AdvReac Type Severity Reaction Status Date / Time
Sulfa (Sulfonamide Allergy Rash-1961 Verified 04/12/24 15:39
Antibiotics)
sulfamethoxazole Allergy Rash-1961 Verified 04/12/24 15:39
trimethoprim Allergy Rash-1961 Verified 04/12/24 15:39
�Medication �Instructions �Recorded �Confirmed �Type
atenolol 50 mg tablet 50 mg PO DAILY Blood pressure 08/01/16 04/12/24 History
atorvastatin 20 mg tablet 20 mg PO QPM High cholesterol 08/01/16 04/12/24 History
acetaminophen 500 mg tablet 1,000 mg PO TIDPRN PRN mild pain 06/01/22 04/12/24 History
(Tylenol Extra Strength)
lisinopril 40 mg tablet 40 mg PO DAILY Blood pressure 07/24/22 04/12/24 History
pregabalin 100 mg capsule 100 mg PO HS Pain 07/24/22 04/12/24 History
duloxetine 60 mg capsule,delayed 60 mg PO DAILY Pain 09/30/22 04/12/24 History
release
apixaban 5 mg tablet (Eliquis) 5 mg PO BID Blood clot 04/12/24 04/12/24 History
prevention/tx
furosemide 20 mg tablet (Lasix) 20 mg PO BID Fluid 04/12/24 04/12/24 History
Retention/Swelling
lisinopril 20 mg tablet 20 mg PO QPM Blood Pressure 04/12/24 04/12/24 History
Review of Systems
-
History Source: Patient
Constitutional: Reports Fatigue
EENT: Reports No Symptoms
Respiratory: Reports No Symptoms
Cardiac: Reports No Symptoms
Vascular: Reports Numbness (chronic neuropathy) and Tingling (chronic neuropathy); Denies Leg Pain / Claudication
Abdomen/GI: Reports No Symptoms
: Reports No Symptoms
Musculoskeletal: Reports Edema (BL LE trace edema )
Skin: Reports Other
Neurological: Reports No Symptoms
Endocrine: Reports No Symptoms
Physical Exam
Vital Signs
Temp Pulse Resp BP Pulse Ox
97.9 F 110 20 122/69 97
04/16/24 11:43 04/16/24 11:43 04/16/24 11:43 04/16/24 11:43 04/16/24 11:43
Lab Results
04/15/24 03:13
04/16/24 05:12
Troponin I 0.606 ng/ml H* 04/13/24 12:56
Wde-V-Rptlwkywkjf Pept > 98437 pg/ml 04/12/24 15:11
Physical Exam
General: No Apparent Distress and Comfortable
HEENT: Normocephalic, Anicteric and Atraumatic
Respiratory: Non Labored Respirations
Cardiac: Negative JVD
GI: Soft, Non Tender and Non Distended
Musculoskeletal: Edema (trace BL)
Skin: Warm and Other (Feet are both warm and pink and well-perfused. Wounds as noted in wound care pictures.)
Neuro: AO x 3
Psych: Calm
Pulses: Bilateral Femoral: +2, Bilateral Popliteal: +2, Bilateral Dorsalis Pedis: +2 and Bilateral Posterior Tibial: +1
Assessment / Plan
-
Assessment: 83 year old female with chronic left heel wound and no evidence of significant arterial insufficiency in treatable vessels based on exam and noninvasive studies.
Plan:
She may have small vessel disease (at the level of the digital artery etc.). Likely not much to render from a revascularization perspective for these. Discussed that for completeness sake could perform arteriogram, but would favor not doing that
at this time given that she is just recovering from JOYCE. In addition, I have a low suspicion that she has disease (arterial) that is amenable to intervention. Therefore would recommend local wound care, aggressive debridement as needed. Will
follow-up in the office in the next 2 to 4 weeks. If continued nonhealing then can pursue arteriography.
I performed this shared service with the attending. I evaluated the patient [id number] and have entered clinical documentation as shown in the encounter note. I performed the following component(s): history and physical exam. Note that medical
decision making is not final until attested by vascular attending.
--- NOTE | 2024-04-16 13:19 | W.PN.CD ---
Today's Communication / Plan
-
Cont amio
Stop atenolol, start metoprolol
Lasix likely tomorrow
Impression / Plan
-
Septic Shock: improved
-this diagnosis is threat to life
-JOYCE improved
-no longer on pressors
-on IV abx
-source is left foot ulcer- MRI planned for today
-ID consulted
AFIB with RVR: type, onset unknown
-this is in setting of acute illness as above. She had one episode of documented AFIB in the past.
- PO amio for now, stop atenolol, start metoprolol XL
-continue Eliquis for OAC
-update echo
-TSH 03/13/24 2.15
HFpEF, chronic:
-on lasix as OP, held now with JOYCE, sepsis, restart likely tomorrow
-monitor volume
-Echo 10/24/23: Normal left ventricular systolic function. Left ventricular ejection fraction is 60-65%. Stage II diastolic dysfunction. Moderate mitral regurgitation. Mild aortic stenosis. Peak/mean gradients across the aortic valve are 28/15 mmHg
respectively, calculated DAMON is 1.9cm2. Moderate aortic regurgitation. Enlarged right ventricular size. Normal right ventricular systolic function. Moderate tricuspid regurgitation. Severely elevated PASP. Estimated pulmonary artery pressure of 69
mmHg assuming a right atrial pressure of 3 mmHg.
Abnormal troponin:
-acute non-ischemic myocardial injury in setting of acute illness with septic shock
Physical Exam
Vital Signs/Labs
Vital Signs
Temp Pulse Resp BP Pulse Ox
97.9 F 110 20 122/69 97
04/16/24 11:43 04/16/24 11:43 04/16/24 11:43 04/16/24 11:43 04/16/24 11:43
04/15/24 04/16/24 04/17/24
06:59 06:59 06:59
Actual Weight 159 lb 6.307 oz
04/15/24 03:13
04/16/24 05:12
PT 26.3 Sec (11.4-14.6) H 04/16/24 05:12
INR 2.38 04/16/24 05:12
APTT 36.0 Sec (23.4-35.0) H 04/16/24 05:12
Magnesium 1.9 mg/dl (1.6-2.3) 04/16/24 05:12
04/12/24
15:11
Sjb-X-Obztmysqjhe Pept > [id number]
LAB Results
04/13/24
12:56
Troponin I 0.606 H*
Physical Exam
Constitutional: Other (tired appearing)
EENT: Anicteric
Cardiovascular: Rhythm/rate is irregular and Pedal edema present
Respiratory: Respiratory effort normal and Lungs clear to auscul.
GI: Soft
Neuro/Psych: AO x 3
Data Reviewed
-
Date of Service: April 16, 2024
EKG: Tracing Personally Visualized and interpreted (af)
Echo: Report Reviewed by me
Labs: Labs Reviewed by me
[2024-04-16] MEDS: DAKIN'S SOLUTION 0.125% 1/4 STRENGTH 20 ML TOPICAL (13:20)
[2024-04-16] MEDS: SANTYL OINTMENT 1 APPLIC TOPICAL (13:20)
--- NOTE | 2024-04-16 13:46 | W.PN.UPDATE ---
Update Note
Progress Note Update
Seen and examined with ANA Mckinney and ANA Kearns. Full consultation to follow. Briefly 83-year-old female with history of hypertension, hyperlipidemia, history of DVT/PE who presented with mental status changes and generalized weakness. Some concern
for sepsis based on documentation. In addition she had acute kidney injury noted. On admission her white blood cell count was 17,000 with lactate of 4.7.
Presumed possible UTI source of sepsis.
She has history of chronic left heel wound. Also wound on the right forefoot.
Patient denies any lower extremity revascularization procedures. Denies any known peripheral arterial disease.
Denies any coronary artery disease.
On exam/she is awake and alert. Head is normocephalic and atraumatic. Eyes are anicteric. Neck is soft jugular venous distention. 2+ upper extremity radial pulses palpable bilaterally. Breathing is unlabored. Abdomen is soft, nondistended,
nontender. Lower extremity with 2+ femoral and popliteal pulses palpable laterally. 1+/2+ DP pulses palpable bilaterally. Feet are both warm and pink and well-perfused. Wounds as noted in wound care pictures.
Noninvasive studies reviewed. Bilateral ABIs within normal limits. TBI is decreased especially on the left side.
Plan/ No evidence of significant arterial insufficiency in treatable vessels based on exam and noninvasive studies. She may have small vessel disease (at the level of the digital artery etc.). Likely not much to render from a revascularization
perspective for these. Discussed that for completeness sake could perform arteriogram, but would favor not doing that at this time given that she is just recovering from JOYCE. In addition, I have a low suspicion that she has disease (arterial) that
is amenable to intervention. Therefore would recommend local wound care, aggressive debridement as needed. Will follow-up in the office in the next 2 to 4 weeks. If continued nonhealing then can pursue arteriography.
--- NOTE | 2024-04-16 14:36 | W.PN.ID1 ---
Date of Service
Date of Service: April 16, 2024
Today's Communication
Narrow to cefdinir.
Assessment / Plan
Left heel wound infection
Chronic left heel wound
-No evidence of osteomyelitis on imaging
Leukocytosis
- improved
General malaise
P A-fib
HTN
Dyslipidemia
IBS
Bilateral foot ulcers
Hx DVT right lower extremity
Migraine
Neuropathy
Recommendations:
Not clear if admission symptomatology can all be ascribed to the rather limited wound on the left heel. Positive cultures are noted, but given that the wound is open to the environment, this likely also reflects some degree of colonization.
Narrow to oral cefdinir for an additional 4 days of therapy.
Continue with local care to the left heel area. Given chronicity, this will likely take a prolonged time to heal. She will continue to need aggressive wound care following discharge.
Continue to monitor white count and temperature curve. Further recommendations regarding antibiotic selection and de-escalation as additional data is returned.
Chief Complaint
-: Other (Bilateral foot wounds.)
Subjective / Review of Systems
Review of Systems: No Fever and No Chills
Vital Signs / Physical Exam
Vital Signs
Vital Signs
Temp Pulse Resp BP Pulse Ox
97.9 F 110 20 122/69 97
04/16/24 11:43 04/16/24 11:43 04/16/24 11:43 04/16/24 11:43 04/16/24 11:43
Physical Exam
Constitutional: No Acute Distress, Comfortable, Chronically Ill and Non-toxic
Eyes: No Conjunctival Hemorrhage and Sclera Anicteric
Cardiovascular: Regular Rate and S1/S2; Negative S3/S4
Pulmonary: Clear; Negative Wheezes or Rales
Extremities: Edema; Negative Cyanosis or Erythema
Wound: Other (Left heel ulceration dressed. Right lateral foot ulceration dressed. No periwound erythema.)
Neurological: Awake and Alert
Psychological: Calm
Objective Data
Lab Data
Lab Results
04/15/24 03:13
04/16/24 05:12
PT 26.3 Sec (11.4-14.6) H 04/16/24 05:12
INR 2.38 04/16/24 05:12
APTT 36.0 Sec (23.4-35.0) H 04/16/24 05:12
Estimated Creat Clear 40 ml/min 04/16/24 05:12
Lactic Acid Cancelled 04/13/24 07:30
Total Bilirubin 1.0 mg/dl (0.2-1.3) 04/16/24 05:12
AST 177 U/L (14-36) H 04/16/24 05:12
ALT 196 U/L (0-35) H 04/16/24 05:12
Alkaline Phosphatase 126 U/L (38-126) 04/16/24 05:12
Most recent labs reviewed.
Micro Results:
04/13/24 11:09 Wound Culture - Final
Heel - Left Klebsiella oxytoca
S aureus-Methicillin Sensitive
Gram Stain - Final
04/12/24 15:46 Blood Culture - Preliminary
Blood/Venous No Growth in 72 hours- Final report to follow
04/12/24 21:35 Urine Culture - Final
Urine
04/12/24 19:51 MRSA Screen - Final
Nose No Methicillin Resistant Staphylococcus aureus isolated.
Imaging:
04/15/2024 MRI bilateral feet: Suggestion of a wound lateral to the fifth metatarsophalangeal joint. No evidence for abscess collection. No evidence for adjacent osteomyelitis. No evidence for osteomyelitis involving the right foot. Diffuse
muscular atrophy. Degenerative changes as described.
04/12/2024 Plain film, left foot: A large soft tissue defect/ulceration along the plantar heel. No juan diego osseous erosions noted. No convincing radiographic evidence for active osteomyelitis. Diffuse demineralization noted. No acute fracture or
dislocation. Please see full dictation for additional detail.
--- NOTE | 2024-04-16 16:26 | W.PN.NEPH.PH ---
Today's Communication / Plan
-
follow labs
prn lasix
Assessment/Plan
-
Assessment:
Septic shock 2/2 to UTI
Afib
JOYCE
Elevated trop
Plan:
- JOYCE likely in the setting of ATN (especially with documented hypotension)
- baseline cr around 1, peak 2.5, now at 1.
monitor bladder scan , [id number]
bp stable
Afib-cards follows, meds adjusted
old echo noted DCHF and valvular disease, pulm HTN
on O2, cards plans lasix from tomorrow
labs in am
will s/o , call with ?s
-
-
Date of Service: April 16, 2024
CC / HPI / ROS
-
Chief Complaint:
JOYCE
History of Present Illness:
Cr peak 2.5, down to 1., bl 1
BP stable
MRI neg for osteo
afib meds adjusted per cards
Review of Systems:
offers no cp or sob
on 2lit of O2
Labs
-
Labs:
WBC 10.0 10^3/uL (4.8-10.8) 04/15/24 03:13
RBC 3.40 10^6/uL (4.20-5.40) L 04/15/24 03:13
Hgb 9.7 g/dL (12.0-16.0) L 04/15/24 03:13
Hct 29.2 % (37.0-47.0) L 04/15/24 03:13
Plt Count 245 10^3/uL (130-400) 04/15/24 03:13
Sodium 133 mmol/L (135-145) L 04/16/24 05:12
Potassium 4.1 mmol/L (3.5-5.1) 04/16/24 05:12
Chloride 98 mmol/L (98-107) 04/16/24 05:12
Carbon Dioxide 29 mmol/L (22-30) 04/16/24 05:12
BUN 57 mg/dl (7-17) H 04/16/24 05:12
Creatinine 1.0 mg/dL (0.6-1.0) 04/16/24 05:12
eGFR 56.25 04/16/24 05:12
Glucose 111 mg/dl (70-99) H 04/16/24 05:12
Calcium 8.9 mg/dl (8.4-10.2) 04/16/24 05:12
Phosphorus 3.3 mg/dl (2.5-4.5) 04/16/24 05:12
Itb-M-Dnojwblfngh Pept > 92932 pg/ml 04/12/24 15:11
Albumin 3.0 g/dl (3.5-5.0) L 04/16/24 05:12
Physical Exam
-
Vital Signs:
Vital Signs
Temp Pulse Resp BP Pulse Ox
97.6 F 116 22 126/70 94
04/16/24 15:14 04/16/24 15:14 04/16/24 15:14 04/16/24 15:14 04/16/24 15:14
Cardiovascular:: Irregular rate and rhythm
Respiratory:: Bilateral: CTA (decreased)
Lung Excursion:: Normal
Abdomen:: Nontender and Soft
Extremity Edema:: None: Bilateral:
Drummond Catheter: No
--- NOTE | 2024-04-16 17:35 | W.PN.POD ---
Today's Communication
Today's Communication
Wounds evaluated and are looking better. Discussed debridement of wound today at bedside and patient has agreed. The wound was cleansed to the right lateral foot and the left heel.
Using sterile 11 blade and forceps as well as dissecting scissors the wounds were sharply excisionally debrided into subcutaneous tissue and fascia. There was minimal to no bleeding, wound was cleansed with saline and wound was repacked with 1/4 str
dakins solution to the left heel and santyl right lateral forefoot.
Discussed at length with Sussy that the feet must be offloaded at all times to allow healing, also recommend increased protein intake or supplementation with ensure as well as Omkar to boost wound healing. Appreciate Dr Streeter's input re vascular
status.
Assessment / Plan
-
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
2-Peripheral neuropathy of unknown etiology
3-sepsis
4-uti/JOYCE
5-anemia
6-poor nutrition-
7-Afib- on anti coag
Subjective
Chief Complaint
left heel wound/right 5th met wound/sepsis
Subjective
Sitting up in NAD
Objective
Temp Pulse Resp BP Pulse Ox
97.6 F 116 22 126/70 94
04/16/24 15:14 04/16/24 15:14 04/16/24 15:14 04/16/24 15:14 04/16/24 15:14
04/15/24 03:13
04/16/24 05:12
Vital Signs and Lab results were reviewed.
Inspection: Cellulitis (none)
Review of Systems
Review of Systems
Review of Systems: No Fever, No Chills, No Headache and No Nausea
Physical Exam
Physical Exam
General: No Apparent Distress, Comfortable and Conversant
Musculoskeletal: Edema, Left Lower Extrem
Skin: Neurotrophic Ulcer (right 5th met head and left heel ulcers are full thickness into deep fascia, fibrogranular wound bed, no purulence or malodor, keratosis at periphery)
Neuro: AO x 3 and Protective Sensation Absent
Vascular: Capillary Refill Delayed, Pedal Hair Absent and Skin Temperature Warm to Cool
Dorsalis Pedis: Diminished
Posterior Tibialis: Diminished
[2024-04-16] MEDS: OMNICEF 300 MG PO (20:41)
[2024-04-16] MEDS: TOPROL XL 25 MG PO (20:41)
[2024-04-16] MEDS: TYLENOL 650 MG PO (21:00)
[2024-04-17] VITALS (7 sets, daily range): BP systolic 94–137; BP diastolic 53–77; BMI 29.0
[2024-04-17 06:53] LABS: ALT (SGPT) 163 U/L (0-35); AST (SGOT) 133 U/L (14-36); Albumin 3.2 g/dl (3.5-5.0); Alkaline Phosphatase 123 U/L (38-126); Blood Urea Nitrogen 59 mg/dl (7-17); Calcium 9.1 mg/dl (8.4-10.2); Carbon Dioxide 27 mmol/L (22-30); Chloride 99 mmol/L (98-107); Estimated Creatinine Clearance 37 ml/min; Glucose 109 mg/dl (70-99); Potassium 4.6 mmol/L (3.5-5.1); Sodium 137 mmol/L (135-145); Total Bilirubin 1.3 mg/dl (0.2-1.3); Total Protein 5.8 g/dl (6.3-8.2); eGFR 50.17
--- NOTE | 2024-04-17 08:16 | W.PN.CD ---
Today's Communication / Plan
-
amiodarone and atenolol stopped
titrate Toprol XL for rate control: now at 50mg bid
resume lasix at 20mg daily, and trend Cr
Impression / Plan
-
Septic Shock: improved
-JOYCE improved
-no longer on pressors
-on IV abx
-source is left foot ulcer
AFIB with RVR: becoming persistent
-this is in setting of acute illness as above. She had one episode of documented AFIB in the past.
-was using amiodarone for rate when BP low: BP better
-amiodarone and atenolol stopped
-titrate Toprol XL: now at 50mg bid
-continue Eliquis for OAC
-can assess for rhythm control is remains in A fib at office follow up after recovery from hospitalization
HFpEF, chronic: with valvular HD
-on lasix as OP: resume today at 20mg daily
-trend Cr with recent JOYCE
-Echo 04/15/24: EF 55%,moderate AR/, moderate MR, mod TR, PASP 70s
Abnormal troponin:
-acute non-ischemic myocardial injury in setting of acute illness with septic shock
Physical Exam
Vital Signs/Labs
Vital Signs
Temp Pulse Resp BP Pulse Ox
97.3 F 105 16 107/74 92
04/17/24 03:20 04/17/24 03:20 04/17/24 03:20 04/17/24 03:20 04/17/24 03:20
04/16/24 04/17/24 04/18/24
06:59 06:59 06:59
Actual Weight 71.838 kg
04/15/24 03:13
04/17/24 06:27
PT 26.3 Sec (11.4-14.6) H 04/16/24 05:12
INR 2.38 04/16/24 05:12
APTT 36.0 Sec (23.4-35.0) H 04/16/24 05:12
Magnesium 1.9 mg/dl (1.6-2.3) 04/16/24 05:12
04/12/24
15:11
Xnb-C-Yzilhiketzn Pept > 32183
Physical Exam
Constitutional: No acute distress
EENT: Moist mucous membranes
Cardiovascular: Rhythm/rate is irregular, Pedal edema present, JVD present and Systolic murmur present
Respiratory: Respiratory effort normal and Lungs clear to auscul.
GI: Soft and Distention absent
Data Reviewed
-
Date of Service: April 17, 2024
EKG: Ordered by me (Tele: A fib 110s)
Echo: Report Reviewed by me
Labs: Labs Reviewed by me
--- NOTE | 2024-04-17 09:36 | W.PN.HOSP.TC ---
Addendum entered and electronically signed by Jose Angel Guerra DO 04/17/24 14:42:
Patient vomited undigested food according to nurse before noon time today. IV Compazine administered, 5 mg. Patient reexamined and currently sleeping, likely sedated due to the Compazine. Minimal abdominal distention but nontender.
Obstruction series does not show obstruction. I do not agree with the diagnosis of pneumonia reported by the radiologist.
No bowel movement since admission. Bowel regimen ordered. Change diet to clear liquids. Gentle IV fluids for 1 L. Discussed with nursing.
Original Note:
Today's Communication/Plan
-
Continue current care
Assessment / Plan
Assessment / Plan
General: Awake but not alert. No complaints.
HEENT: Normocephalic, Atraumatic and Dry Mucous Membranes
Respiratory: Decreased breath sounds bilateral; Clear to Auscultation; Negative Wheezes, Rales or Rhonchi
Cardiac: Irregular rate and rhythm, tachycardic but less, and S1/S2, systolic murmur
GI: Soft, Nontender and Nondistended
Musculoskeletal: Left heel wound with some erythema, granulation, scant purulent. Also right fifth digit wound with purulence. No Clubbing, No Cyanosis and No Edema
Neuro: Alert oriented today, still with generalized weakness and mild lethargy but much improved.
Skin: Cyanotic fingertips bilaterally and toes bilaterally
Acute metabolic encephalopathy -due to septic shock, critical illness, multiorgan failure. Improving mental status but still somewhat lethargic.
Septic shock - due to deep left heel ulcer. Shock resolved. Leukocytosis resolved. Afebrile. Blood cultures negative. Wound culture shows Klebsiella, MSSA. Currently on cefdinir. ID following.
Dysphagia -improved. Cleared for regular diet by speech therapy.
Acute hypoxic respiratory insufficiency -currently on 2 L nasal, oxygen, wean off as able.
Atrial fibrillation with rapid ventricular response -due to critical illness. Appreciate cardiology input. Still with fast rates. Amiodarone and atenolol discontinued, titrate Toprol-XL per cardiology. Continue Eliquis.
JOYCE -due to septic shock, ATN. Renal function improving. Nephrology following. Lisinopril on hold.
Drummond removed. Last bladder scan 65 cc.
Hyponatremia -improved, 137.
Elevated troponin:
Elevated troponin likely due to acute non-ischemic myocardial injury due to sepsis. Troponin trending down.
Acute on chronic anemia - Baseline hemoglobin appears to be 10-11 range. Recheck hemoglobin. No evidence of bleeding clinically. Suspect acute anemia due to acute illness. Unclear etiology of chronic normocytic anemia. Will need further
evaluation as an outpatient.
Family tells me that is in the works of bone marrow biopsy for suspicions of diagnosis of non-Hodgkin lymphoma
Chronic heart failure preserved EF -weight is creeping up, admission weight was 67 kg, 72 kg yesterday. She was on furosemide 20 mg twice daily prior to admission. Furosemide resumed at 20 mg once daily by cardiology.
Chronic left foot heel neurotrophic wound -podiatry input noted. Underwent bedside debridement by podiatry on 04/16.
NOMI results noted. Left TBI severely reduced at 0. Findings may indicate small vessel disease. Right TBI moderately reduced. Appreciate vascular surgery input. Recommend outpatient follow-up.
MRI does not show osteomyelitis, but does show significant plantar fasciitis with adjacent patchy reactive marrow edema.
Chronic right foot fifth metatarsal wound -MRI does not show abscess or osteomyelitis.
Digital cyanosis -patient states she has had this for several months. Suspect underlying Raynaud's phenomena. Treat supportively with warming.
Full code
Dispo -SNF when medically stable for discharge.
.
Anticipated Discharge: 24 - 48 hours
Subjective/Interval History
-
Date of Service: April 17, 2024
Patient seen and examined. No complaints.
Objective Data
-
Labs:
Laboratory Results
04/17/24
06:27
Sodium 137
Potassium 4.6
Chloride 99
Carbon Dioxide 27
BUN 59 H
Creatinine 1.1 H
Glucose 109 H
Calcium 9.1
Total Bilirubin 1.3
AST 133 H
ALT 163 H
Alkaline Phosphatase 123
Vital Signs:
Vital Signs
Temp Pulse Resp BP Pulse Ox
97.5 F 107 20 126/61 90
04/17/24 07:30 04/17/24 07:30 04/17/24 07:30 04/17/24 07:30 04/17/24 07:30
I&O
04/16/24 04/17/24 04/18/24
06:59 06:59 06:59
Intake Total 813.4 / 813.4 960 / 960
Output Total 565 / 565
Balance 248.4 / 248.4 960 / 960
Review of Systems
-
History Source: Patient
All other systems: Reviewed and negative
[2024-04-17] MEDS: PACERONE PO (10:47)
[2024-04-17] MEDS: CYMBALTA DELAYED RELEASE 60 MG PO (10:47)
[2024-04-17] MEDS: OMNICEF 300 MG PO ×2 (10:47→20:43)
[2024-04-17] MEDS: TOPROL XL PO (10:48)
[2024-04-17] MEDS: PROTONIX IV 40 MG IV (10:49)
[2024-04-17] MEDS: ELIQUIS 5 MG PO ×2 (10:49→20:43)
[2024-04-17] MEDS: TOPROL XL 50 MG PO (10:49)
[2024-04-17] MEDS: LASIX 20 MG PO (10:49)
[2024-04-17] MEDS: FLUSH (NSS) 2 FLUSH IV ×2 (10:50→11:36)
[2024-04-17] MEDS: NSS (PRESERVATIVE FREE) 10 ML IV (10:50)
[2024-04-17] MEDS: DAKIN'S SOLUTION 0.125% 1/4 STRENGTH 20 ML TOPICAL (10:56)
[2024-04-17] MEDS: SANTYL OINTMENT 1 APPLIC TOPICAL (10:57)
--- NOTE | 2024-04-17 11:27 | PTCARENOTE ---
patient with poor appetite. encouraged patient to eat to promote wound healing. patient give a few bites of oatmeal and then vomited large amount of undigested food, oatmeal and stewed tomatoes which she had for dinner last evening. patient
cleansed and mouth care given. Dr kimbrough made aware and orderes received for compazine and abd xray. plan of care ongoing.
[2024-04-17] MEDS: COMPAZINE 5 MG IV (11:35)
--- NOTE | 2024-04-17 16:00 | VATNOTE ---
assessed need for picc; spoke with dr. bergeron and pt not on IV antibiotics going forward; however spoke with PCNAmee and peripheral IV site is now infiltrated and pt has extremely poor peripheral access as this VAT RN attempted to establish
another peripheral IV site. Unable to. In agreement with PCN will leave PICC line in at this time.
[2024-04-17] MEDS: DULCOLAX 10 MG RECTAL (16:53)
[2024-04-17] MEDS: NSS 1000 IV (16:58)
[2024-04-17] MEDS: MIRALAX 17 GRAMS PO (17:03)
--- NOTE | 2024-04-17 18:24 | W.PN.POD ---
Today's Communication
Today's Communication
Wound care orders on chart, continue dakins wet dressing to the left heel and santyl to the right lateral foot.
Continue meticulous offloading and pressure relief.
Observe for increased mottling/cyanosis to toes
No further surgical intervention required at this time. Discussed w/pts and son that she will require follow up at wound ctr (prev at health system)
Will see prn
Assessment / Plan
-
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
2-Peripheral neuropathy of unknown etiology
3-sepsis
4-uti/JOCYE
5-anemia
6-poor nutrition-
7-Afib- on anti coag
Subjective
Chief Complaint
sepsis/non healing wounds
Subjective
Patient sleeping, appears comfortable, but lethargic
Objective
Temp Pulse Resp BP Pulse Ox
97.3 F 112 20 137/77 93
04/17/24 15:08 04/17/24 15:08 04/17/24 15:08 04/17/24 15:08 04/17/24 15:08
04/15/24 03:13
04/17/24 06:27
Vital Signs and Lab results were reviewed.
Inspection: Cellulitis (none) and Ulcer (left heel and right forefoot)
Review of Systems
Review of Systems
Review of Systems: Other (unable to interview at present second to lethargy)
Physical Exam
Physical Exam
General: No Apparent Distress
Musculoskeletal: No Clubbing, No Edema and Cyanosis (cyanosis to fingers and toes/mottling noted since yesterday- blanchable)
Skin: Neurotrophic Ulcer (right lateral foot- decreased depth and size and granular w/o drainage, left heel with decreased depth and increased granulation(nearly 70%), no odor or drainage )
Neuro: Sedated and Protective Sensation Absent
Vascular: Capillary Refill Delayed and Skin Temperature Warm to Cool
Dorsalis Pedis: Diminished
Posterior Tibialis: Diminished
[2024-04-17] MEDS: COLACE 100 MG PO (20:43)
[2024-04-18] VITALS (7 sets, daily range): BP systolic 98–115; BP diastolic 61–68
[2024-04-18 05:28] LABS: % Basophils 0.3 % (0-2); % Eosinophils 1.1 % (0-6); % Immature Granulocytes 0.9 % (0-0.5); % Lymphocytes 11.2 % (20.5-51.1); % Neutrophils 78.5 % (42.2-75.2); Absolute Eosinophils 0.1 10^3/uL (0-0.7); Absolute Immature Granulocytes 0.1 10^3/uL (0-0.05); Absolute Lymphocytes 1.4 10^3/uL (1.2-3.4); Hematocrit 34.4 % (37.0-47.0); Hemoglobin 11.2 g/dL (12.0-16.0); Mean Corp Hgb Conc. 32.6 g/dL (33.0-37.0); Mean Corpuscular Hgb 29.4 pg (27.0-31.0); Mean Corpuscular Volume 90.3 fL (81.0-99.0); Mean Platelet Volume 11.1 fL (7.4-10.4); Nucleated Red Blood Cells % 0.9 %; Platelet Count 253 10^3/uL (130-400); Red Blood Cell Count 3.81 10^6/uL (4.20-5.40); Red Cell Dist. Width 19.4 % (11.5-14.5); White Blood Cell Count 12.7 10^3/uL (4.8-10.8)
[2024-04-18 05:50] LABS: ALT (SGPT) 134 U/L (0-35); AST (SGOT) 99 U/L (14-36); Albumin 2.9 g/dl (3.5-5.0); Alkaline Phosphatase 120 U/L (38-126); Blood Urea Nitrogen 64 mg/dl (7-17); Calcium 8.9 mg/dl (8.4-10.2); Carbon Dioxide 26 mmol/L (22-30); Chloride 99 mmol/L (98-107); Estimated Creatinine Clearance 29 ml/min; Glucose 94 mg/dl (70-99); Potassium 4.4 mmol/L (3.5-5.1); Sodium 138 mmol/L (135-145); Total Bilirubin 1.2 mg/dl (0.2-1.3); Total Protein 5.7 g/dl (6.3-8.2); eGFR 37.56
--- NOTE | 2024-04-18 07:01 | PTCARENOTE ---
pt was dry all night and bladder scan was done by me and rn.
[2024-04-18] MEDS: NSS (PRESERVATIVE FREE) 10 ML IV (08:11)
[2024-04-18] MEDS: PROTONIX IV 40 MG IV (08:11)
[2024-04-18] MEDS: MIRALAX 17 GRAMS PO (08:12)
[2024-04-18] MEDS: LASIX 20 MG PO (08:12)
[2024-04-18] MEDS: OMNICEF 300 MG PO ×2 (08:12→20:00)
[2024-04-18] MEDS: ELIQUIS 5 MG PO ×2 (08:12→20:00)
[2024-04-18] MEDS: CYMBALTA DELAYED RELEASE 60 MG PO (08:12)
[2024-04-18] MEDS: TOPROL XL 50 MG PO ×2 (08:13→20:01)
[2024-04-18] MEDS: COLACE 100 MG PO ×2 (08:13→20:00)
[2024-04-18] MEDS: SANTYL OINTMENT 1 APPLIC TOPICAL (10:10)
[2024-04-18] MEDS: DAKIN'S SOLUTION 0.125% 1/4 STRENGTH 473 ML TOPICAL (10:10)
--- NOTE | 2024-04-18 10:52 | W.PN.HOSP.TC ---
Addendum entered and electronically signed by Jose Angel Guerra DO 04/18/24 13:48:
Had extensive discussion with patient, , & son at the bedside.
We discussed her prognosis and lack of global improvement in terms of her energy, appetite, and ongoing failure to thrive. She continues to lack energy, lack appetite, and sleeps all day long in her hospital room.
I am sure her failure to thrive is multifactorial including her comorbidities, age, deconditioning.
We discussed option of continuing aggressive treatment if that is in keeping with her goals of care versus transitioning to hospice if she does not improve.
Family & patient want to see how she does over the weekend and make a decision Saturday and Saturday about further care.
Original Note:
Today's Communication/Plan
-
Await goals of care decision by family
IV fluids
Labs in the morning
Advance diet as tolerated
Assessment / Plan
Assessment / Plan
General: Awake but not alert. No complaints.
HEENT: Normocephalic, Atraumatic and Dry Mucous Membranes
Respiratory: Decreased breath sounds bilateral; Clear to Auscultation; Negative Wheezes, Rales or Rhonchi
Cardiac: Irregular rate and rhythm, tachycardic but less, and S1/S2, systolic murmur
GI: Soft, Nontender and Nondistended
Musculoskeletal: Left heel wound with some erythema, granulation, scant purulent. Also right fifth digit wound with purulence. No Clubbing, No Cyanosis and No Edema
Neuro: Alert oriented today, still with generalized weakness and mild lethargy but much improved.
Skin: Cyanotic fingertips bilaterally and toes bilaterally
Acute metabolic encephalopathy -due to septic shock, critical illness, multiorgan failure. Improving mental status but still somewhat lethargic. I am surprised by the lack of improvement in her level of fatigue and lethargy. I had a long
discussion with patient as well as her son on the phone regarding goals of care. I mentioned hospice as an option if she is tired of fighting. I am concerned that her lethargy and fatigue are not improving despite treating her in the hospital. I
also had a discussion about CODE STATUS and recommend DNR given her age and frailty, concern for inability to extubate if she ends up requiring life support. Patient and family want to think about CODE STATUS further before making any changes.
Septic shock - due to deep left heel ulcer. Shock resolved. Leukocytosis resolved. Afebrile. Blood cultures negative. Wound culture shows Klebsiella, MSSA. Currently on cefdinir. ID following.
Dysphagia -improved. Cleared for regular diet by speech therapy. Currently on clear liquid diet given episode of vomiting yesterday. She currently has no appetite according to nursing. Can advance diet as tolerated. No bowel obstruction noted
on x-ray.
Acute hypoxic respiratory insufficiency -currently on 2 L nasal, oxygen, wean off as able.
Atrial fibrillation with rapid ventricular response -due to critical illness. Appreciate cardiology input. Still with fast rates. Amiodarone and atenolol discontinued, titrate Toprol-XL per cardiology. Continue Eliquis.
JOYCE -due to septic shock, ATN. Nephrology following. Lisinopril on hold. JOYCE improved but now her creatinine and BUN are rising and I suspect it is due to hypovolemia from anorexia. Continue IV fluids.
Drummond removed. Last bladder scan 64 cc.
Hyponatremia -improved.
Elevated troponin:
Elevated troponin likely due to acute non-ischemic myocardial injury due to sepsis. Troponin trending down.
Acute on chronic anemia - Baseline hemoglobin appears to be 10-11 range. Recheck hemoglobin. No evidence of bleeding clinically. Suspect acute anemia due to acute illness. Unclear etiology of chronic normocytic anemia. Will need further
evaluation as an outpatient.
Family tells me that is in the works of bone marrow biopsy for suspicions of diagnosis of non-Hodgkin lymphoma
Chronic heart failure preserved EF -hold Lasix given rising creatinine.
Chronic left foot heel neurotrophic wound -podiatry input noted. Underwent bedside debridement by podiatry on 04/16.
NOMI results noted. Left TBI severely reduced at 0. Findings may indicate small vessel disease. Right TBI moderately reduced. Appreciate vascular surgery input. Recommend outpatient follow-up.
MRI does not show osteomyelitis, but does show significant plantar fasciitis with adjacent patchy reactive marrow edema.
Chronic right foot fifth metatarsal wound -MRI does not show abscess or osteomyelitis.
Digital cyanosis -patient states she has had this for several months. Suspect underlying Raynaud's phenomena. Treat supportively with warming.
Full code
Dispo -SNF when medically stable for discharge.
.
Anticipated Discharge: > 48 hours
Subjective/Interval History
-
Date of Service: April 18, 2024
Patient seen and examined. Still looks lethargic, sleeping when I walked in. Denies nausea. Lack of appetite.
Objective Data
-
Labs:
Laboratory Results
04/18/24
04:55
WBC 12.7 H
Hgb 11.2 L
Hct 34.4 L
Plt Count 253
Sodium 138
Potassium 4.4
Chloride 99
Carbon Dioxide 26
BUN 64 H
Creatinine 1.4 H
Glucose 94
Calcium 8.9
Total Bilirubin 1.2
AST 99 H
ALT 134 H
Alkaline Phosphatase 120
Vital Signs:
Vital Signs
Temp Pulse Resp BP Pulse Ox
98.2 F 108 18 106/61 98
04/18/24 07:15 04/18/24 07:15 04/18/24 07:15 04/18/24 07:15 04/18/24 05:04
I&O
04/17/24 04/18/24 04/19/24
06:59 06:59 06:59
Intake Total 960 / 960 2390 / 2390 2260 / 2260
Balance 960 / 960 2390 / 2390 2260 / 2260
Review of Systems
-
History Source: Patient
All other systems: Reviewed and negative
--- NOTE | 2024-04-18 11:15 | W.PN.CD ---
Addendum entered and electronically signed by Michele Ruiz MD 04/18/24 12:41:
Patient seen and evaluated. I agree with the note, documentation and plan of care. Patient is 83-year-old woman with infections and is noted to have A-fib with RVR. Patient was previously on amiodarone and atenolol. Amio was ineffective and
atenolol was switched with hypotension. Patient atenolol was switched to metoprolol. Currently patient's rate is poorly controlled with borderline hypotension. We will add short acting diltiazem 30 mg 3 times daily as needed for better rate
control.
Addendum entered and electronically signed by DEVON Hutchison 04/18/24 11:57:
add low dose dilt and monitor
Original Note:
Today's Communication / Plan
-
Continue metoprolol and follow HR's and BP's
continue Eliquis for OAC
Impression / Plan
-
Septic Shock: improved
-no longer on pressors
-on IV abx
-source is left foot ulcer
-hospitalists, ID, and podiatry following
AFIB with RVR: becoming persistent
-this is in setting of acute illness as above. She had one episode of documented AFIB in the past.
-was using amiodarone for rate when BP low: BP was better, but a little soft over past 24 hours. Monitor closely.
-amiodarone and atenolol stopped
-titrate Toprol XL: now at 50mg bid
-continue Eliquis for OAC
-can assess for rhythm control is remains in A fib at office follow up after recovery from hospitalization
HFpEF, chronic: with valvular HD
-on lasix as OP: this was resumed, but now stopped again with rise in creatinine today
-Echo 04/15/24: EF 55%,moderate AR/, moderate MR, mod TR, PASP 70s
Abnormal troponin:
-acute non-ischemic myocardial injury in setting of acute illness with septic shock
Physical Exam
Vital Signs/Labs
Vital Signs
Temp Pulse Resp BP Pulse Ox
98.2 F 108 18 106/61 98
04/18/24 07:15 04/18/24 07:15 04/18/24 07:15 04/18/24 07:15 04/18/24 05:04
04/17/24 04/18/24 04/19/24
06:59 06:59 06:59
Actual Weight 71.838 kg
04/18/24 04:55
04/18/24 04:55
PT 26.3 Sec (11.4-14.6) H 04/16/24 05:12
INR 2.38 04/16/24 05:12
APTT 36.0 Sec (23.4-35.0) H 04/16/24 05:12
Magnesium 1.9 mg/dl (1.6-2.3) 04/16/24 05:12
04/12/24
15:11
[id number] Pept > [id number]
Physical Exam
Constitutional: No acute distress
EENT: Anicteric
Cardiovascular: Rhythm/rate is irregular
Respiratory: Respiratory effort normal, Lungs clear to auscul. and Other (on O2 by NC)
Neuro/Psych: Alert
Data Reviewed
-
Date of Service: April 18, 2024
EKG: Other (tele AFIB rates elevated at times)
[2024-04-18] MEDS: NSS 1000 IV (11:53)
[2024-04-18] MEDS: CARDIZEM 30 MG PO (15:21)
--- NOTE | 2024-04-18 16:27 | PTOTSP ---
ST Follow-Up
Pt currently presents with functional oral, pharyngeal and esophageal parameters for safe ingestion of full liquid diet. Will continue to follow and re-assess swallowing function once cleared for diet upgrades.
Recommendations:
- Continue with full liquids diet and upgrade to SOFT BITE SIZED SOLIDS with thin liquids when able; meds as tolerated.
- Aspiration precautions: Fully awake, alert, and upright for PO intake; occasional assistance required; small bites/sips; slow intake rate; alternate solids/liquids.
- [employer] to f/u re: reassessing PO tolerance of solids once upgraded by medical team.
[2024-04-18] MEDS: TYLENOL 650 MG PO (18:08)
[2024-04-19] VITALS (7 sets, daily range): BP systolic 120–126; BP diastolic 62–75; PULSE 67; O2SAT 100; BMI 29.5
[2024-04-19] MEDS: CARDIZEM 30 MG PO ×4 (00:09→21:14)
[2024-04-19] MEDS: NSS 1000 IV ×2 (00:11→14:28)
--- NOTE | 2024-04-19 08:12 | W.PN.CD ---
Today's Communication / Plan
-
-Continue diltiazem 30 mg 3 times daily and metoprolol 50 twice a day.
-Continue Eliquis 5 mg twice a day
Impression / Plan
-
Septic Shock: improved
-no longer on pressors
-on IV abx
-source is left foot ulcer
-hospitalists, ID, and podiatry following
AFIB with RVR: becoming persistent
-this is in setting of acute illness as above. She had one episode of documented AFIB in the past.
-was using amiodarone for rate when BP low: BP was better, but a little soft over past 24 hours. Monitor closely.
-amiodarone and atenolol stopped
-titrate Toprol XL: now at 50mg bid. Diltiazem 30 mg 3 times daily added.
-A-fib ventricular response rate is much better with Toprol/diltiazem
-continue Eliquis for OAC
-can assess for rhythm control is remains in A fib at office follow up after recovery from hospitalization
Raynaud's
-Patient is having cold fingertips
-Fluctuating fingertips noted. Currently we are struggling with rate control. Any vasodilatory agents likely will increase ventricle response.
-Can consider switching diltiazem to amlodipine
HFpEF, chronic: with valvular HD
-on lasix as OP: this was resumed, but now stopped again with rise in creatinine today
-Echo 04/15/24: EF 55%,moderate AR/, moderate MR, mod TR, PASP 70s
Abnormal troponin:
-acute non-ischemic myocardial injury in setting of acute illness with septic shock
Physical Exam
Vital Signs/Labs
Vital Signs
Temp Pulse Resp BP Pulse Ox
97.4 F 109 22 120/73 99
04/19/24 07:20 04/19/24 07:20 04/19/24 07:20 04/19/24 07:20 04/19/24 07:20
04/18/24 04/19/24 04/20/24
06:59 06:59 06:59
Actual Weight 73.142 kg
04/18/24 04:55
PT 26.3 Sec (11.4-14.6) H 04/16/24 05:12
INR 2.38 04/16/24 05:12
APTT 36.0 Sec (23.4-35.0) H 04/16/24 05:12
Magnesium 1.9 mg/dl (1.6-2.3) 04/16/24 05:12
04/12/24
15:11
Lhf-M-Irwtagfpppq Pept > [id number]
Physical Exam
Constitutional: No acute distress and Comfortable
EENT: Anicteric and Moist mucous membranes
Cardiovascular: JVD pressure is normal, Rhythm/rate is irregular and Systolic murmur present
Respiratory: Respiratory effort normal, Wheeze Absent and Crackles Absent
GI: Soft, Non tender and Normal bowel sounds
Neuro/Psych: Alert and Oriented
Data Reviewed
-
Date of Service: April 19, 2024
Medical Decision Making: Reviewed Test Results, Independent Historian Assessment, Test Interpretation and Review of Case with other Provider
EKG: Tracing Personally Visualized and interpreted
Echo: Report Reviewed by me
Labs: Labs Reviewed by me
Old Records: Reviewed
[2024-04-19 08:57] LABS: ALT (SGPT) 118 U/L (0-35); AST (SGOT) 91 U/L (14-36); Alkaline Phosphatase 114 U/L (38-126); Blood Urea Nitrogen 63 mg/dl (7-17); Calcium 8.9 mg/dl (8.4-10.2); Carbon Dioxide 26 mmol/L (22-30); Chloride 101 mmol/L (98-107); Estimated Creatinine Clearance 29 ml/min; Glucose 99 mg/dl (70-99); Potassium 4.2 mmol/L (3.5-5.1); Sodium 137 mmol/L (135-145); Total Bilirubin 1.1 mg/dl (0.2-1.3); Total Protein 5.8 g/dl (6.3-8.2); eGFR 37.56
[2024-04-19] MEDS: MIRALAX 17 GRAMS PO (10:00)
[2024-04-19] MEDS: OMNICEF 300 MG PO ×2 (10:00→20:48)
[2024-04-19] MEDS: CYMBALTA DELAYED RELEASE 60 MG PO (10:00)
[2024-04-19] MEDS: COLACE 100 MG PO ×2 (10:00→20:48)
[2024-04-19] MEDS: ELIQUIS 5 MG PO ×2 (10:01→20:48)
[2024-04-19] MEDS: TOPROL XL 50 MG PO ×2 (10:01→20:48)
[2024-04-19] MEDS: SANTYL OINTMENT 1 APPLIC TOPICAL (10:01)
[2024-04-19] MEDS: NSS (PRESERVATIVE FREE) 10 ML IV (10:01)
[2024-04-19] MEDS: PROTONIX IV 40 MG IV (10:01)
[2024-04-19] MEDS: DAKIN'S SOLUTION 0.125% 1/4 STRENGTH 473 ML TOPICAL (10:02)
--- NOTE | 2024-04-19 10:53 | W.PN.HOSP.TC ---
Today's Communication/Plan
-
Advance diet as tolerated
PT/OT
1 more liter IV fluids
Labs in the morning
Assessment / Plan
Assessment / Plan
General: Awake, alert, NAD
HEENT: Normocephalic, Atraumatic and Dry Mucous Membranes
Respiratory: Decreased breath sounds bilateral; Clear to Auscultation; Negative Wheezes, Rales or Rhonchi
Cardiac: Irregular rate and rhythm, tachycardic but less, and S1/S2, systolic murmur
GI: Soft, Nontender and Nondistended
Musculoskeletal: Left heel wound with some erythema, granulation, scant purulent. Also right fifth digit wound with purulence. No Clubbing, No Cyanosis and No Edema
Neuro: Alert oriented today, still with generalized weakness and mild lethargy but much improved.
Skin: Less cyanotic fingertips bilaterally and toes bilaterally
Acute metabolic encephalopathy -due to septic shock, critical illness, multiorgan failure. Improving mental status compared to yesterday. More awake and alert.
Septic shock - due to deep left heel ulcer. Shock resolved. Leukocytosis resolved. Afebrile. Blood cultures negative. Wound culture shows Klebsiella, MSSA. Currently on cefdinir, last day 04/20. ID following.
Dysphagia -improved. Cleared for regular diet by speech therapy. Tolerating clears. Can advance diet as tolerated. No bowel obstruction noted on x-ray.
Acute hypoxic respiratory insufficiency -currently on 2 L nasal, oxygen, wean off as able.
Atrial fibrillation with rapid ventricular response -due to critical illness. Appreciate cardiology input. Still with fast rates. Amiodarone and atenolol discontinued, titrate Toprol-XL per cardiology. Continue Eliquis.
JOYCE -due to septic shock, ATN. Nephrology following. Lisinopril on hold. JOYCE improved but now her creatinine and BUN are rising and I suspect it is due to hypovolemia from anorexia. Continue IV fluids. Creatinine stable at 1.4 today.
Drummond removed. No retention on bladder scan.
Hyponatremia -improved.
Elevated troponin:
Elevated troponin likely due to acute non-ischemic myocardial injury due to sepsis. Troponin trending down.
Acute on chronic anemia - Baseline hemoglobin appears to be 10-11 range. Recheck hemoglobin. No evidence of bleeding clinically. Suspect acute anemia due to acute illness. Unclear etiology of chronic normocytic anemia. Will need further
evaluation as an outpatient.
Family tells me that is in the works of bone marrow biopsy for suspicions of non-Hodgkin lymphoma
Chronic heart failure preserved EF -hold Lasix given rising creatinine.
Chronic left foot heel neurotrophic wound -podiatry input noted. Underwent bedside debridement by podiatry on 04/16.
NOMI results noted. Left TBI severely reduced at 0. Findings may indicate small vessel disease. Right TBI moderately reduced. Appreciate vascular surgery input. Recommend outpatient follow-up.
MRI does not show osteomyelitis, but does show significant plantar fasciitis with adjacent patchy reactive marrow edema.
Chronic right foot fifth metatarsal wound -MRI does not show abscess or osteomyelitis.
Digital cyanosis -patient states she has had this for several months. Suspect underlying Raynaud's phenomena. Treat supportively with warming.
Full code
Dispo -SNF when medically stable for discharge.
.
Anticipated Discharge: 24 - 48 hours
Subjective/Interval History
-
Date of Service: April 19, 2024
Patient seen and examined. Looks brighter today, more alert. States she is feeling better.
Objective Data
-
Labs:
Laboratory Results
04/19/24
07:57
Sodium 137
Potassium 4.2
Chloride 101
Carbon Dioxide 26
BUN 63 H
Creatinine 1.4 H
Glucose 99
Calcium 8.9
Total Bilirubin 1.1
AST 91 H
ALT 118 H
Alkaline Phosphatase 114
Vital Signs:
Vital Signs
Temp Pulse Resp BP Pulse Ox
97.4 F 109 22 120/73 99
04/19/24 07:20 04/19/24 07:20 04/19/24 07:20 04/19/24 07:20 04/19/24 07:20
I&O
04/18/24 04/19/24 04/20/24
06:59 06:59 06:59
Intake Total 2390 / 2390 3940 / 3940
Balance 2390 / 2390 3940 / 3940
Review of Systems
-
History Source: Patient
All other systems: Reviewed and negative
[2024-04-19] MEDS: TYLENOL 650 MG PO (14:29)
[2024-04-19 18:30] LABS: GGTP 38 U/L (12-43)
[2024-04-20] VITALS (7 sets, daily range): BP systolic 120–141; BP diastolic 62–89; BMI 30.4
[2024-04-20 06:27] LABS: ALT (SGPT) 106 U/L (0-35); AST (SGOT) 81 U/L (14-36); Alkaline Phosphatase 135 U/L (38-126); Blood Urea Nitrogen 57 mg/dl (7-17); Carbon Dioxide 25 mmol/L (22-30); Chloride 102 mmol/L (98-107); Estimated Creatinine Clearance 34 ml/min; Glucose 98 mg/dl (70-99); Potassium 3.9 mmol/L (3.5-5.1); Sodium 140 mmol/L (135-145); Total Bilirubin 1.1 mg/dl (0.2-1.3); Total Protein 5.8 g/dl (6.3-8.2); eGFR 45.19
--- NOTE | 2024-04-20 08:45 | W.PN.HOSP.TC ---
Today's Communication/Plan
-
Antibiotics. Chest x-ray. Discharge planning in progress
Assessment / Plan
Assessment / Plan
General: Awake, alert, NAD
HEENT: Normocephalic, Atraumatic and Dry Mucous Membranes
Respiratory: Decreased breath sounds bilateral; Clear to Auscultation; Negative Wheezes, Rales or Rhonchi
Cardiac: Irregular rate and rhythm, tachycardic but less, and S1/S2, systolic murmur
GI: Soft, Nontender and Nondistended
Musculoskeletal: Left heel wound with some erythema, granulation, scant purulent. Also right fifth digit wound with purulence. No Clubbing, No Cyanosis and No Edema
Neuro: Alert oriented today, still with generalized weakness and mild lethargy but much improved.
Skin: Less cyanotic fingertips bilaterally and toes bilaterally
A/P:
Acute metabolic encephalopathy -due to septic shock, critical illness, multiorgan failure. Improving mental status. More awake and alert.
Septic shock - due to deep left heel ulcer. Shock resolved. Leukocytosis resolved. Afebrile. Blood cultures negative. Wound culture shows Klebsiella, MSSA. Currently on cefdinir, last day probably 04/20. ID following.
Dysphagia -improved. Cleared for regular diet by speech therapy. Tolerating clears. Can advance diet as tolerated. No bowel obstruction noted on x-ray.
Acute hypoxic respiratory insufficiency -currently on 2-4 L nasal, oxygen, wean off as able. Repeat cxr today.
Atrial fibrillation with rapid ventricular response -due to critical illness. Appreciate cardiology input. Still with fast rates. Amiodarone and atenolol discontinued, titrate Toprol-XL per cardiology. Continue Eliquis.
JOYCE -due to septic shock, ATN. Nephrology following. Lisinopril on hold. JOYCE improved but now her creatinine and BUN are rising and I suspect it is due to hypovolemia from anorexia. Continue IV fluids. Creatinine stable at 1.2 today.
Drummond removed. No retention on bladder scan.
Hyponatremia -improved.
Elevated troponin:
Elevated troponin likely due to acute non-ischemic myocardial injury due to sepsis. Troponin trending down.
Acute on chronic anemia - Baseline hemoglobin appears to be 10-11 range. Recheck hemoglobin. No evidence of bleeding clinically. Suspect acute anemia due to acute illness. Unclear etiology of chronic normocytic anemia. Will need further
evaluation as an outpatient.
Family tells me that is in the works of bone marrow biopsy for suspicions of non-Hodgkin lymphoma
Chronic heart failure preserved EF -hold Lasix given rising creatinine.
Chronic left foot heel neurotrophic wound -podiatry input noted. Underwent bedside debridement by podiatry on 04/16.
NOMI results noted. Left TBI severely reduced at 0. Findings may indicate small vessel disease. Right TBI moderately reduced. Appreciate vascular surgery input. Recommend outpatient follow-up.
MRI does not show osteomyelitis, but does show significant plantar fasciitis with adjacent patchy reactive marrow edema.
Chronic right foot fifth metatarsal wound -MRI does not show abscess or osteomyelitis.
Digital cyanosis -patient states she has had this for several months. Suspect underlying Raynaud's phenomena. Treat supportively with warming.
DVT prophylaxis-Eliquis
CODE STATUS-full code
Anticipated Discharge: 24 - 48 hours
Subjective/Interval History
-
Date of Service: April 20, 2024
Patient denies chest pain or shortness of breath. Afebrile today. Generalized weakness.
Objective Data
-
Labs:
Laboratory Results
04/20/24
05:31
Sodium 140
Potassium 3.9
Chloride 102
Carbon Dioxide 25
BUN 57 H
Creatinine 1.2 H
Glucose 98
Calcium 9.0
Total Bilirubin 1.1
AST 81 H
ALT 106 H
Alkaline Phosphatase 135 H
Vital Signs:
Vital Signs
Temp Pulse Resp BP Pulse Ox
97.2 F 105 16 127/66 98
04/20/24 03:55 04/20/24 03:55 04/20/24 03:55 04/20/24 03:55 04/20/24 03:55
I&O
04/19/24 04/20/24 04/21/24
06:59 06:59 06:59
Intake Total 3940 / 3940 1200 / 1200
Balance 3940 / 3940 1200 / 1200
[2024-04-20] MEDS: TOPROL XL 50 MG PO ×2 (09:22→20:22)
[2024-04-20] MEDS: ELIQUIS 5 MG PO ×2 (09:22→20:22)
[2024-04-20] MEDS: NSS (PRESERVATIVE FREE) 10 ML IV (09:23)
[2024-04-20] MEDS: COLACE 100 MG PO ×2 (09:23→20:22)
[2024-04-20] MEDS: PROTONIX IV 40 MG IV (09:23)
[2024-04-20] MEDS: CYMBALTA DELAYED RELEASE 60 MG PO (09:23)
[2024-04-20] MEDS: CARDIZEM 30 MG PO (09:23)
[2024-04-20] MEDS: MIRALAX 17 GRAMS PO (09:24)
[2024-04-20] MEDS: OMNICEF 300 MG PO ×2 (09:24→20:22)
--- NOTE | 2024-04-20 10:16 | W.PN.CD ---
Today's Communication / Plan
-
Will move to long acting dilt
Continue current metoprolol and Eliquis dosing
Cardiology will sign off. Please call with questions
Followup with our office on May 13, 2024 at 1:40 pm with Shey Cuadra
Impression / Plan
-
AFib, persisting
- Rate now acceptable
- Toleating Eliquis
- can assess for rhythm control if remains in A fib at office follow up after recovery from hospitalization
HFpEF, chronic:
- Anticipate going back on home meds closer to discharge
Valvular HD
- Echo 04/15/24: EF 55%,moderate AR/, moderate MR, mod TR, PASP 70s
Infection
- Improved, on oral ATB
Physical Exam
Vital Signs/Labs
Vital Signs
Temp Pulse Resp BP Pulse Ox
97.8 F 80 19 120/67 98
04/20/24 08:00 04/20/24 09:22 04/20/24 08:00 04/20/24 09:22 04/20/24 08:00
04/19/24 04/20/24 04/21/24
06:59 06:59 06:59
Actual Weight 73.142 kg 75.325 kg
04/18/24 04:55
04/20/24 05:31
PT 26.3 Sec (11.4-14.6) H 04/16/24 05:12
INR 2.38 04/16/24 05:12
APTT 36.0 Sec (23.4-35.0) H 04/16/24 05:12
Magnesium 1.9 mg/dl (1.6-2.3) 04/16/24 05:12
04/12/24
15:11
Suv-Z-Fzbgczgifih Pept > [id number]
Physical Exam
Constitutional: No acute distress
EENT: Anicteric
Cardiovascular: Pedal edema is absent and Rhythm/rate is irregular
Respiratory: Respiratory effort normal and Lungs clear to auscul.
GI: Soft and Distention absent
Data Reviewed
-
Date of Service: April 20, 2024
[2024-04-20] MEDS: DAKIN'S SOLUTION 0.125% 1/4 STRENGTH 30 ML TOPICAL (11:24)
[2024-04-20] MEDS: SANTYL OINTMENT 1 APPLIC TOPICAL (11:24)
[2024-04-20] MEDS: CARDIZEM CD 120 MG PO (12:12)
--- NOTE | 2024-04-20 13:44 | W.PN.ID1 ---
Date of Service
Date of Service: April 20, 2024
Today's Communication
Observe off antibiotics following completion of antibiotic therapy today.
Assessment / Plan
Left heel wound infection
Chronic left heel wound
-No evidence of osteomyelitis on imaging
Leukocytosis
- improved
General malaise
P A-fib
HTN
Dyslipidemia
IBS
Bilateral foot ulcers
Hx DVT right lower extremity
Migraine
Neuropathy
Recommendations:
Completing course of oral cefdinir today. Thereafter, observe off antibiotics.
Continue with local care to the left heel area. Given chronicity, this will likely take a prolonged time to heal. She will continue to need aggressive wound care following discharge.
Little more to offer from an Infectious Diseases standpoint. Will follow along with you peripherally while she remains hospitalized. Please call with any questions.
����������������������������������������������������������
Chief Complaint
-: Other (Bilateral foot wounds.)
Subjective / Review of Systems
Review of Systems: No Fever and No Chills
Vital Signs / Physical Exam
Vital Signs
Vital Signs
Temp Pulse Resp BP Pulse Ox
97.7 F 116 20 141/62 94
04/20/24 12:00 04/20/24 12:12 04/20/24 12:00 04/20/24 12:12 04/20/24 12:00
Physical Exam
Constitutional: No Acute Distress, Comfortable, Chronically Ill and Non-toxic
Eyes: No Conjunctival Hemorrhage and Sclera Anicteric
Cardiovascular: Regular Rate and S1/S2; Negative S3/S4
Pulmonary: Clear; Negative Wheezes or Rales
Extremities: Edema; Negative Cyanosis or Erythema
Wound: Other (Left heel ulceration dressed. Right lateral foot ulceration dressed. No periwound erythema.)
Neurological: Awake and Alert
Psychological: Calm
Objective Data
Lab Data
Lab Results
04/18/24 04:55
04/20/24 05:31
PT 26.3 Sec (11.4-14.6) H 04/16/24 05:12
INR 2.38 04/16/24 05:12
APTT 36.0 Sec (23.4-35.0) H 04/16/24 05:12
Estimated Creat Clear 34 ml/min 04/20/24 05:31
Lactic Acid Cancelled 04/13/24 07:30
Total Bilirubin 1.1 mg/dl (0.2-1.3) 04/20/24 05:31
GGT 38 U/L (12-43) 04/19/24 07:57
AST 81 U/L (14-36) H 04/20/24 05:31
ALT 106 U/L (0-35) H 04/20/24 05:31
Alkaline Phosphatase 135 U/L (38-126) H 04/20/24 05:31
Most recent labs reviewed.
Micro Results:
04/12/24 15:46 Blood Culture - Final
Blood/Venous No Growth - Final Report
04/13/24 11:09 Wound Culture - Final
Heel - Left Klebsiella oxytoca
S aureus-Methicillin Sensitive
Gram Stain - Final
04/12/24 21:35 Urine Culture - Final
Urine
04/12/24 19:51 MRSA Screen - Final
Nose No Methicillin Resistant Staphylococcus aureus isolated.
Imaging:
04/15/2024 MRI bilateral feet: Suggestion of a wound lateral to the fifth metatarsophalangeal joint. No evidence for abscess collection. No evidence for adjacent osteomyelitis. No evidence for osteomyelitis involving the right foot. Diffuse
muscular atrophy. Degenerative changes as described.
04/12/2024 Plain film, left foot: A large soft tissue defect/ulceration along the plantar heel. No juan diego osseous erosions noted. No convincing radiographic evidence for active osteomyelitis. Diffuse demineralization noted. No acute fracture or
dislocation. Please see full dictation for additional detail.
[2024-04-20 16:01] LABS: NT-proBNP 14200 pg/ml
[2024-04-21] VITALS (7 sets, daily range): BP systolic 123–145; BP diastolic 62–98; PULSE 89; O2SAT 94; BMI 30.7
[2024-04-21 05:31] LABS: % Basophils 0.4 % (0-2); % Eosinophils 1.2 % (0-6); % Immature Granulocytes 0.8 % (0-0.5); % Lymphocytes 11.2 % (20.5-51.1); % Monocytes 8.7 % (1.7-9.3); % Neutrophils 77.7 % (42.2-75.2); Absolute Basophils 0.1 10^3/uL (0-0.2); Absolute Eosinophils 0.1 10^3/uL (0-0.7); Absolute Immature Granulocytes 0.1 10^3/uL (0-0.05); Absolute Lymphocytes 1.3 10^3/uL (1.2-3.4); Absolute Neutrophils 9.2 10^3/uL (1.4-6.5); Hematocrit 38.5 % (37.0-47.0); Hemoglobin 12.1 g/dL (12.0-16.0); Mean Corp Hgb Conc. 31.4 g/dL (33.0-37.0); Mean Corpuscular Volume 92.3 fL (81.0-99.0); Mean Platelet Volume 10.7 fL (7.4-10.4); Nucleated Red Blood Cells % 1.8 %; Platelet Count 265 10^3/uL (130-400); Red Blood Cell Count 4.17 10^6/uL (4.20-5.40); Red Cell Dist. Width 21.2 % (11.5-14.5); White Blood Cell Count 11.8 10^3/uL (4.8-10.8)
[2024-04-21 05:35] LABS: ALT (SGPT) 92 U/L (0-35); AST (SGOT) 63 U/L (14-36); Albumin 3.2 g/dl (3.5-5.0); Alkaline Phosphatase 137 U/L (38-126); Blood Urea Nitrogen 52 mg/dl (7-17); Calcium 9.1 mg/dl (8.4-10.2); Carbon Dioxide 22 mmol/L (22-30); Chloride 103 mmol/L (98-107); Estimated Creatinine Clearance 37 ml/min; Glucose 95 mg/dl (70-99); Potassium 4.1 mmol/L (3.5-5.1); Sodium 139 mmol/L (135-145); Total Bilirubin 1.2 mg/dl (0.2-1.3); eGFR 50.17
[2024-04-21] MEDS: TOPROL XL 50 MG PO ×2 (08:44→20:49)
[2024-04-21] MEDS: CYMBALTA DELAYED RELEASE 60 MG PO (08:44)
[2024-04-21] MEDS: NSS (PRESERVATIVE FREE) 10 ML IV (08:45)
[2024-04-21] MEDS: ELIQUIS 5 MG PO ×2 (08:45→20:49)
[2024-04-21] MEDS: COLACE 100 MG PO ×2 (08:45→20:49)
[2024-04-21] MEDS: SANTYL OINTMENT 1 APPLIC TOPICAL (08:45)
[2024-04-21] MEDS: PROTONIX IV 40 MG IV (08:45)
[2024-04-21] MEDS: DAKIN'S SOLUTION 0.125% 1/4 STRENGTH 473 ML TOPICAL (08:45)
[2024-04-21] MEDS: CARDIZEM CD 120 MG PO (08:45)
[2024-04-21] MEDS: MIRALAX PO ×2 (08:45→08:53)
--- NOTE | 2024-04-21 08:53 | W.PN.HOSP.TC ---
Addendum entered and electronically signed by Ridge Lucero MD 04/21/24 14:08:
Discussed with son over phone. Besides current plan of care, he also expressed some concerns about slurred speech and eye abnormality. She is already on Eliquis. Will proceed with a routine CT scan of the head without contrast today and
reevaluate.
Original Note:
Today's Communication/Plan
-
IV Lasix. Incentive spirometry.
Assessment / Plan
Assessment / Plan
General: Awake, alert, NAD
HEENT: Normocephalic, Atraumatic and Dry Mucous Membranes
Respiratory: Decreased breath sounds bilateral; Clear to Auscultation; Negative Wheezes, Rales or Rhonchi
Cardiac: Irregular rate and rhythm, tachycardic but less, and S1/S2, systolic murmur
GI: Soft, Nontender and Nondistended
Musculoskeletal: Left heel wound with some erythema, granulation, scant purulent. Also right fifth digit wound with purulence. No Clubbing, No Cyanosis and No Edema
Neuro: Alert oriented today, still with generalized weakness and mild lethargy but much improved.
Skin: Less cyanotic fingertips bilaterally and toes bilaterally
A/P:
Acute hypoxic respiratory insufficiency -currently on 4 L nasal, oxygen, wean off as able. Repeat cxr yesterday and shows increased opacity but given the technique also it could be poor penetration. In any event we will use IV Lasix 40 mg daily for
a few doses, blood pressure and renal function permitting and incentive spirometry and reevaluate.
Acute metabolic encephalopathy -due to septic shock, critical illness, multiorgan failure. Improving mental status. More awake and alert.
Septic shock - due to deep left heel ulcer. Shock resolved. Leukocytosis resolved. Afebrile. Blood cultures negative. Wound culture shows Klebsiella, MSSA. Completed course of antibiotics on 04/20. ID following.
Dysphagia -improved. Cleared for regular diet by speech therapy. Tolerating clears. Can advance diet as tolerated. No bowel obstruction noted on x-ray.
Atrial fibrillation with rapid ventricular response -due to critical illness. Appreciate cardiology input. Still with fast rates. Amiodarone and atenolol discontinued, titrate Toprol-XL per cardiology. Continue Eliquis.
JOYCE -due to septic shock, ATN. Nephrology following. Lisinopril on hold. JOYCE improved but now her creatinine and BUN are rising and I suspect it is due to hypovolemia from anorexia. Received IV fluids. Creatinine stable at 1.1 today.
Drummond removed. No retention on bladder scan.
Hyponatremia -improved.
Elevated troponin:
Elevated troponin likely due to acute non-ischemic myocardial injury due to sepsis. Troponin trending down.
Acute on chronic anemia - Baseline hemoglobin appears to be 10-11 range. Recheck hemoglobin. No evidence of bleeding clinically. Suspect acute anemia due to acute illness. Unclear etiology of chronic normocytic anemia. Will need further
evaluation as an outpatient.
Family tells me that is in the works of bone marrow biopsy for suspicions of non-Hodgkin lymphoma
Chronic heart failure preserved EF -hold Lasix given rising creatinine.
Chronic left foot heel neurotrophic wound -podiatry input noted. Underwent bedside debridement by podiatry on 04/16.
NOMI results noted. Left TBI severely reduced at 0. Findings may indicate small vessel disease. Right TBI moderately reduced. Appreciate vascular surgery input. Recommend outpatient follow-up.
MRI does not show osteomyelitis, but does show significant plantar fasciitis with adjacent patchy reactive marrow edema.
Chronic right foot fifth metatarsal wound -MRI does not show abscess or osteomyelitis.
Digital cyanosis -patient states she has had this for several months. Suspect underlying Raynaud's phenomena. Treat supportively with warming.
DVT prophylaxis-Eliquis
CODE STATUS-full code
Anticipated Discharge: 24 - 48 hours
Subjective/Interval History
-
Date of Service: April 21, 2024
Patient alert. Mild shortness of breath. Still on 4 L of oxygen. Afebrile
Objective Data
-
Labs:
Laboratory Results
04/21/24
04:53
WBC 11.8 H
Hgb 12.1
Hct 38.5
Plt Count 265
Sodium 139
Potassium 4.1
Chloride 103
Carbon Dioxide 22
BUN 52 H
Creatinine 1.1 H
Glucose 95
Calcium 9.1
Total Bilirubin 1.2
AST 63 H
ALT 92 H
Alkaline Phosphatase 137 H
Vital Signs:
Vital Signs
Temp Pulse Resp BP Pulse Ox
96.2 F L 111 22 142/82 93
04/21/24 07:43 04/21/24 07:43 04/21/24 07:43 04/21/24 07:43 04/21/24 07:22
I&O
04/20/24 04/21/24 04/22/24
06:59 06:59 06:59
Intake Total 1200 / 1200
Balance 1200 / 1200
[2024-04-21] MEDS: LASIX 40 MG IV (11:49)
[2024-04-21] MEDS: TYLENOL 650 MG PO (11:55)
--- NOTE | 2024-04-21 17:32 | CM ---
Referral sent via [facility] to Dardanelle Reh for consideration. Pt's requested same.
CM will continue to follow.
[2024-04-22] VITALS (7 sets, daily range): BP systolic 131–148; BP diastolic 66–94; PULSE 111; BMI 29.9
[2024-04-22] MEDS: DESITIN MAXIMUM STRENGTH PASTE 1 APPLIC TOPICAL ×3 (00:05→21:09)
[2024-04-22 04:40] LABS: Blood Urea Nitrogen 48 mg/dl (7-17); Calcium 9.4 mg/dl (8.4-10.2); Carbon Dioxide 24 mmol/L (22-30); Chloride 102 mmol/L (98-107); Estimated Creatinine Clearance 41 ml/min; Glucose 97 mg/dl (70-99); Magnesium 1.8 mg/dl (1.6-2.3); Potassium 3.9 mmol/L (3.5-5.1); Sodium 140 mmol/L (135-145); eGFR 56.25
[2024-04-22] MEDS: TOPROL XL 50 MG PO ×2 (09:26→21:05)
[2024-04-22] MEDS: CARDIZEM CD 120 MG PO (09:26)
[2024-04-22] MEDS: ELIQUIS 5 MG PO ×2 (09:26→21:04)
[2024-04-22] MEDS: COLACE 100 MG PO (09:26)
[2024-04-22] MEDS: CYMBALTA DELAYED RELEASE 60 MG PO (09:26)
[2024-04-22] MEDS: LASIX 40 MG IV (09:27)
[2024-04-22] MEDS: SANTYL OINTMENT 1 APPLIC TOPICAL (09:27)
[2024-04-22] MEDS: PROTONIX IV 40 MG IV (09:27)
[2024-04-22] MEDS: NSS (PRESERVATIVE FREE) 10 ML IV (09:27)
[2024-04-22] MEDS: DAKIN'S SOLUTION 0.125% 1/4 STRENGTH 473 ML TOPICAL (09:28)
[2024-04-22] MEDS: MIRALAX PO (09:30)
[2024-04-22] MEDS: TYLENOL 650 MG PO ×2 (09:59→21:30)
--- NOTE | 2024-04-22 12:37 | W.PN.HOSP.TC ---
Today's Communication/Plan
-
IV Lasix.
Assessment / Plan
Assessment / Plan
General: Awake, alert, NAD
HEENT: Normocephalic, Atraumatic and Dry Mucous Membranes
Respiratory: Decreased breath sounds bilateral; Clear to Auscultation; Negative Wheezes, Rales or Rhonchi
Cardiac: Irregular rate and rhythm, tachycardic but less, and S1/S2, systolic murmur
GI: Soft, Nontender and Nondistended
Musculoskeletal: Left heel wound with some erythema, granulation, scant purulent. Also right fifth digit wound with purulence. No Clubbing, No Cyanosis and No Edema
Neuro: Alert oriented today, still with generalized weakness and mild lethargy but much improved.
Skin: Less cyanotic fingertips bilaterally and toes bilaterally
A/P:
Acute hypoxic respiratory insufficiency -currently on supplemental oxygen, wean off as able. Last chest x-ray showed heart failure. On IV Lasix. Weight down to 74 kg today. Will probably repeat chest x-ray tomorrow. Continue incentive
spirometry. Discussed goals of care with patient and she is doubtful but she wants to remain full code for now. Updated son over the phone today.
Acute metabolic encephalopathy -due to septic shock, critical illness, multiorgan failure. Improving mental status. More awake and alert.
Septic shock - due to deep left heel ulcer. Shock resolved. Leukocytosis resolved. Afebrile. Blood cultures negative. Wound culture shows Klebsiella, MSSA. Completed course of antibiotics on 04/20. ID following.
Dysphagia -improved. Cleared for regular diet by speech therapy. Tolerating clears. Can advance diet as tolerated. No bowel obstruction noted on x-ray.
Atrial fibrillation with rapid ventricular response -due to critical illness. Appreciate cardiology input. Still with fast rates. Amiodarone and atenolol discontinued, titrate Toprol-XL per cardiology. Continue Eliquis.
JOYCE -due to septic shock, ATN. Nephrology following. Lisinopril on hold. JOYCE improved but now her creatinine and BUN are rising and I suspect it is due to hypovolemia from anorexia. Received IV fluids. Creatinine stable at 1.0 today.
Drummond removed. No retention on bladder scan.
Hyponatremia -improved.
Elevated troponin:
Elevated troponin likely due to acute non-ischemic myocardial injury due to sepsis. Troponin trending down.
Acute on chronic anemia - Baseline hemoglobin appears to be 10-11 range. Recheck hemoglobin. No evidence of bleeding clinically. Suspect acute anemia due to acute illness. Unclear etiology of chronic normocytic anemia. Will need further
evaluation as an outpatient.
Family tells me that is in the works of bone marrow biopsy for suspicions of non-Hodgkin lymphoma
Chronic heart failure preserved EF -hold Lasix given rising creatinine.
Chronic left foot heel neurotrophic wound -podiatry input noted. Underwent bedside debridement by podiatry on 04/16.
NOMI results noted. Left TBI severely reduced at 0. Findings may indicate small vessel disease. Right TBI moderately reduced. Appreciate vascular surgery input. Recommend outpatient follow-up.
MRI does not show osteomyelitis, but does show significant plantar fasciitis with adjacent patchy reactive marrow edema.
Chronic right foot fifth metatarsal wound -MRI does not show abscess or osteomyelitis.
Digital cyanosis -patient states she has had this for several months. Suspect underlying Raynaud's phenomena. Treat supportively with warming.
DVT prophylaxis-Eliquis
CODE STATUS-full code
Total time spent on today's encounter was 52 minutes which included time spent in counseling the patient/family regarding diagnosis and treatment plan as listed above, goals of care, and symptom management. Case was discussed with nursing staff,
specialists, and care coordinators/case management. All labs and imaging personally reviewed by me. Remainder the time spent in detailed review of previous records, lab data, imaging, and other medical provider documentation.
Anticipated Discharge: 24 - 48 hours
Subjective/Interval History
-
Date of Service: April 22, 2024
Patient still requiring oxygen and some shortness of breath. Generalized fatigue. No slurred speech present or focal weakness. Afebrile
Objective Data
-
Labs:
Laboratory Results
04/22/24
03:55
Sodium 140
Potassium 3.9
Chloride 102
Carbon Dioxide 24
BUN 48 H
Creatinine 1.0
Glucose 97
Calcium 9.4
Vital Signs:
Vital Signs
Temp Pulse Resp BP Pulse Ox
97.9 F 104 20 148/87 95
04/22/24 11:34 04/22/24 11:34 04/22/24 11:34 04/22/24 11:34 04/22/24 11:34
I&O
04/21/24 04/22/24 04/23/24
06:59 06:59 06:59
Intake Total 480 / 480
Balance 480 / 480
--- NOTE | 2024-04-22 13:48 | WOUNDNOTE ---
WOC RN NOTE: Patient visited for follow up of left heel and right foot wound. Spoke to EVELIN Gonzalez who recently completed wound care. Lisa will make day shift aware that WOC RN will follow up with patient on 04/23.
[2024-04-22] MEDS: COLACE PO ×2 (21:00→21:04)
[2024-04-23 03:49] VITALS: BP 143/77
[2024-04-23 04:24] VITALS: BMI 29.1
[2024-04-23] MEDS: TYLENOL 650 MG PO ×2 (04:26→15:31)
[2024-04-23 05:01] LABS: Blood Urea Nitrogen 45 mg/dl (7-17); Calcium 9.5 mg/dl (8.4-10.2); Carbon Dioxide 24 mmol/L (22-30); Chloride 102 mmol/L (98-107); Estimated Creatinine Clearance 40 ml/min; Glucose 91 mg/dl (70-99); Potassium 4.1 mmol/L (3.5-5.1); Sodium 140 mmol/L (135-145); eGFR 56.25
[2024-04-23 07:40] VITALS: BP 131/76
[2024-04-23] MEDS: TOPROL XL 50 MG PO ×2 (08:29→20:46)
[2024-04-23] MEDS: CYMBALTA DELAYED RELEASE 60 MG PO (08:30)
[2024-04-23] MEDS: COLACE PO ×2 (08:30→20:35)
[2024-04-23] MEDS: DESITIN MAXIMUM STRENGTH PASTE 1 APPLIC TOPICAL ×2 (08:30→20:42)
[2024-04-23] MEDS: LASIX 40 MG IV (08:30)
[2024-04-23] MEDS: ELIQUIS 5 MG PO ×2 (08:30→20:40)
[2024-04-23] MEDS: CARDIZEM CD 120 MG PO (08:30)
[2024-04-23] MEDS: MIRALAX PO (08:30)
[2024-04-23] MEDS: PROTONIX IV 40 MG IV (08:31)
[2024-04-23] MEDS: NSS (PRESERVATIVE FREE) 10 ML IV (08:31)
--- NOTE | 2024-04-23 08:59 | W.PN.HOSP.TC ---
Today's Communication/Plan
-
IV Lasix. Neurology eval.
Assessment / Plan
Assessment / Plan
General: Awake, alert, NAD
HEENT: Normocephalic, Atraumatic and Dry Mucous Membranes
Respiratory: Decreased breath sounds bilateral; Clear to Auscultation; Negative Wheezes, Rales or Rhonchi
Cardiac: Irregular rate and rhythm, tachycardic but less, and S1/S2, systolic murmur
GI: Soft, Nontender and Nondistended
Musculoskeletal: Left heel wound with some erythema, granulation, scant purulent. Also right fifth digit wound with purulence. No Clubbing, No Cyanosis and No Edema
Neuro: Alert oriented today, still with generalized weakness and mild lethargy but much improved.
Skin: Less cyanotic fingertips bilaterally and toes bilaterally
A/P:
Acute hypoxic respiratory insufficiency -currently on supplemental oxygen, wean off as able. Last chest x-ray showed heart failure. On IV Lasix. Weight down to 74 kg today. Will probably repeat chest x-ray tomorrow. Continue incentive
spirometry. Discussed goals of care with patient and she is doubtful but she wants to remain full code for now. Updated son over the phone yesterday.
Acute metabolic encephalopathy -due to septic shock, critical illness, multiorgan failure. Improving mental status. More awake and alert. RN said patient had mental status changes today 04/23 but when I came and saw her this morning patient was
alert and oriented and answering questions appropriately with no neuro-deficits appreciated--> will request neurology for further evaluation. Discontinue as needed Dilaudid and Compazine today.
Septic shock - due to deep left heel ulcer. Shock resolved. Leukocytosis resolved. Afebrile. Blood cultures negative. Wound culture shows Klebsiella, MSSA. Completed course of antibiotics on 04/20. ID following.
Dysphagia -improved. Cleared for regular diet by speech therapy. Tolerating clears. Can advance diet as tolerated. No bowel obstruction noted on x-ray.
Atrial fibrillation with rapid ventricular response -due to critical illness. Appreciate cardiology input. Still with fast rates. Amiodarone and atenolol discontinued, titrate Toprol-XL per cardiology. Continue Eliquis.
JOYCE -due to septic shock, ATN. Nephrology following. Lisinopril on hold. JOYCE improved but now her creatinine and BUN are rising and I suspect it is due to hypovolemia from anorexia. Received IV fluids. Creatinine stable at 1.0 today.
Drummond removed. No retention on bladder scan.
Hyponatremia -improved.
Elevated troponin:
Elevated troponin likely due to acute non-ischemic myocardial injury due to sepsis. Troponin trending down.
Acute on chronic anemia - Baseline hemoglobin appears to be 10-11 range. Recheck hemoglobin. No evidence of bleeding clinically. Suspect acute anemia due to acute illness. Unclear etiology of chronic normocytic anemia. Will need further
evaluation as an outpatient.
Family tells me that is in the works of bone marrow biopsy for suspicions of non-Hodgkin lymphoma
Chronic heart failure preserved EF -hold Lasix given rising creatinine.
Chronic left foot heel neurotrophic wound -podiatry input noted. Underwent bedside debridement by podiatry on 04/16.
NOMI results noted. Left TBI severely reduced at 0. Findings may indicate small vessel disease. Right TBI moderately reduced. Appreciate vascular surgery input. Recommend outpatient follow-up.
MRI does not show osteomyelitis, but does show significant plantar fasciitis with adjacent patchy reactive marrow edema.
Chronic right foot fifth metatarsal wound -MRI does not show abscess or osteomyelitis.
Digital cyanosis -patient states she has had this for several months. Suspect underlying Raynaud's phenomena. Treat supportively with warming.
DVT prophylaxis-Eliquis
CODE STATUS-full code. Discussed again about CODE STATUS and patient wishes to remain full code.
Total time spent on today's encounter was 52 minutes which included time spent in counseling the patient/family regarding diagnosis and treatment plan as listed above, goals of care, and symptom management. Case was discussed with nursing staff,
specialists, and care coordinators/case management. All labs and imaging personally reviewed by me. Remainder the time spent in detailed review of previous records, lab data, imaging, and other medical provider documentation.
Anticipated Discharge: 24 - 48 hours
Subjective/Interval History
-
Date of Service: April 23, 2024
RN said patient had mental status changes but when I came and saw her this morning patient was alert and oriented and answering questions appropriately. Afebrile.
Objective Data
-
Labs:
Laboratory Results
04/23/24
04:15
Sodium 140
Potassium 4.1
Chloride 102
Carbon Dioxide 24
BUN 45 H
Creatinine 1.0
Glucose 91
Calcium 9.5
Vital Signs:
Vital Signs
Temp Pulse Resp BP Pulse Ox
97.5 F 110 24 131/76 93
04/23/24 07:40 04/23/24 08:29 04/23/24 07:40 04/23/24 08:29 04/23/24 07:40
I&O
04/22/24 04/23/24 04/24/24
06:59 06:59 06:59
Intake Total 480 / 480 360 / 360
Balance 480 / 480 360 / 360
--- NOTE | 2024-04-23 09:20 | PN.CDI ---
CDI
- -
CDI:
Physician Documentation Request
Admit Date: 04/12/24 17:58
Dear Doctor Jazmine,
Please review the following and provide your response in the progress notes.
Clinical Indicators:
Pt admitted with sepsis shock 2/2 possible UTI /ATN/Acute on Chronic Diastolic CHF
CXR 04/20, ' New mild pulmonary edema versus findings due to limited inspiration.'
Progress note 04/21, ' Respiratory: Decreased breath sounds bilateral...Cardiac: Irregular rate and rhythm, tachycardic but less...repeat cxr yesterday and shows increased opacity but given the technique also it could be poor penetration. In any
event we will use IV Lasix 40 mg daily for a few doses...'
Progress note 04/22, ' Decreased breath sounds bilateral...Last chest x-ray showed heart failure. On IV Lasix. Weight down to 74 kg today....Patient still requiring oxygen and some shortness of breath...'
BNP 90890/ Started on IV Lasix 40 mg daily 04/21
Please provide a diagnosis for the above findings/treatment:
Acute on Chronic Diastolic CHF
Chronic Diastolic CHF /Acute noncardiogenic pulmonary edema
Other ( please specify)
Use of terms such as suspected, likely, concern for, or probable (associated with a specific diagnosis that is being evaluated, monitored, or treated as if it exists) are acceptable and can be coded in the inpatient setting, when documented at the
time of discharge.
Thank you,
Loren Moore RN
CDI Specialist
[facility]
Please use your independent medical judgment in providing your response.
--- NOTE | 2024-04-23 09:20 | CON.NEURO4 ---
Addendum entered and electronically signed by Landy Celis DO 04/23/24 17:56:
Studies reviewed.
I have personally examined the patient. I agree with the RED LEAD BURNER's Note.
My addenda: 83 year-old female with intermittent confusion/lethargy and generalized weakness. Agree with exam as documented below--she is mildly dysarthric, lethargic but able to open eyes with prompting and is oriented, follows commands, is
diffusely weak, slightly mores on in LUE. She has several reasons for encephalopathy including septic shock, respiratory insufficiency, JOYCE, and hyponatremia. Ordered MRI brain but unclear if she will tolerate it given her respiratory status.
Reviewed process of MRI, goals of care at length with patient and she would like to attempt it. If unable to tolerate an MRI, can attempt repeat HCT.
Original Note:
Documented by User: Lin Donaldson NP 04/23/24 12:27
Consultation - Neurology 4
-
CONSULTING PHYSICIAN: Landy Celis DO
REFERRING PHYSICIAN: Hospitalists/Dr. Lucero
DICTATED BY: DEVON Quinones
DATE/TIME OF REQUEST: 04/23/24
DATE/TIME OF CONSULTATION: 04/23/24
Reason for Consultation: Altered mental status
History of Present Illness:
This is a 83-year-old right-handed female who has presented to the hospital on 04/12/24 with report of increasing lethargy, generalized weakness, JOYCE, WBC 17, and lactate 4.7. Patient has nonhealing b/l foot wounds and septic shock is presumed due
to left heel ulcer, culture positive for Klebsiella, MSSA. Hospitalization has also been complicated by Afib with RVR and acute hypoxic respiratory insufficiency. Patient has continued to be lethargic and not returning to her baseline, prompting
Neurology consult. Patient appears clinically ill, weraing oxygen. She is drowsy but cooperative and follows commands. She denies any headache, back/neck pain, dizziness, vision changes, speech/swallow difficulty, focal numbness, focal weakness,
chest pain, and palpitations. She endorses shortness of breath and overall extreme fatigue. She denies any history of TIA or stroke in the past. She is taking Eliquis for Afib and does not appear to have missed any doses. She has been followed by
our outpatient Neurology service Dr. 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
Past Medical History: Afib (Eliquis), HTN, HLD, monoclonal gammopathy, moderate aortic regurgitation/insufficiency, severe pulmonary hypertension, IBS, periphral polyneuropathy, restless leg syndrome, arthritis, DVT RLE/PE, lumbar disc disorder,
b/l foot ulcers, neuropathy, B12 deficiency
Surgical History: L TKR, R TKA, R THR, hysterectomy, abdominal/ulcer surgery, R L5-S1 [place] MARYJANE, herniated disc
Family History: Mother- stroke in her 80's. Sibling- sudden age 69. Father- [place] age 50.
Social History: Denies tobacco, alcohol, and illicit drug use.
Allergies: Sulfa, trimethoprim.
Home Medications: See below.
Review of Symptoms:
Patient denies any fever, headache, chest pain, GI or symptoms.
�Per the HPI.�All systems are reviewed negative except above.
Physical Exam:
The patient is afebrile, abdomen is nondistended, breathing is unlabored, skin is warm and dry, +2 BUE edema, fingers are dusky.
NIH Stroke Scale:
I performed the NIH stroke scale on the patient on 04/23/24 at 0945. The patient scored 6 points on the NIH stroke scale assessment, which were assigned as follows: See below.
Neurologic Examination:
The patient is drowsy. Opens eye to voice. She is oriented x 3. Able to state the months of the year, difficulty backwards. Difficulty with calculations. She is able to follow commands and answer questions appropriately. There is no aphasia.
Speech is mildly dysarthric. On cranial nerve assessment, pupils are 3 mm bilateral, round and reactive to light and accommodation. Visual crow are full. Extraocular movements appear slightly reduced to the left. Facial sensations are intact and
bilaterally symmetrical. There does appear to be left facial drooping including left ptosis. Hearing is intact bilaterally to normal conversation volume. Tongue palate and uvula are midline. Sternocleidomastoid strengths are full bilaterally. Motor
strengths are 4/5 right upper, 4-/5 left upper, and 3/5 bilateral lower extremities on medical research Brusett scale. There is drift in BLE. No involuntary movement noted. Deep tendon reflexes are 1+ bilateral upper and lower extremities and
Babinski is absent bilaterally. Sensations of pain, touch, temperature and vibration are intact and bilaterally symmetrical. There was no extinction noted on double simultaneous stimulation. Coordination is intact by finger to nose bilaterally.
Lab Results: See below.
Neuro Imaging:
1. CT Head 04/21/24: No acute intracranial abnormality noted.
Differentials for the patient's presentation include:
1. TME in the setting of septic shock, respiratory insufficiency, JOYCE, and hyponatremia.
2. Some concern for subacute ischemic stroke given left facial drooping, dysarthria, and very slight LUE weakness.
3. Polyneuropathy.
4. CT head negative for hemorrhage.
Patient has the following risk factors for their symptoms: Afib, HTN, HLD, age
IV Tenecteplase/IAT candidacy: Not a candidate due to apixaban usage, no evidence of LVO.
Recommendations:
-Continue Eliquis 5mg BID.
-Goal normotension.
-Goals of care discussion, if appropriate, obtain MRI brain to rule out stroke contributing to encephalopathy. Patient is already on Eliquis and plan of care is unlikely to change, patient does not appear to be able to tolerate MRI brain at this
time.
-Neurological and NIHSS per unit guidelines.
-Provide patient with a stroke education packet.
-LDL goal if there is a stroke is <70. LDL is pending, continue atorvastatin 20mg daily for now.
-Goal normoglycemia, hbA1c is 5.6.
-PT/OT/ST evaluations.
-DVT prophylaxis with OAC.
Discussed patient care with: Dr. Celis, the patient
Vital Signs and Labs
-
Vital Signs and Labs:
Vital Signs
Temp Pulse Resp BP Pulse Ox
97.4 F 126 22 138/82 92
04/23/24 11:02 04/23/24 11:02 04/23/24 11:02 04/23/24 11:02 04/23/24 11:02
Lab Results
04/21/24 04:53
04/23/24 04:15
PT 26.3 Sec (11.4-14.6) H 04/16/24 05:12
INR 2.38 04/16/24 05:12
APTT 36.0 Sec (23.4-35.0) H 04/16/24 05:12
Sodium 140 mmol/L (135-145) 04/23/24 04:15
Potassium 4.1 mmol/L (3.5-5.1) 04/23/24 04:15
BUN 45 mg/dl (7-17) H 04/23/24 04:15
Glucose 91 mg/dl (70-99) 04/23/24 04:15
Calcium 9.5 mg/dl (8.4-10.2) 04/23/24 04:15
Phosphorus 3.3 mg/dl (2.5-4.5) 04/16/24 05:12
Epy-H-Ymbpgwcictz Pept 44067 pg/ml 04/20/24 05:31
Medications
-
Active Medications
Generic Name Dose Route Start Last Admin
Trade Name Freq PRN Reason Stop Dose Admin
Acetaminophen 650 mg 04/14/24 08:26 04/23/24 04:26
Acetaminophen 325 Mg Tablet PO 05/12/24 08:25 650 mg
Q6HPRN PRN Administration
mild pain/ fever>100.5F
Apixaban 5 mg 04/14/24 20:00 04/23/24 08:30
Apixaban (Eliquis) 5 Mg Tablet PO 05/12/24 19:59 5 mg
BID AGUSTÍN Administration
Collagenase 0 applic 04/14/24 08:00 04/22/24 09:27
Collagenase Ointment 2.5 Gram Jar TOPICAL 05/12/24 07:59 1 applic
DAILY AGUSTÍN Administration
Dextrose 12.5 grams 04/12/24 22:37
Dextrose 50% (0.5 Grams/Ml) 50 Ml Syringe IV 05/10/24 22:36
[id number] PRN
hypoglycemia
Protocol
Diltiazem HCl 120 mg 04/20/24 11:00 04/23/24 08:30
Diltiazem 120 Mg Extended Release (24 H) Capsule PO 05/18/24 10:59 120 mg
DAILY AGUSTÍN Administration
Docusate Sodium 100 mg 04/17/24 20:00 04/23/24 08:30
Docusate Sodium 100 Mg Capsule PO 05/15/24 19:59 Not Given
BID AGUSTÍN
Duloxetine HCl 60 mg 04/15/24 08:00 04/23/24 08:30
Duloxetine Delayed Release 60 Mg Capsule PO 05/13/24 07:59 60 mg
DAILY AGUSTÍN Administration
Furosemide 40 mg 04/21/24 11:00 04/23/24 08:30
Furosemide 40 Mg (10 Mg/Ml) 4 Ml Vial IV 05/19/24 10:59 40 mg
DAILY AGUSTÍN Administration
Glucagon 1 mg 04/12/24 22:37
Glucagon 1 Mg Vial IM 05/10/24 22:36
PRN PRN
hypoglycemia
Protocol
Metoprolol Succinate 50 mg 04/17/24 09:00 04/23/24 08:29
Metoprolol 50 Mg Extended Release Tablet PO 05/15/24 08:59 50 mg
BID AGUSTÍN Administration
Metoprolol Tartrate 5 mg 04/13/24 09:49
Metoprolol 5 Mg/5 Ml Vial IV 05/11/24 09:48
Q6HPRN PRN
HR sustained > 120
Pantoprazole Sodium 40 mg 04/12/24 19:30 04/23/24 08:31
Pantoprazole Sodium 40 Mg/10 Ml Vial IV 05/10/24 19:29 40 mg
DAILY AGUSTÍN Administration
Polyethylene Glycol 17 grams 04/17/24 15:00 04/23/24 08:30
Polyethylene Glycol Powder 17 Grams Packet PO 05/15/24 14:59 Not Given
DAILY AGUSTÍN
Sodium Chloride 0 flush 04/12/24 19:00 04/17/24 11:36
Sodium Chloride 0.9% (Flush) Syringe IV 05/10/24 18:59 2 flush
PER PROTOCOL AGUSTÍN Administration
Sodium Chloride 10 ml 04/12/24 20:00 04/23/24 08:31
Sodium Chloride 0.9% (Preservative Free) 10 Ml Vial IV 05/10/24 19:59 10 ml
DAILY AGUSTÍN Administration
Sodium Hypochlorite 0 ml 04/14/24 08:00 04/22/24 09:28
Dakin's Solution 0.125% (1/4 Strength) 473 Ml Bottle TOPICAL 05/12/24 07:59 473 ml
DAILY AGUSTÍN Administration
Zinc Oxide 0 applic 04/21/24 23:00 04/22/24 21:09
Desitin Maximum Strength (Zinc Oxide 40%) Paste TOPICAL 05/19/24 22:59 1 applic
BID AGUSTÍN Administration
Home Medications
�Medication �Instructions �Recorded
atenolol 50 mg tablet 50 mg PO DAILY Blood pressure 08/01/16
atorvastatin 20 mg tablet 20 mg PO QPM High cholesterol 08/01/16
acetaminophen 500 mg tablet 1,000 mg PO TIDPRN PRN mild pain 06/01/22
(Tylenol Extra Strength)
lisinopril 40 mg tablet 40 mg PO DAILY Blood pressure 07/24/22
pregabalin 100 mg capsule 100 mg PO HS Pain 07/24/22
duloxetine 60 mg capsule,delayed 60 mg PO DAILY Pain 09/30/22
release
apixaban 5 mg tablet (Eliquis) 5 mg PO BID Blood clot 04/12/24
prevention/tx
furosemide 20 mg tablet (Lasix) 20 mg PO BID Fluid 04/12/24
Retention/Swelling
lisinopril 20 mg tablet 20 mg PO QPM Blood Pressure 04/12/24
NIH Stroke Score
Subsequent NIH Scale
Date of Subsequent NIH Scale: 04/23/24
Time of Subsequent NIH Scale: 09:45
NIH Stroke Score
Level of Consciousness: 1 - Arousable
LOC Questions: 0-Answers both correctly
LOC Commands: 0-Performs both correctly
Best Horizontal Gaze: 0-Normal
Visual Crow: 0=Normal, no visual loss
Facial Palsy: 2=Partial paralysis
Motor - Right Arm: 0=No drift 10 seconds
Motor - Left Arm: 0=No drift 10 seconds
Motor - Right Le-Drift < 5 seconds
Motor - Left Le-Drift < 5 seconds
Limb Ataxia: 0-Absent
Sensation: 0-Normal
Best Language: 0-No aphasia
Dysarthria: 1-Mild slurring
Extinction and Inattention: 0-No abnormality
Total Score:: 6

Documented by User: Landy Celis, DO 04/23/24 17:51
NIH Stroke Score
NIH Stroke Score
Total Score:: 6
[2024-04-23 11:02] VITALS: BP 138/82
[2024-04-23] MEDS: SANTYL OINTMENT 1 APPLIC TOPICAL (11:10)
[2024-04-23] MEDS: DAKIN'S SOLUTION 0.125% 1/4 STRENGTH 473 ML TOPICAL (11:10)
--- NOTE | 2024-04-23 11:29 | WOUNDNOTE ---
[facility] RN NOTE: Patient visited to follow up on left heel and right toe wound. Patient's left heel was debrided by Dr. Frazier on 04/17. The wound base is light pink and the edges are macerated. At 5 oclock there is some greenish vs black tissue. There
is minimal drainage and no odor was noted. Sure-prep was applied to macerated areas. Right foot wound with adherent yellow wound base. Wound care provided per order and continue to be appropriate. Tubi-seat joiner applied. Heels and sacrum intact.
Incontinence care provided by this procedure writer and RN, Kelsey. Patient was placed in semi-side lying position with heels off-loaded on pillows. Patient on Versa Care Air bed. Patient reports poor appetite. Will update order to add sure-prep around left
heel wound. Will TT pics to Dr. Frazier and update orders as needed. Will continue to follow as needed.
--- NOTE | 2024-04-23 14:04 | WOUNDNOTE ---
RIGHT FOOT/LATERAL GREAT TOE
--- NOTE | 2024-04-23 14:33 | WOUNDNOTE ---
WOC RN NOTE: Dr. Frazier assessed pictures of wounds and request wound care be change and Dakins discontinued. Order updated. EVELIN Crowell made aware. Will continue to follow as needed.
[2024-04-23 15:12] VITALS: BP 114/58
--- NOTE | 2024-04-23 15:39 | CM ---
Reviewed the chart notes. Per [facility], patient has been accepted at [facility] at subacute level. Roel ; Dr. Matt Borrero for precert. CM continues to be available to patient/family and is monitoring
medical plan for needs at discharge.
Plan: Discharge to [facility] when medically stable and precert obtained.
[2024-04-23 19:00] VITALS: BP 130/87
[2024-04-23 23:52] VITALS: BP 139/80
[2024-04-24] MEDS: TYLENOL 650 MG PO ×3 (01:31→20:26)
[2024-04-24 03:07] VITALS: BP 131/76
[2024-04-24 05:16] VITALS: BMI 28.7
[2024-04-24 05:20] LABS: Hematocrit 38.1 % (37.0-47.0); Hemoglobin 12.2 g/dL (12.0-16.0); Mean Corpuscular Hgb 28.6 pg (27.0-31.0); Mean Corpuscular Volume 89.2 fL (81.0-99.0); Mean Platelet Volume 10.1 fL (7.4-10.4); Platelet Count 246 10^3/uL (130-400); Red Blood Cell Count 4.27 10^6/uL (4.20-5.40); Red Cell Dist. Width 21.7 % (11.5-14.5); White Blood Cell Count 9.5 10^3/uL (4.8-10.8)
[2024-04-24 05:43] LABS: Blood Urea Nitrogen 41 mg/dl (7-17); Calcium 9.2 mg/dl (8.4-10.2); Carbon Dioxide 27 mmol/L (22-30); Chloride 101 mmol/L (98-107); Estimated Creatinine Clearance 44 ml/min; Glucose 103 mg/dl (70-99); Potassium 3.5 mmol/L (3.5-5.1); Sodium 139 mmol/L (135-145); eGFR > 60.00
[2024-04-24 07:20] VITALS: BP 144/79
[2024-04-24] MEDS: DESITIN MAXIMUM STRENGTH PASTE 1 APPLIC TOPICAL ×2 (08:30→20:23)
[2024-04-24] MEDS: CYMBALTA DELAYED RELEASE 60 MG PO (08:37)
[2024-04-24] MEDS: TOPROL XL 50 MG PO ×2 (08:37→20:24)
[2024-04-24] MEDS: CARDIZEM CD 120 MG PO (08:37)
[2024-04-24] MEDS: PROTONIX IV 40 MG IV (08:38)
[2024-04-24] MEDS: COLACE PO ×2 (08:38→20:22)
[2024-04-24] MEDS: MIRALAX PO (08:38)
[2024-04-24] MEDS: ELIQUIS 5 MG PO ×2 (08:38→20:24)
[2024-04-24] MEDS: NSS (PRESERVATIVE FREE) 10 ML IV (08:39)
[2024-04-24] MEDS: LASIX 40 MG IV (08:39)
--- NOTE | 2024-04-24 09:52 | W.PN.HOSP.TC ---
Today's Communication/Plan
-
IV antibiotics. IV Lasix. MRI of the brain
Assessment / Plan
Assessment / Plan
General: Awake, alert, NAD
HEENT: Normocephalic, Atraumatic and Dry Mucous Membranes
Respiratory: Decreased breath sounds bilateral; Clear to Auscultation; Negative Wheezes, Rales or Rhonchi
Cardiac: Irregular rate and rhythm, tachycardic but less, and S1/S2, systolic murmur
GI: Soft, Nontender and Nondistended
Musculoskeletal: Left heel wound with some erythema, granulation, scant purulent. Also right fifth digit wound with purulence. No Clubbing, No Cyanosis and No Edema
Neuro: Alert oriented today, still with generalized weakness and mild lethargy but much improved.
Skin: Less cyanotic fingertips bilaterally and toes bilaterally
A/P:
Acute hypoxic respiratory insufficiency -currently on supplemental oxygen, wean off as able. Updated chest x-ray today and a combination of pneumonia and CHF. Weight down to 70.9 kg today. Continue IV Lasix and add IV antibiotics Zosyn and
vancomycin and reevaluate over 48 hours. Discussed with outsole caser and will postpone discharge until respiratory and neurological status improves. Discussed with several family members today at bedside.
Acute metabolic encephalopathy -due to septic shock, critical illness, multiorgan failure. Discontinue as needed Dilaudid and Compazine. Overall improving but also some residual weakness and some focality and cannot rule out stroke or other
pathology send neurology was consulted. Neurology recommended MRI of the brain--> MRI did show acute ischemic infarct, small 5 mm.
Septic shock - due to deep left heel ulcer. Shock resolved. Leukocytosis resolved. Afebrile. Blood cultures negative. Wound culture shows Klebsiella, MSSA. Completed course of antibiotics on 04/20. ID following.
Dysphagia -improved. Cleared for regular diet by speech therapy. Tolerating clears. Can advance diet as tolerated. No bowel obstruction noted on x-ray. On 04/24 dietitian recommended NG tube feeding since patient not eating much. Discussed with
patient and family at bedside and they want to hold off and see how she does over the next few days.
Atrial fibrillation with rapid ventricular response -due to critical illness. Appreciate cardiology input. Still with fast rates. Amiodarone and atenolol discontinued, titrate Toprol-XL per cardiology. Continue Eliquis.
JOYCE -due to septic shock, ATN. Nephrology following. Lisinopril on hold. JOYCE improved but now her creatinine and BUN are rising and I suspect it is due to hypovolemia from anorexia. Received IV fluids. Creatinine stable at 1.0 today.
Drummond removed. No retention on bladder scan.
Hyponatremia -improved.
Elevated troponin:
Elevated troponin likely due to acute non-ischemic myocardial injury due to sepsis. Troponin trending down.
Acute on chronic anemia - Baseline hemoglobin appears to be 10-11 range. Recheck hemoglobin. No evidence of bleeding clinically. Suspect acute anemia due to acute illness. Unclear etiology of chronic normocytic anemia. Will need further
evaluation as an outpatient.
Family tells me that is in the works of bone marrow biopsy for suspicions of non-Hodgkin lymphoma
Chronic heart failure preserved EF -hold Lasix given rising creatinine.
Chronic left foot heel neurotrophic wound -podiatry input noted. Underwent bedside debridement by podiatry on 04/16.
NOMI results noted. Left TBI severely reduced at 0. Findings may indicate small vessel disease. Right TBI moderately reduced. Appreciate vascular surgery input. Recommend outpatient follow-up.
MRI does not show osteomyelitis, but does show significant plantar fasciitis with adjacent patchy reactive marrow edema.
Chronic right foot fifth metatarsal wound -MRI does not show abscess or osteomyelitis.
Digital cyanosis -patient states she has had this for several months. Suspect underlying Raynaud's phenomena. Treat supportively with warming.
DVT prophylaxis-Eliquis
CODE STATUS-full code. Discussed again about CODE STATUS and patient wishes to remain full code. Discussed goals of care with patient during this hospital stay again and she wants to remain full code.
Total time spent on today's encounter was 52 minutes which included time spent in counseling the patient/family regarding diagnosis and treatment plan as listed above, goals of care, and symptom management. Case was discussed with nursing staff,
specialists, and care coordinators/case management. All labs and imaging personally reviewed by me. Remainder the time spent in detailed review of previous records, lab data, imaging, and other medical provider documentation.
Anticipated Discharge: > 48 hours
Subjective/Interval History
-
Date of Service: April 24, 2024
Patient with some shortness of breath and very weak and generalized weakness present. Afebrile
Objective Data
-
Labs:
Laboratory Results
04/24/24
04:51
WBC 9.5
Hgb 12.2
Hct 38.1
Plt Count 246
Sodium 139
Potassium 3.5
Chloride 101
Carbon Dioxide 27
BUN 41 H
Creatinine 0.9
Glucose 103 H
Calcium 9.2
Vital Signs:
Vital Signs
Temp Pulse Resp BP Pulse Ox
97.3 F 90 22 144/79 94
04/24/24 07:20 04/24/24 08:37 04/24/24 07:20 04/24/24 08:37 04/24/24 07:20
I&O
04/23/24 04/24/24 04/25/24
06:59 06:59 06:59
Intake Total 360 / 360 720 / 720
Balance 360 / 360 720 / 720
[2024-04-24 11:23] VITALS: BP 147/66
[2024-04-24] MEDS: SANTYL OINTMENT 1 APPLIC TOPICAL (12:00)
[2024-04-24] MEDS: DAKIN'S SOLUTION 0.125% 1/4 STRENGTH 473 ML TOPICAL (12:00)
--- NOTE | 2024-04-24 12:30 | PHA.VAN.IN ---
Assessment
- Assessment
Renal Function: Appears similar to baseline
Concomitant Antimicrobials: piperacillin/tazobactam
AUC Dosing Plan
- Dosing Variables
Dosing Weight (kg): 71
Dosing CrCl (ml/min): 44
Vd coefficient (L/kg): 0.7
- Empiric Dosing
Maintenance Regimen: Vanc 1000mg Q24H - first dose now then 0600 in lieu of loading dose
Estimated AUC (mcg*h/mL): 502
Estimated Peak (mcg*h/mL): 32.2
Estimated Trough (mcg/ml): 12.6
Estimated Half Life (H): 16.9
- Monitoring
No levels ordered at this time: consider levels in next few days
MRSA Screen: Ordered per protocol
Pharmacokinetics Vancomycin I
- -
Patient Age: 83
Patient Sex: Female
Vancomycin Day #: 1
Indication: Pulmonary/Respiratory
Requesting Provider: Dr. Lucero
Pertinent Antimicrobial Allergies:
sulfonamide antibiotics - rash in 1961
Height / Weight:
Height 5 ft 2 in
Actual Weight 70.987 kg
- Vital Signs / Lab Results
Temp Pulse Resp BP Pulse Ox
97.3 F 108 20 147/66 99
04/24/24 11:23 04/24/24 11:23 04/24/24 11:23 04/24/24 11:23 04/24/24 11:23
Lab Results - Hematology
04/24/24
04:51
WBC 9.5
Lab Results - Chemistry
04/22/24 04/23/24 04/24/24
03:55 04:15 04:51
BUN 48 H 45 H 41 H
Creatinine 1.0 1.0 0.9
Estimated Creat Clear 41 40 44
[2024-04-24] MEDS: ZOSYN 50 IV ×3 (13:23→23:09)
--- NOTE | 2024-04-24 14:01 | W.PN.NEURO.1 ---
Today's Communication / Plan
-
Await eventual MRI of brain to confirm absence of structural abnormality producing symptoms
Continue apixaban
Neuro Assessment/Plan
Assessment
83 year-old female with intermittent confusion/lethargy and generalized weakness. She has several reasons for encephalopathy including septic shock, respiratory insufficiency, JOYCE, and hyponatremia. The diagnosis currently is toxic metabolic
encephalopathy.
Plan
Await eventual MRI of brain to confirm absence of structural abnormality producing symptoms
Continue apixaban
We will follow as needed. Please contact us with additional questions or issues.
Subjective/Objective
Subjective Data
Date of Service: April 24, 2024
Objective Data
Vital Signs
Temp Pulse Resp BP Pulse Ox
36.3 C 108 20 147/66 99
04/24/24 11:23 04/24/24 11:23 04/24/24 11:23 04/24/24 11:23 04/24/24 11:23
Lab Results
04/24/24 04:51
04/24/24 04:51
PT 26.3 Sec (11.4-14.6) H 04/16/24 05:12
INR 2.38 04/16/24 05:12
APTT 36.0 Sec (23.4-35.0) H 04/16/24 05:12
Sodium 139 mmol/L (135-145) 04/24/24 04:51
Potassium 3.5 mmol/L (3.5-5.1) 04/24/24 04:51
BUN 41 mg/dl (7-17) H 04/24/24 04:51
Glucose 103 mg/dl (70-99) H 04/24/24 04:51
Calcium 9.2 mg/dl (8.4-10.2) 04/24/24 04:51
Phosphorus 3.3 mg/dl (2.5-4.5) 04/16/24 05:12
Vci-S-Gdssawqjjua Pept 00351 pg/ml 04/20/24 05:31
Patient Allergies
Sulfa (Sulfonamide Antibiotics) Allergy (Verified 04/12/24 15:39)
Rash-1961
sulfamethoxazole Allergy (Verified 04/12/24 15:39)
Rash-1961
trimethoprim Allergy (Verified 04/12/24 15:39)
Rash-1961
Data Reviewed
-
CT Head: Report Reviewed
Labs: Report Reviewed
Reviewed with: Physician
Old Records: Summarized
--- NOTE | 2024-04-24 15:22 | CM ---
Sussy Cerda has a new pneumonia and pleural effusion. MRI in process; family was waiting for her to return, but decided to leave. They left a note for Sussy Cerda when she returns to her room.
and children updated about discharge to [facility] when medically cleared.
CM continues to follow and remains available to patient/family. Will update family re: medical plan for any changing needs.
[employer] authorization for Subacute level will need to be obtained prior to transfer.
[facility] NPI- [id number]
Dr. Matt Borrero NPI- [id number]
Plan: CM to obtain [employer] authorization for Subacute level rehab at [facility] prior to transfer. Anticipate ambulance vs [facility] Van transport pending mobility status.
[2024-04-24 15:55] VITALS: BP 145/72
[2024-04-24 19:27] VITALS: BP 141/83
[2024-04-24 23:07] VITALS: BP 134/80
[2024-04-25] VITALS (7 sets, daily range): BP systolic 130–147; BP diastolic 68–89; BMI 28.2
[2024-04-25] MEDS: TYLENOL 650 MG PO (02:26)
[2024-04-25] MEDS: ZOSYN 50 IV ×4 (05:31→23:13)
[2024-04-25 06:03] LABS: % Basophils 0.3 % (0-2); % Eosinophils 1.7 % (0-6); % Immature Granulocytes 0.7 % (0-0.5); % Lymphocytes 8.4 % (20.5-51.1); % Neutrophils 76.9 % (42.2-75.2); Absolute Eosinophils 0.2 10^3/uL (0-0.7); Absolute Immature Granulocytes 0.1 10^3/uL (0-0.05); Absolute Lymphocytes 0.9 10^3/uL (1.2-3.4); Absolute Monocytes 1.3 10^3/uL (0.1-0.6); Absolute Neutrophils 8.1 10^3/uL (1.4-6.5); Hematocrit 40.5 % (37.0-47.0); Hemoglobin 12.8 g/dL (12.0-16.0); Mean Corp Hgb Conc. 31.6 g/dL (33.0-37.0); Mean Corpuscular Hgb 28.7 pg (27.0-31.0); Mean Corpuscular Volume 90.8 fL (81.0-99.0); Mean Platelet Volume 10.3 fL (7.4-10.4); Nucleated Red Blood Cells % 0.3 %; Platelet Count 234 10^3/uL (130-400); Red Blood Cell Count 4.46 10^6/uL (4.20-5.40); Red Cell Dist. Width 21.2 % (11.5-14.5); White Blood Cell Count 10.5 10^3/uL (4.8-10.8)
[2024-04-25 06:28] LABS: Blood Urea Nitrogen 35 mg/dl (7-17); Calcium 9.2 mg/dl (8.4-10.2); Carbon Dioxide 34 mmol/L (22-30); Chloride 97 mmol/L (98-107); Estimated Creatinine Clearance 50 ml/min; Glucose 107 mg/dl (70-99); Potassium 3.4 mmol/L (3.5-5.1); Sodium 140 mmol/L (135-145); eGFR > 60.00
[2024-04-25] MEDS: CARDIZEM CD 120 MG PO (08:02)
[2024-04-25] MEDS: TOPROL XL 50 MG PO ×2 (08:02→20:37)
[2024-04-25] MEDS: ELIQUIS 5 MG PO ×2 (08:02→20:37)
[2024-04-25] MEDS: CYMBALTA DELAYED RELEASE 60 MG PO (08:02)
[2024-04-25] MEDS: PROTONIX IV 40 MG IV (08:02)
[2024-04-25] MEDS: NSS (PRESERVATIVE FREE) 10 ML IV (08:02)
[2024-04-25] MEDS: SANTYL OINTMENT 1 APPLIC TOPICAL (08:03)
[2024-04-25] MEDS: LASIX 40 MG IV (08:04)
[2024-04-25] MEDS: COLACE PO ×2 (08:05→20:29)
[2024-04-25] MEDS: MIRALAX PO (08:05)
[2024-04-25] MEDS: DESITIN MAXIMUM STRENGTH PASTE 1 APPLIC TOPICAL ×2 (08:10→20:38)
[2024-04-25] MEDS: DAKIN'S SOLUTION 0.125% 1/4 STRENGTH 473 ML TOPICAL (08:11)
--- NOTE | 2024-04-25 09:12 | W.PN.HOSP.TC ---
Addendum entered and electronically signed by Ridge Lucero MD 04/25/24 18:15:
Consulted IR for possible L thoracentesis in am.
Original Note:
Today's Communication/Plan
-
IV antibiotics. IV Lasix. Anticoagulant
Assessment / Plan
Assessment / Plan
General: Awake, alert, NAD
HEENT: Normocephalic, Atraumatic and Dry Mucous Membranes
Respiratory: Decreased breath sounds bilateral; Clear to Auscultation; Negative Wheezes, Rales or Rhonchi
Cardiac: Irregular rate and rhythm, tachycardic but less, and S1/S2, systolic murmur
GI: Soft, Nontender and Nondistended
Musculoskeletal: Left heel wound with some erythema, granulation, scant purulent. Also right fifth digit wound with purulence. No Clubbing, No Cyanosis and No Edema
Neuro: Alert oriented today, still with generalized weakness and mild lethargy but much improved.
Skin: Less cyanotic fingertips bilaterally and toes bilaterally
A/P:
Acute hypoxic respiratory insufficiency -currently on 4 L oxygen, wean off as able. Updated chest x-ray today and a combination of pneumonia and CHF. Weight down to 69.8 kg today. Continue IV Lasix and IV antibiotics Zosyn and vancomycin and
reevaluate over 24-48 hours. Discussed with immigration case worker and will postpone discharge until respiratory and neurological status improves. Discussed with several family members yesterday at bedside.
Acute metabolic encephalopathy/stroke-multifactorial due to stroke and septic shock, critical illness, multiorgan failure, medication. Discontinue as needed Dilaudid and Compazine. Overall improving but also some residual weakness and some
focality and cannot rule out stroke so neurology was consulted. Neurology recommended MRI of the brain--> MRI did show acute ischemic infarct, small 5 mm.
Septic shock - due to deep left heel ulcer. Shock resolved. Leukocytosis resolved. Afebrile. Blood cultures negative. Wound culture shows Klebsiella, MSSA. Completed course of antibiotics on 04/20. ID following.
Dysphagia -improved. Cleared for regular diet by speech therapy. Tolerating clears. Can advance diet as tolerated. No bowel obstruction noted on x-ray. On 04/24 dietitian recommended NG tube feeding since patient not eating much. Discussed with
patient and family at bedside and they want to hold off and see how she does over the next few days.
Atrial fibrillation with rapid ventricular response -due to critical illness. Appreciate cardiology input. Still with fast rates. Amiodarone and atenolol discontinued, titrate Toprol-XL per cardiology. Continue Eliquis.
JOYCE -due to septic shock, ATN. Nephrology following. Lisinopril on hold. JOYCE improved but now her creatinine and BUN are rising and I suspect it is due to hypovolemia from anorexia. Received IV fluids. Creatinine stable at 1.0 today.
Drummond removed. No retention on bladder scan.
Hyponatremia -improved.
Elevated troponin:
Elevated troponin likely due to acute non-ischemic myocardial injury due to sepsis. Troponin trending down.
Acute on chronic anemia - Baseline hemoglobin appears to be 10-11 range. Recheck hemoglobin. No evidence of bleeding clinically. Suspect acute anemia due to acute illness. Unclear etiology of chronic normocytic anemia. Will need further
evaluation as an outpatient.
Family tells me that is in the works of bone marrow biopsy for suspicions of non-Hodgkin lymphoma
Chronic heart failure preserved EF -hold Lasix given rising creatinine.
Chronic left foot heel neurotrophic wound -podiatry input noted. Underwent bedside debridement by podiatry on 04/16.
NOMI results noted. Left TBI severely reduced at 0. Findings may indicate small vessel disease. Right TBI moderately reduced. Appreciate vascular surgery input. Recommend outpatient follow-up.
MRI does not show osteomyelitis, but does show significant plantar fasciitis with adjacent patchy reactive marrow edema.
Chronic right foot fifth metatarsal wound -MRI does not show abscess or osteomyelitis.
Digital cyanosis -patient states she has had this for several months. Suspect underlying Raynaud's phenomena. Treat supportively with warming.
DVT prophylaxis-Eliquis
CODE STATUS-full code. Discussed again about CODE STATUS and patient wishes to remain full code. Discussed goals of care with patient during this hospital stay again and she wants to remain full code.
Total time spent on today's encounter was 52 minutes which included time spent in counseling the patient/family regarding diagnosis and treatment plan as listed above, goals of care, and symptom management. Case was discussed with nursing staff,
specialists, and care coordinators/case management. All labs and imaging personally reviewed by me. Remainder the time spent in detailed review of previous records, lab data, imaging, and other medical provider documentation.
Anticipated Discharge: > 48 hours
Subjective/Interval History
-
Date of Service: April 25, 2024
Patient still on 4 L of oxygen. Remains with generalized weakness. Afebrile
Objective Data
-
Labs:
Laboratory Results
04/25/24
05:43
WBC 10.5
Hgb 12.8
Hct 40.5
Plt Count 234
Sodium 140
Potassium 3.4 L
Chloride 97 L
Carbon Dioxide 34 H
BUN 35 H
Creatinine 0.8
Glucose 107 H
Calcium 9.2
Vital Signs:
Vital Signs
Temp Pulse Resp BP Pulse Ox
97.4 F 122 18 130/85 94
04/25/24 03:54 04/25/24 08:02 04/25/24 03:54 04/25/24 08:02 04/25/24 03:54
I&O
04/24/24 04/25/24 04/26/24
06:59 06:59 06:59
Intake Total 720 / 720 1080 / 1080
Balance 720 / 720 1080 / 1080
[2024-04-25] MEDS: KCL 40 MEQ PO (10:10)
--- NOTE | 2024-04-25 11:54 | PHA.VAN.FU ---
Addendum entered and electronically signed by Kirill Wynne [facility] 04/25/24 12:04:
UPDATE:After review of medication administration record, Vancomycin dosing was timed to start today. Today is day one of IV vancomycin.
Original Note:
Vancomycin Assessment / Plan
- Assessment
Renal Function: SCR Decreasing (0.9>0.8)
WBC's are: Trending Up (9.5>10.5)
In the past 24 hrs, patient has been: Afebrile
Concomitant Antimicrobials: Piperacillin-tazobactam
- Dosing Plan
Continue: Vancomycin 1000mg IV Q24hrs
- Monitoring Plan
No level(s) ordered at this time: Check levels according to vancomycin dosing protocol
- Follow Up
Pharmacy will continue to follow.
Vancomycin Follow UP
- -
Patient Age: 83
Patient Sex: Female
Vancomycin Day #: 2
Indication: Pulmonary/Respiratory (MRSA Nares PCR negative)
Requesting Provider: Dr. Lucero
Pertinent Antimicrobial Allergies:
sulfonamide antibiotics - rash in 1962
Height / Weight:
Height 5 ft 2 in
Actual Weight 69.853 kg
IBW in k.1
Adjusted BW in k
Pertinent Past Medical History: Septic shock - due to deep left heel ulcer during this admission tx abx
- Vital Signs / Lab Results
Temp Pulse Resp BP Pulse Ox
98.2 F 122 20 130/85 92
04/25/24 07:30 04/25/24 08:02 04/25/24 07:30 04/25/24 08:02 04/25/24 08:10
Lab Results - Hematology
04/24/24 04/25/24
04:51 05:43
WBC 9.5 10.5
Lab Results - Chemistry
04/23/24 04/24/24 04/25/24
04:15 04:51 05:43
BUN 45 H 41 H 35 H
Creatinine 1.0 0.9 0.8
Estimated Creat Clear 40 44 50
Microbiology Results
04/24/24 13:01 Nasal Screen MRSA (PCR) - Final
Nose MRSA not detected - performed by PCR methodology.
Therapeutic Drug Monitoring
Random Vancomycin 15.3 ug/ml 04/13/24 04:32
[2024-04-25] MEDS: VANCOCIN 200 IV (13:20)
[2024-04-26] VITALS (7 sets, daily range): BP systolic 107–151; BP diastolic 74–94; BMI 27.3
[2024-04-26] MEDS: TYLENOL 650 MG PO ×2 (01:39→14:44)
[2024-04-26] MEDS: LOPRESSOR 5 MG IV (03:09)
--- NOTE | 2024-04-26 03:10 | PTCARENOTE ---
Pts HR frequently going up 120-130s- IV lopressor 5 mg given per order.
[2024-04-26] MEDS: ZOSYN 50 IV ×2 (05:19→11:52)
--- NOTE | 2024-04-26 05:26 | PTCARENOTE ---
Pt with new red petechial rash in groin area, abd and back area. House ASSOCIATE DIRECTOR OF BIOSTATISTICS aware.
[2024-04-26] MEDS: VANCOCIN 200 IV (06:03)
[2024-04-26 07:56] LABS: % Basophils 0.7 % (0-2); % Immature Granulocytes 0.8 % (0-0.5); % Lymphocytes 9.8 % (20.5-51.1); % Monocytes 12.3 % (1.7-9.3); % Neutrophils 74.4 % (42.2-75.2); Absolute Basophils 0.1 10^3/uL (0-0.2); Absolute Eosinophils 0.2 10^3/uL (0-0.7); Absolute Immature Granulocytes 0.1 10^3/uL (0-0.05); Absolute Lymphocytes 0.8 10^3/uL (1.2-3.4); Absolute Monocytes 1.1 10^3/uL (0.1-0.6); Absolute Neutrophils 6.4 10^3/uL (1.4-6.5); Hematocrit 42.5 % (37.0-47.0); Hemoglobin 13.4 g/dL (12.0-16.0); Mean Corp Hgb Conc. 31.5 g/dL (33.0-37.0); Mean Corpuscular Hgb 28.8 pg (27.0-31.0); Mean Corpuscular Volume 91.4 fL (81.0-99.0); Mean Platelet Volume 10.5 fL (7.4-10.4); Nucleated Red Blood Cells % 0 %; Platelet Count 216 10^3/uL (130-400); Red Blood Cell Count 4.65 10^6/uL (4.20-5.40); Red Cell Dist. Width 21.3 % (11.5-14.5); White Blood Cell Count 8.6 10^3/uL (4.8-10.8)
[2024-04-26] MEDS: CYMBALTA DELAYED RELEASE 60 MG PO (08:16)
[2024-04-26] MEDS: PROTONIX 40 MG PO (08:16)
[2024-04-26] MEDS: TOPROL XL 50 MG PO ×2 (08:17→19:22)
[2024-04-26] MEDS: ELIQUIS 5 MG PO ×2 (08:17→19:21)
[2024-04-26] MEDS: CARDIZEM CD 120 MG PO (08:17)
[2024-04-26] MEDS: LASIX 40 MG IV (08:17)
[2024-04-26] MEDS: MIRALAX PO (08:18)
[2024-04-26] MEDS: COLACE PO ×2 (08:18→19:19)
[2024-04-26] MEDS: DAKIN'S SOLUTION 0.125% 1/4 STRENGTH 1 ML TOPICAL (08:20)
[2024-04-26] MEDS: SANTYL OINTMENT 1 APPLIC TOPICAL (08:21)
[2024-04-26] MEDS: DESITIN MAXIMUM STRENGTH PASTE 1 APPLIC TOPICAL ×2 (08:21→19:25)
[2024-04-26 08:37] LABS: Blood Urea Nitrogen 28 mg/dl (7-17); Calcium 8.9 mg/dl (8.4-10.2); Carbon Dioxide 37 mmol/L (22-30); Chloride 94 mmol/L (98-107); Estimated Creatinine Clearance 49 ml/min; Glucose 129 mg/dl (70-99); Potassium 3.2 mmol/L (3.5-5.1); Sodium 140 mmol/L (135-145); eGFR > 60.00
--- NOTE | 2024-04-26 10:37 | W.PN.HOSP.TC ---
Addendum entered and electronically signed by Ridge Lucero MD 04/26/24 16:12:
Acute on chronic diastolic congestive heart failure.
Original Note:
Today's Communication/Plan
-
Left thoracentesis. Diuretics and antibiotics. Hospice care consult.
Assessment / Plan
Assessment / Plan
General: Awake, alert, NAD but looks acutely and chronically ill.
HEENT: Normocephalic, Atraumatic and Dry Mucous Membranes
Respiratory: Decreased breath sounds bilateral; Clear to Auscultation; Negative Wheezes, Rales or Rhonchi
Cardiac: Irregular rate and rhythm, and S1/S2, systolic murmur
GI: Soft, Nontender and Nondistended
Musculoskeletal: Left heel wound with some erythema, granulation, scant purulent. Also right fifth digit wound with purulence. No Clubbing, No Cyanosis and No Edema
Neuro: Alert oriented today, still with generalized weakness and mild lethargy but much improved.
Skin: Less cyanotic fingertips bilaterally and toes bilaterally
A/P:
Acute hypoxic respiratory insufficiency -currently on 4 L oxygen. Updated chest x-ray and a combination of pneumonia and CHF and left pleural effusion. Weight down to 67.6 kg today. Change IV antibiotics to oral. Change IV Lasix to oral. IR
consulted for left thoracentesis and she had thoracentesis today. Continue wean oxygen as able. Discussed with multiple family members at length and specially her son Solo and patient's and I brought the subject of hospice care at this
point since quite frankly she appears to be hospice candidate. They do not want to change CODE STATUS yet but they are willing to discuss with hospice and they are processing all the information and will get back to us over the next 24 hours.
Acute on chronic heart failure preserved EF -on Lasix and creatinine has remained stable.
Left pleural effusion-s/p thoracentesis. Studies sent today from pleural fluid.
Acute metabolic encephalopathy/stroke-multifactorial due to stroke and septic shock, critical illness, multiorgan failure, medication. Discontinue as needed Dilaudid and Compazine. Neurology consulted. MRI did show acute ischemic infarct, small 5
mm.
Septic shock - due to deep left heel ulcer. Shock resolved. Leukocytosis resolved. Afebrile. Blood cultures negative. Wound culture shows Klebsiella, MSSA. Completed course of antibiotics on 04/20. ID following.
Dysphagia -improved. Cleared for regular diet by speech therapy. Tolerating clears. Can advance diet as tolerated. No bowel obstruction noted on x-ray. On 04/24 dietitian recommended NG tube feeding since patient not eating much. I will start
her on mirtazapine at this might help her only for appetite but adjustment disorder as well. I told NGT for feedings would be last resort and even then it would be a temporary measure.
Atrial fibrillation with rapid ventricular response -due to critical illness. Appreciate cardiology input. Still with fast rates. Amiodarone and atenolol discontinued, titrate Toprol-XL per cardiology. Continue Eliquis.
JOYCE -due to septic shock, ATN. Nephrology following. Lisinopril on hold. JOYCE improved but now her creatinine and BUN are rising and I suspect it is due to hypovolemia from anorexia. Received IV fluids. Creatinine stable at 1.0 today.
Drummond removed. No retention on bladder scan.
Hyponatremia -improved.
Elevated troponin:
Elevated troponin likely due to acute non-ischemic myocardial injury due to sepsis. Troponin trending down.
Acute on chronic anemia - Baseline hemoglobin appears to be 10-11 range. Recheck hemoglobin. No evidence of bleeding clinically. Suspect acute anemia due to acute illness. Unclear etiology of chronic normocytic anemia. Will need further
evaluation as an outpatient.
Family tells me that is in the works of bone marrow biopsy for suspicions of non-Hodgkin lymphoma
Chronic left foot heel neurotrophic wound -podiatry input noted. Underwent bedside debridement by podiatry on 04/16.
NOMI results noted. Left TBI severely reduced at 0. Findings may indicate small vessel disease. Right TBI moderately reduced. Appreciate vascular surgery input. Recommend outpatient follow-up.
MRI does not show osteomyelitis, but does show significant plantar fasciitis with adjacent patchy reactive marrow edema.
Chronic right foot fifth metatarsal wound -MRI does not show abscess or osteomyelitis.
Digital cyanosis -patient states she has had this for several months. Suspect underlying Raynaud's phenomena. Treat supportively with warming.
DVT prophylaxis-Eliquis
CODE STATUS-full code. Discussed again about CODE STATUS and patient wishes to remain full code. Discussed goals of care with patient during this hospital stay again and she wants to remain full code.
Total time spent on today's encounter was 52 minutes which included time spent in counseling the patient/family regarding diagnosis and treatment plan as listed above, goals of care, and symptom management. Case was discussed with nursing staff,
specialists, and care coordinators/case management. All labs and imaging personally reviewed by me. Remainder the time spent in detailed review of previous records, lab data, imaging, and other medical provider documentation.
Anticipated Discharge: 24 - 48 hours
Subjective/Interval History
-
Date of Service: April 26, 2024
Patient remains with generalized weakness. Still requiring oxygen. Denies chest pain. Decreased appetite. Afebrile. Looks frail overall
Objective Data
-
Labs:
Laboratory Results
04/26/24
07:29
WBC 8.6
Hgb 13.4
Hct 42.5
Plt Count 216
Sodium 140
Potassium 3.2 L
Chloride 94 L
Carbon Dioxide 37 H
BUN 28 H
Creatinine 0.8
Glucose 129 H
Calcium 8.9
Vital Signs:
Vital Signs
Temp Pulse Resp BP Pulse Ox
97.6 F 107 24 132/81 96
04/26/24 10:03 04/26/24 10:03 04/26/24 10:03 04/26/24 10:03 04/26/24 10:03
I&O
04/25/24 04/26/24 04/27/24
06:59 06:59 06:59
Intake Total 1080 / 1080 900 / 900
Balance 1080 / 1080 900 / 900
[2024-04-26 12:00] LABS: Body Fluid pH 7.59
[2024-04-26 12:14] LABS: Body Fluid Glucose 117 mg/dl; Body Fluid LDH < 90 U/L; Body Fluid Protein 2.1 g/dl
[2024-04-26 12:35] LABS: Body Fluid WBC 276 /CUMM
[2024-04-26 12:36] LABS: Body Fluid Mononuclear 92.4 %; Body Fluid Polymorphonuclear 7.6 %
[2024-04-26] MEDS: KCL 40 MEQ PO (13:15)
[2024-04-26 13:18] LABS: Body Fluid Second Tech BP
[2024-04-26] MEDS: AUGMENTIN 875 MG/125 MG 1 TABLET PO (19:21)
[2024-04-26] MEDS: REMERON 7.5 MG PO (21:54)
[2024-04-27] MEDS: LOPRESSOR 5 MG IV (00:31)
--- NOTE | 2024-04-27 01:43 | PTCARENOTE ---
Addendum entered by Pam Eugene 04/27/24 05:46:
HR frequently going up to 120s but not sustaining. House PATTERN HANGER aware PO cardizem given early.
Original Note:
Pts HR frequently going up 120-130s- IV lopressor given per order, HR currently in 110s.
[2024-04-27 03:24] VITALS: BP 134/86
[2024-04-27] MEDS: CARDIZEM CD 120 MG PO (05:43)
[2024-04-27 05:48] LABS: % Basophils 0.8 % (0-2); % Eosinophils 1.8 % (0-6); % Immature Granulocytes 0.6 % (0-0.5); % Lymphocytes 11.8 % (20.5-51.1); % Monocytes 10.5 % (1.7-9.3); % Neutrophils 74.5 % (42.2-75.2); Absolute Basophils 0.1 10^3/uL (0-0.2); Absolute Eosinophils 0.2 10^3/uL (0-0.7); Absolute Immature Granulocytes 0.1 10^3/uL (0-0.05); Absolute Monocytes 0.9 10^3/uL (0.1-0.6); Absolute Neutrophils 6.2 10^3/uL (1.4-6.5); Hematocrit 40.1 % (37.0-47.0); Hemoglobin 12.6 g/dL (12.0-16.0); Mean Corp Hgb Conc. 31.4 g/dL (33.0-37.0); Mean Corpuscular Hgb 28.7 pg (27.0-31.0); Mean Corpuscular Volume 91.3 fL (81.0-99.0); Nucleated Red Blood Cells % 0 %; Platelet Count 217 10^3/uL (130-400); Red Blood Cell Count 4.39 10^6/uL (4.20-5.40); Red Cell Dist. Width 20.2 % (11.5-14.5); White Blood Cell Count 8.3 10^3/uL (4.8-10.8)
[2024-04-27 06:00] VITALS: BMI 26.1
[2024-04-27 06:10] LABS: Blood Urea Nitrogen 24 mg/dl (7-17); Calcium 8.8 mg/dl (8.4-10.2); Chloride 92 mmol/L (98-107); Estimated Creatinine Clearance 49 ml/min; Glucose 99 mg/dl (70-99); Potassium 3.3 mmol/L (3.5-5.1); Sodium 140 mmol/L (135-145); eGFR > 60.00
[2024-04-27 06:20] LABS: Carbon Dioxide 35 mmol/L (22-30)
[2024-04-27 07:35] VITALS: BP 146/78
[2024-04-27] MEDS: SANTYL OINTMENT 1 APPLIC TOPICAL (07:37)
[2024-04-27] MEDS: DAKIN'S SOLUTION 0.125% 1/4 STRENGTH 473 ML TOPICAL (07:38)
[2024-04-27] MEDS: LASIX 40 MG PO (09:50)
[2024-04-27] MEDS: CYMBALTA DELAYED RELEASE 60 MG PO (09:50)
[2024-04-27] MEDS: AUGMENTIN 875 MG/125 MG 1 TABLET PO (09:50)
[2024-04-27] MEDS: DESITIN MAXIMUM STRENGTH PASTE 1 APPLIC TOPICAL ×2 (09:51→20:27)
[2024-04-27] MEDS: ELIQUIS 5 MG PO ×2 (09:51→20:25)
[2024-04-27] MEDS: COLACE PO ×2 (09:51→20:16)
[2024-04-27] MEDS: TOPROL XL 50 MG PO ×2 (09:52→20:26)
[2024-04-27] MEDS: MIRALAX PO (09:52)
[2024-04-27] MEDS: PROTONIX 40 MG PO (09:52)
--- NOTE | 2024-04-27 09:54 | W.PN.HOSP.TC ---
Addendum entered and electronically signed by Jose Angel uGerra DO 04/27/24 10:10:
Informed nurse of a maculopapular rash.
Reexamined patient and noted rash in bilateral groin, right upper extremity, upper back.
Etiology unclear. Rule out drug rash. Antibiotics discontinued. Topical hydrocortisone. Monitor for now.
Original Note:
Today's Communication/Plan
-
Discontinue antibiotics
Hospice consult
Continue PT
Assessment / Plan
Assessment / Plan
General: Awake, alert, NAD but looks acutely and chronically ill.
HEENT: Normocephalic, Atraumatic and Dry Mucous Membranes
Respiratory: Decreased breath sounds bilateral; Clear to Auscultation; Negative Wheezes, Rales or Rhonchi
Cardiac: Irregular rate and rhythm, and S1/S2, systolic murmur
GI: Soft, Nontender and Nondistended
Musculoskeletal: Left heel wound with some erythema, granulation, scant purulent. Also right fifth digit wound with purulence. No Clubbing, No Cyanosis and No Edema
Neuro: Alert oriented today, still with generalized weakness and mild lethargy but much improved.
Skin: Less cyanotic fingertips bilaterally and toes bilaterally
Acute hypoxic respiratory insufficiency -currently on 4 L oxygen. Weight down to 64.6 kg today. Continue wean oxygen as able.
Repeat chest x-ray 04/26 shows improvement in left lower lobe infiltrate, consistent with improving pulmonary edema. Clinically doubt pneumonia given lack of cough, normal white blood cell count, afebrile. Rapid improvement in chest x-ray argues
against pneumonia. Discontinue further antibiotics.
Acute on chronic heart failure preserved EF -on Lasix and creatinine has remained stable. Now on oral Lasix.
Left pleural effusion -Left-sided thoracentesis completed 04/26, 850 cc straw-colored fluid removed.
Acute metabolic encephalopathy/acute stroke -multifactorial due to stroke and septic shock, critical illness, multiorgan failure, medication. Discontinue as needed Dilaudid and Compazine. Neurology consulted. MRI did show acute ischemic infarct,
small 5 mm.
Septic shock - due to deep left heel ulcer. Shock resolved. Leukocytosis resolved. Afebrile. Blood cultures negative. Wound culture shows Klebsiella, MSSA. Completed course of antibiotics on 04/20. ID following.
Dysphagia -improved. Tolerating regular diet. No bowel obstruction noted on x-ray. On 04/24 dietitian recommended NG tube feeding since patient not eating much. I will start her on mirtazapine at this might help her only for appetite but
adjustment disorder as well. I told NGT for feedings would be last resort and even then it would be a temporary measure.
Atrial fibrillation with rapid ventricular response -due to critical illness. Appreciate cardiology input. Still with fast rates. Amiodarone and atenolol discontinued, titrate Toprol-XL per cardiology. Continue Eliquis. Cardiology signed off
04/20.
JOYCE -due to septic shock, ATN. Nephrology following. Lisinopril on hold. JOYCE improved but now her creatinine and BUN are rising and I suspect it is due to hypovolemia from anorexia. Received IV fluids. Creatinine stable at 1.0 today.
Drummond removed. No retention on bladder scan.
Hyponatremia -improved.
Hypokalemia -continue repletion. Check magnesium.
Elevated troponin:
Elevated troponin likely due to acute non-ischemic myocardial injury due to sepsis. Troponin trending down.
Acute on chronic anemia - Baseline hemoglobin appears to be 10-11 range. Hemoglobin now normalized.
Family tells me that is in the works of bone marrow biopsy for suspicions of non-Hodgkin lymphoma
Chronic left foot heel neurotrophic wound -podiatry input noted. Underwent bedside debridement by podiatry on 04/16.
NOMI results noted. Left TBI severely reduced at 0. Findings may indicate small vessel disease. Right TBI moderately reduced. Appreciate vascular surgery input. Recommend outpatient follow-up.
MRI does not show osteomyelitis, but does show significant plantar fasciitis with adjacent patchy reactive marrow edema.
Chronic right foot fifth metatarsal wound -MRI does not show abscess or osteomyelitis.
Digital cyanosis -patient states she has had this for several months. Suspect underlying Raynaud's phenomena. Treat supportively with warming.
DVT prophylaxis-Eliquis
Full code
Dispo -will need SNF on discharge. Family contemplating hospice, hospice has been consulted.
Anticipated Discharge: 24 - 48 hours
Subjective/Interval History
-
Date of Service: April 27, 2024
Patient seen and examined. Denies cough or shortness of breath. No complaints.
Objective Data
-
Labs:
Laboratory Results
04/27/24
05:11
WBC 8.3
Hgb 12.6
Hct 40.1
Plt Count 217
Sodium 140
Potassium 3.3 L
Chloride 92 L
Carbon Dioxide 35 H
BUN 24 H
Creatinine 0.8
Glucose 99
Calcium 8.8
Vital Signs:
Vital Signs
Temp Pulse Resp BP Pulse Ox
97.1 F 99 20 146/78 95
04/27/24 07:35 04/27/24 07:35 04/27/24 07:35 04/27/24 07:35 04/27/24 09:49
I&O
04/26/24 04/27/24 04/28/24
06:59 06:59 06:59
Intake Total 900 / 900 560 / 560
Balance 900 / 900 560 / 560
Review of Systems
-
History Source: Patient
All other systems: Reviewed and negative
[2024-04-27] MEDS: KCL 40 MEQ PO (10:12)
[2024-04-27 10:15] LABS: Magnesium 1.2 mg/dl (1.6-2.3)
--- NOTE | 2024-04-27 10:30 | PTCARENOTE ---
Pt has run of 6 beat V-tach after taking PO meds/KCl 40 meq PO- coughing. Resolved without treatment. Telemetry currently showing Afib to 110's. Dr. Guerra aware. Will continue to monitor.
--- NOTE | 2024-04-27 11:00 | PTCARENOTE ---
Per leave pt on telemetry d/t recent 6 beat VT; HR afib to 130's at times .
[2024-04-27 11:20] VITALS: BP 144/85
[2024-04-27] MEDS: HYDROCORTISONE 2.5% CREAM 1 APPLIC TOPICAL ×2 (13:12→20:27)
[2024-04-27 13:52] VITALS: BMI 26.1
[2024-04-27] MEDS: TYLENOL 650 MG PO (14:51)
[2024-04-27] MEDS: MAGNESIUM SULFATE 100 IV (14:52)
[2024-04-27 15:35] VITALS: BP 151/88
--- NOTE | 2024-04-27 16:27 | PTCARENOTE ---
Pt AAO x3, has slight lt facial droop; TAVAREZ slowly; refuses OOB to chair activity; occ refuses q 2 hr turns. VSS. Telemetry:Afib; HR to 120's at times. On nc 4 lpm- pulse ox 96%, no SOB noted. Abd soft, rounded, annamarie PO; appetite poor. Incont
small amts loose brown BM. Incont urine. Resting quietly at present, no c/o. Will continue to monitor.
[2024-04-27 19:29] VITALS: BP 109/79
[2024-04-27] MEDS: KCL 20 MEQ PO (20:26)
--- NOTE | 2024-04-27 21:07 | PTCARENOTE ---
NIHSS = 4 {verbalized wrong month (1) slight L facial droop (1) bilateral LE drift (2)} Neuro check WNL, TAVAREZ, speech slow but clear. ELEMENTARY SECRETARY covering house made aware of current score. Plan of care ongoing.
[2024-04-27 23:21] VITALS: BP 126/74
[2024-04-27] MEDS: REMERON 7.5 MG PO (23:32)
[2024-04-28 03:25] VITALS: BP 128/58
[2024-04-28 05:41] LABS: ALT (SGPT) 39 U/L (0-35); AST (SGOT) 47 U/L (14-36); Albumin 2.9 g/dl (3.5-5.0); Alkaline Phosphatase 119 U/L (38-126); Blood Urea Nitrogen 21 mg/dl (7-17); Chloride 92 mmol/L (98-107); Estimated Creatinine Clearance 49 ml/min; Glucose 101 mg/dl (70-99); Potassium 3.6 mmol/L (3.5-5.1); Sodium 139 mmol/L (135-145); Total Bilirubin 1.2 mg/dl (0.2-1.3); Total Protein 5.8 g/dl (6.3-8.2); eGFR > 60.00
[2024-04-28 05:49] LABS: Carbon Dioxide 36 mmol/L (22-30)
[2024-04-28 06:00] VITALS: BMI 25.9
[2024-04-28 07:40] VITALS: BP 158/86
[2024-04-28] MEDS: CYMBALTA DELAYED RELEASE 60 MG PO (08:17)
[2024-04-28] MEDS: ELIQUIS 5 MG PO (08:17)
[2024-04-28] MEDS: KCL 20 MEQ PO (08:17)
[2024-04-28] MEDS: TOPROL XL 50 MG PO (08:17)
[2024-04-28] MEDS: MIRALAX PO (08:18)
[2024-04-28] MEDS: LASIX 40 MG PO (08:18)
[2024-04-28] MEDS: PROTONIX 40 MG PO (08:18)
[2024-04-28] MEDS: SANTYL OINTMENT 1 APPLIC TOPICAL (08:18)
[2024-04-28] MEDS: CARDIZEM CD 120 MG PO (08:18)
[2024-04-28] MEDS: DESITIN MAXIMUM STRENGTH PASTE 1 APPLIC TOPICAL (08:19)
[2024-04-28] MEDS: COLACE PO (08:19)
[2024-04-28] MEDS: HYDROCORTISONE 2.5% CREAM 1 APPLIC TOPICAL (08:19)
--- NOTE | 2024-04-28 09:51 | W.PN.HOSP.TC ---
Addendum entered and electronically signed by Jose Angel Guerra DO 04/28/24 10:13:
Informed by case management that family has agreed to home hospice and will be going home today once DME delivered.
Original Note:
Today's Communication/Plan
-
Add Claritin
Await hospice meeting
Discharge planning
Assessment / Plan
Assessment / Plan
General: Awake, alert, NAD but looks acutely and chronically ill.
HEENT: Normocephalic, Atraumatic and Dry Mucous Membranes
Respiratory: Decreased breath sounds bilateral; Clear to Auscultation; Negative Wheezes, Rales or Rhonchi
Cardiac: Irregular rate and rhythm, and S1/S2, systolic murmur
GI: Soft, Nontender and Nondistended
Musculoskeletal: Left heel wound with some erythema, granulation, scant purulent. Also right fifth digit wound with purulence. No Clubbing, No Cyanosis and No Edema
Neuro: Alert oriented today, still with generalized weakness and mild lethargy but much improved.
Skin: Less cyanotic fingertips bilaterally and toes bilaterally
Acute hypoxic respiratory insufficiency -currently on 2 L oxygen. Weight down to 64.1 kg today. Continue wean oxygen as able.
Repeat chest x-ray 04/26 shows improvement in left lower lobe infiltrate, consistent with improving pulmonary edema. Clinically doubt pneumonia given lack of cough, normal white blood cell count, afebrile. Rapid improvement in chest x-ray argues
against pneumonia. Discontinue further antibiotics.
Acute on chronic heart failure preserved EF -on Lasix and creatinine has remained stable. Now on oral Lasix.
Left pleural effusion -Left-sided thoracentesis completed 04/26, 850 cc straw-colored fluid removed.
Acute metabolic encephalopathy/acute stroke -multifactorial due to stroke and septic shock, critical illness, multiorgan failure, medication. Discontinue as needed Dilaudid and Compazine. Neurology consulted. MRI did show acute ischemic infarct,
small 5 mm.
Septic shock - due to deep left heel ulcer. Shock resolved. Leukocytosis resolved. Afebrile. Blood cultures negative. Wound culture shows Klebsiella, MSSA. Completed course of antibiotics on 04/20. ID following.
Dysphagia -improved. Tolerating regular diet. No bowel obstruction noted on x-ray. On 04/24 dietitian recommended NG tube feeding since patient not eating much. I will start her on mirtazapine at this might help her only for appetite but
adjustment disorder as well. I told NGT for feedings would be last resort and even then it would be a temporary measure.
Atrial fibrillation with rapid ventricular response -due to critical illness. Appreciate cardiology input. Still with fast rates. Amiodarone and atenolol discontinued, titrate Toprol-XL per cardiology. Continue Eliquis. Cardiology signed off
04/20.
JOYCE -due to septic shock, ATN. Nephrology following. Lisinopril on hold. JOYCE improved but now her creatinine and BUN are rising and I suspect it is due to hypovolemia from anorexia. Received IV fluids. Creatinine stable at 1.0 today.
Drummond removed. No retention on bladder scan.
Maculopapular rash -possibly related to amoxicillin exposure given timing of onset of rash. Augmentin discontinued. Continue topical hydrocortisone, add Claritin. Pharmacy to be notified of adverse effect.
Hyponatremia -improved.
Hypokalemia -improved.
Hypomagnesemia -repleted IV yesterday, recheck today.
Elevated troponin:
Elevated troponin likely due to acute non-ischemic myocardial injury due to sepsis. Troponin trending down.
Acute on chronic anemia - Baseline hemoglobin appears to be 10-11 range. Hemoglobin now normalized.
Family tells me that is in the works of bone marrow biopsy for suspicions of non-Hodgkin lymphoma
Chronic left foot heel neurotrophic wound -podiatry input noted. Underwent bedside debridement by podiatry on 04/16.
NOMI results noted. Left TBI severely reduced at 0. Findings may indicate small vessel disease. Right TBI moderately reduced. Appreciate vascular surgery input. Recommend outpatient follow-up.
MRI does not show osteomyelitis, but does show significant plantar fasciitis with adjacent patchy reactive marrow edema.
Chronic right foot fifth metatarsal wound -MRI does not show abscess or osteomyelitis.
Digital cyanosis -patient states she has had this for several months. Suspect underlying Raynaud's phenomena. Treat supportively with warming.
DVT prophylaxis-Eliquis
Full code
Dispo -will need SNF on discharge. Family contemplating hospice, hospice has been consulted.
Anticipated Discharge: Within 24 hours
Subjective/Interval History
-
Date of Service: April 28, 2024
Patient seen and examined. Complaining of rash.
Objective Data
-
Labs:
Laboratory Results
04/28/24
04:56
Sodium 139
Potassium 3.6
Chloride 92 L
Carbon Dioxide 36 H
BUN 21 H
Creatinine 0.7
Glucose 101 H
Calcium 9.0
Total Bilirubin 1.2
AST 47 H
ALT 39 H
Alkaline Phosphatase 119
Vital Signs:
Vital Signs
Temp Pulse Resp BP Pulse Ox
97.7 F 109 20 156/80 96
04/28/24 07:40 04/28/24 08:18 04/28/24 07:40 04/28/24 08:18 04/28/24 07:40
I&O
04/27/24 04/28/24 04/29/24
06:59 06:59 06:59
Intake Total 560 / 560 640 / 640
Balance 560 / 560 640 / 640
Review of Systems
-
History Source: Patient
All other systems: Reviewed and negative
--- NOTE | 2024-04-28 10:13 | W.DS.TRANS ---
DC Summary - Health Informatics Specialist
-
Discharge Instructions:
Sleep Apnea Risk Low
Discharge Diagnosis/Procedures Congestive heart failure, left pleural effusion,
dysphagia, acute kidney injury, drug rash,
acute cerebellar infarct
Diet Regular
Activity As tolerated
Driving Restrictions No driving
Bathing Restrictions None
Other Services Hospice
Instructions:
Stand-Alone Forms:
Changes to Home Medications: No
Discharge Medications:
DC Medications w/original date entered in [employer]
duloxetine 60 mg capsule,delayed release 60 mg PO DAILY Pain 09/30/22
apixaban 5 mg tablet (Eliquis) 5 mg PO BID #0 tabs 04/28/24
diltiazem HCl 120 mg capsule,extended release 24 hr 120 mg PO DAILY #30 caps 04/28/24
docusate sodium 100 mg capsule 100 mg PO BID #0 caps 04/28/24
furosemide 40 mg tablet 40 mg PO DAILY #30 tabs 04/28/24
hydrocortisone 2.5 % topical cream 1 applic topical BID #30 grams 04/28/24
metoprolol succinate 50 mg tablet,extended release 24 hr 50 mg PO BID #60 tabs 04/28/24
polyethylene glycol 3350 17 gram oral powder packet ([employer]) 17 g PO DAILY #0 ea 04/28/24
potassium chloride 20 mEq tablet,extended release(part/cryst) 20 meq PO BID #10 tabs 04/28/24
Home Medication Changes
Pending Results: No
[2024-04-28 10:21] LABS: Magnesium 2.3 mg/dl (1.6-2.3)
[2024-04-28 11:20] VITALS: BP 148/94
[2024-04-28 11:25] VITALS: BP 114/60
[2024-04-28] MEDS: DAKIN'S SOLUTION 0.125% 1/4 STRENGTH 1 ML TOPICAL (11:35)
[2024-04-28] MEDS: CLARITIN 10 MG PO (11:35)
--- NOTE | 2024-04-28 11:46 | CM ---
CM spoke with Sussy Cerda's son who advised that plan is for her to return home with hospice services. [facility] hospice will be the provider. CM sent referral via [employer] and contacted [facility] to discuss discharge to home. They have
received the referral and anticipate start of care today.
Requested call with confirmation of DME and medications having been delivered; CM will arrange ambulance transport home once confirmation of home hospice readiness.
Plan: Discharge to home with [facility] at home; discharge via ambulance. has completed out of hospital DNR.
--- NOTE | 2024-04-28 13:16 | CM ---
Addendum entered by Neetu Espinoza 04/28/24 15:19:
Transport time has changed to 1700. Family does not want Sussy Cerda discharged if all hospice DME is not delivered this afternoon.
Support provided.
[facility]
Original Note:
CM met with Sussy Cerda this am; she had just brushed her teeth and was in bed. This afternoon I spoke with her and son to discuss discharge home with [facility].
Multiple calls to [facility] to coordinate discharge. They advised that they do not have [facility] and asked for records to be faxed which was done.
This afternoon I called again and was advised that they did not see a terminal diagnosis in [facility]; CM reviewed diagnoses, and also advised that I had been told by another person that they did not have [facility], so had sent 50 page document with
clinical.
Transportation via ambulance requested for 4pm chicken picker pending DME delivery time.
Family ([place]) is waiting at home for DME to be delivered.
--- NOTE | 2024-04-28 14:18 | PTOTSP ---
Chart reviewed. Patient to transfer home on hospice care today; skilled therapy no longer warranted.
Will discharge from case load. If needs change, please re-consult.
[2024-04-28 15:30] VITALS: BP 123/67
[2024-04-28] MEDS: LOPRESSOR 5 MG IV (15:50)
[2024-04-28] MEDS: ALPRAZOLAM ODT 0.5 MG PO (15:50)
--- NOTE | 2024-04-28 16:02 | CM ---
DME has been delivered to the home for Sussy Cerda. Pt's is unhappy with the bed that was delivered, stating she had previously had a bed like this in the past and was very uncomfortable. Support provided and explained that CM does not have
the ability to modify the equipment that was delivered; advised Mr. Berry that the DME company is contracted by the hospice agency. Mr. Berry plans to call the [facility] to discuss his concern and see if they have any ability to modify to a
higher-end bed for Sussy Cerda.
Plan: Sussy Cerda is for discharge via ambulance to home today at 5PM. Unclear at this time if pt's will agree to discharge. IMM provided.
== END 2024-04-28 17:23 | disposition hospice, home (50) | DRG 853 ==
LOC: 4 EAST ACU 17:58
PROVIDERS: Nurse Practitioner Family; Radiology Vascular & Interventional Radiology; ADMITTING PHYSICIAN Hospitalist; ATTENDING PHYSICIAN Hospitalist; CONSULT PHYSICIAN Internal Medicine; CONSULT PHYSICIAN Podiatrist Foot & Ankle Surgery; CONSULT PHYSICIAN Psychiatry & Neurology Neurology; CONSULT PHYSICIAN Student in an Organized Health Care Education/Training Program; EMERGENCY PHYSICIAN Emergency Medicine; FAMILY PHYSICIAN Family Medicine; OTHER PHYSICIAN Internal Medicine Critical Care Medicine; OTHER PHYSICIAN Internal Medicine Infectious Disease; OTHER PHYSICIAN Surgery Vascular Surgery
PROC: 02HV33Z Insertion of Infusion Device into Superior Vena Cava, Percutaneous Approach (ICD-10-PCS; 2024-04-13)
PROC: 0W9B3ZZ Drainage of Left Pleural Cavity, Percutaneous Approach (ICD-10-PCS; 2024-04-26)
PROC: 0JBQ0ZZ Excision of Right Foot Subcutaneous Tissue and Fascia, Open Approach (ICD-10-PCS; 2024-04-26)
PROC: 0JBR0ZZ Excision of Left Foot Subcutaneous Tissue and Fascia, Open Approach (ICD-10-PCS; 2024-04-26)
DX: A41.01 Sepsis due to Methicillin susceptible Staphylococcus aureus (principal); G92.8 Other toxic encephalopathy; L89.624 Pressure ulcer of left heel, stage 4; L89.894 Pressure ulcer of other site, stage 4; R65.21 Severe sepsis with septic shock; N17.0 Acute kidney failure with tubular necrosis; I50.33 Acute on chronic diastolic (congestive) heart failure; I63.9 Cerebral infarction, unspecified; N39.0 Urinary tract infection, site not specified; E87.21 Acute metabolic acidosis; E87.1 Hypo-osmolality and hyponatremia; I5A Non-ischemic myocardial injury (non-traumatic); I48.19 Other persistent atrial fibrillation; B96.1 Klebsiella pneumoniae [K. pneumoniae] as the cause of diseases classified elsewhere; D50.9 Iron deficiency anemia, unspecified; E78.00 Pure hypercholesterolemia, unspecified; G43.909 Migraine, unspecified, not intractable, without status migrainosus; K58.8 Other irritable bowel syndrome; G62.9 Polyneuropathy, unspecified; G25.81 Restless legs syndrome; M54.9 Dorsalgia, unspecified; I11.0 Hypertensive heart disease with heart failure; J98.4 Other disorders of lung; K21.9 Gastro-esophageal reflux disease without esophagitis; I27.20 Pulmonary hypertension, unspecified; I08.3 Combined rheumatic disorders of mitral, aortic and tricuspid valves; M19.90 Unspecified osteoarthritis, unspecified site; M81.0 Age-related osteoporosis without current pathological fracture; D47.2 Monoclonal gammopathy; R74.01 Elevation of levels of liver transaminase levels; R79.1 Abnormal coagulation profile; R06.89 Other abnormalities of breathing; R09.02 Hypoxemia; I73.9 Peripheral vascular disease, unspecified; R13.12 Dysphagia, oropharyngeal phase; I73.00 Raynaud's syndrome without gangrene; R62.7 Adult failure to thrive; L27.0 Generalized skin eruption due to drugs and medicaments taken internally; E87.6 Hypokalemia; E83.42 Hypomagnesemia; R47.81 Slurred speech; T36.95XA Adverse effect of unspecified systemic antibiotic, initial encounter; Y92.239 Unspecified place in hospital as the place of occurrence of the external cause; Z96.641 Presence of right artificial hip joint; Z96.653 Presence of artificial knee joint, bilateral; Q82.0 Hereditary lymphedema; Z86.718 Personal history of other venous thrombosis and embolism; Z90.710 Acquired absence of both cervix and uterus; Z11.52 Encounter for screening for COVID-19; Z86.711 Personal history of pulmonary embolism; Z87.440 Personal history of urinary (tract) infections; Z88.1 Allergy status to other antibiotic agents; Z88.2 Allergy status to sulfonamides; Z88.8 Allergy status to other drugs, medicaments and biological substances; Z87.11 Personal history of peptic ulcer disease; Z82.49 Family history of ischemic heart disease and other diseases of the circulatory system; Z82.3 Family history of stroke; Z68.25 Body mass index [BMI] 25.0-25.9, adult
CPT/HCPCS: 88305; 32555; 70450; 70553; 71045; 71046; 71250; 73620; 73718; 73721; 74022; 74176; 76700; 76830; 76856; 80048; 80053; 80202; 81003; 81015; 82248; 82533; 82805; 82945; 82962; 82977; 83036; 83605; 83615; 83735; 83880; 83986; 84100; 84157; 84484; 85025; 85027; 85520; 85610; 85730; 86850; 86900; 86901; 87015; 87040; 87070; 87077; 87086; 87147; 87186; 87205; 87641; 87811; 88112; 89051; 92526; 92610; 93005; 93306; 93922; 96361; 96365; 96366; 96367; 96375; 97163; 97167; 97530; 99291; 99292; A9575